=== PATIENT | female | born 1990 | race Caucasian/White ===

== ENCOUNTER 2024-01-01 23:45 | Emergency (ER) | payer OTHER, SELFPAY ==
[2024-01-01 23:52] VITALS: BP 155/89; PULSE 89; RESP 18; TEMP 36.6; O2SAT 99; BMI 50.1
--- NOTE | 2024-01-02 00:07 | ED_ITS ---
HPI - General Adult General Chief complaint: Neck Injury/Pain Stated complaint: Right side upper Neck pain Time Seen by Provider: 01/02/24 00:04 History of Present Illness HPI narrative: CC: Neck Pain pt. was in work related accident about 16 months ago. pain is worse. pt. states herniated discs c4-c7 and bulging disc in c6. denies further injury. 33 year old woman presenting to the emergency depart with concern of worsening neck pain. Has been particularly bad or more inflamed over the last 3 days. May of 2023 sustained an injury at work; she describes an axial load injury to her head by a heavy box. Since then time she has been struggling more with headaches and radiating pain into the left shoulder and shoulder blade and down her right arm. She does get numb fingers as well. Does have copy of June 2023 MRI showing disc impingement in the lower cervical spine. This pain is sharp and shooting in quality. Not specifically with weakness. Has been having trouble sleeping particularly over the last 3 days with escalation of this pain. Has tried warm and cold packs, rubbing on a tennis balls and all of her medications. Has been working with work comp. I did review medications which include naproxen and had been on gabapentin but now taking topiramate due to persistent headaches as well as being initiated on baclofen. She has received steroid injections. She does anticipate an appointment with her primary care provider tomorrow. Related Data Home Medications Medication Instructions Recorded Confirmed semaglutide 0.25 mg or 0.5 mg (2 0.25 mg subcut Q14D 01/01/24 01/01/24 mg/3 mL) subcutaneous pen injector (Ozempic) topiramate 25 mg tablet 50 mg PO BID 01/01/24 01/01/24 Allergies Allergy/AdvReac Type Severity Reaction Status Date / Time hydrocodone Allergy Mild Hives Verified 01/01/24 23:56 Review of Systems Status of ROS: Reports: 6 or more systems reviewed and unremarkable except as noted in History and below [facility] Social History Smoking Status: Never smoker Second hand tobacco smoke exposure: No How often do you have a drink containing alcohol: never How often do you have six or more drinks on one occasion: Never AUDIT-C Alcohol total score: 0 Non-prescribed substance use: marijuana (any form) Exam Narrative: Exam Narrative: She is pleasant. Resting semi recumbent. Calm. Not complaining. Moving very stiffly. Good strength in all extremities apparent. Good rotation of her neck to the left but limited to about 20? to the right with only slight flexion to the right when she reports new pain really escalates. I do not appreciate atrophy in the shoulders. She is not hypesthetic in her responses. Const: Vital Signs, click to edit/add: Vital Signs - 24 hr 01/01/24 23:52 01/02/24 00:44 Temperature 97.8 F 97.8 F Pulse Rate [Right Pulse Oximeter] 89 84 Respiratory Rate 18 18 Blood Pressure [Ri ght Upper Arm] 155/89 H 138/84 Pulse Oximetry 99 99 Oxygen Delivery Me thod Room Air Room Air Documenting provider has reviewed patient's vital signs: yes Course Vital Signs Vital signs: Initial Vital Signs Temperature 97.8 F 01/01/24 23:52 Temperature Source Temporal Artery Scan 01/01/24 23:52 Pulse Rate 89 01/01/24 23:52 Respiratory Rate 18 01/01/24 23:52 Blood Pressure 155/89 H 01/01/24 23:52 Blood Pressure Mean 111 H 01/01/24 23:52 Blood Pressure Position Sitting 01/01/24 23:52 Pulse Oximetry 99 01/01/24 23:52 Oxygen Delivery Method Room Air 01/01/24 23:52 Vital Signs Temperature 97.8 F 01/01/24 23:52 Pulse Rate 89 01/01/24 23:52 Respiratory Rate 18 01/01/24 23:52 Blood Pressure 155/89 H 01/01/24 23:52 Pulse Oximetry 99 01/01/24 23:52 Oxygen Delivery Method Room Air 01/01/24 23:52 Temperature 97.8 F 01/02/24 00:44 Pulse Rate 84 01/02/24 00:44 Respiratory Rate 18 01/02/24 00:44 Blood Pressure 138/84 01/02/24 00:44 Pulse Oximetry 99 01/02/24 00:44 Oxygen Delivery Method Room Air 01/02/24 00:44 Medical Decision Making MDM Narrative Medical decision making narrative: I inquire as to how she thinks we can help. Does not appear to need any new imaging. She would just like some temporary relief from pain. Ms. Minor does mention how there had been some discussion of neck collar of some sort to provide for what sounds like some offloading of this disc. I think we could provide a soft collar. She readily accepts this. We did discuss potential use of prednisone but with a diabetes she does note that her blood sugars tend ago rather high with prednisone. Is already using numerous classes of medications in her pain management. She is looking forward to potential visit with pain clinic although noting that surgery is anticipated once she is approved by insurance. We discussed potential benefit and concerns related to opiates. She is amenable to trying some just temporarily. See patient discharge plan for further discussion Discharge Plan Discharge Clinical Impression: Cervical radiculopathy Patient Disposition: Home, Self-Care Condition: Stable Additional Instructions: Wear the soft collar for comfort over the next week or so. Discuss with care provider otherwise as to how much you should be relying on this. Can take acetaminophen with any of the medications you are prescribed. You can take up to 1000 mg of acetaminophen every 4-6 hours not to exceed 4000 mg in 24 hours. Can take up to 800 mg of ibuprofen per dose but not at the same time of course as naproxen as you noted. Please follow-up with your primary care provider as scheduled tomorrow to discuss further plan for pain management or stop gap measures that can be taken. Best wishes in your anticipated surgery. [place] from [facility]. Keep in mind that each tablet of [place] contains 325mg of acetaminophen. Prescriptions: No Action Ozempic 0.25 mg or 0.5 mg (2 mg/3 mL) pen injector 0.25 mg subcut Q14D topiramate 25 mg tablet 50 mg PO BID Stand Alone Forms: mimoOn Info Instructions
[2024-01-02 00:44] VITALS: BP 138/84; PULSE 84; RESP 18; TEMP 36.6; O2SAT 99
--- OUTSIDE RECORDS SUMMARY | 2024-01-02 00:44 | XMS_ITS | Clinical Summary ---
Demographics Address [address] [facility] [place] [place] [address] Home Phone Phone Mobile Phone Email Address Preferred Language Bangladeshi Marital Status Unknown Uatsdin Affiliation Anglican Race White Ethnic Group Not or Lati no Author Name Unknown Organization [facility] Address [place], [place] [address] Care Team Providers Care Hospice/Home Health Aide Name Role Phone Pepe Caro Primary Care Provider [phone] Allergies Active Allergy Reactions Criticality Noted Date Comments Adhesive Rash 01/20/2010 tapes Adhesive Tape-Silicones Other - Describe In Comment Field 01/28/2011 Hydrocodone-Acetamino phen Itching 12/19/2016 Other reaction(s): itchy Metformin *Unknown - Pt Doesn' t Remember 12/20/2022 Medications Medication Sig Dispensed Refills Start Date End Date Status levothyroxine (SYNTHROID) 100 mcg tablet Take 176 mcg by mouth before breakfast. Active GLUCOSAM/GLUC ESCALANTE/[id number] (GLUCOSAMINE COMPLEX ORAL) Take 1 Tablet by mouth once daily. Active escitalopram oxalate (LEXAPRO) 10 mg tablet Take 10 mg by mouth once daily. Active gemfibrozil (LOPID) 600 mg tablet Take 600 mg by mouth 2 times daily before meals. Active glimepiride (AMARYL) 1 mg tablet Take 1 mg by mouth once daily with a meal. Active albuterol HFA (PRO-AIR; VENTOLIN; PROVENTIL) 90 mcg/actuation inhaler Inhale 2 Puffs by mouth every 4 hours if needed. 09/27/2021 Active buPROPion (WELLBUTRIN XL) 150 mg Extended-Release tablet Take 150 mg by mouth once daily. 09/09/2021 Active cyclobenzaprine (FLEXERIL) 10 mg tablet Take 10 mg by mouth at bedtime if needed. 09/09/2021 Active doxycycline (VIBRAMYCIN) 100 mg capsule Take 100 mg by mouth 2 times daily. 02/04/2022 Active semaglutide (Ozempic) 1 mg/dose (2 mg/1.5 mL) pen Inject 1 mg subcutaneous once weekly. Active oxyCODONE (ROXICODONE) 5 mg immediate release tabletIndications: Hidradenitis Take 1 Tablet (5 mg) by mouth every 4 hours if needed for Pain. 15 Tablet 02/18/2022 Active ibuprofen (ADVIL; MOTRIN) 600 mg tabletIndications: Postoperative pain Take 1 Tablet (600 mg) by mouth every 6 hours if needed for Pain. Maximum of 3200 mg in 24 hours. 30 Tablet 12/22/2022 Active Active Problems Problem Noted Date Diagnosed Date Headache(784.0) 01/10/2008 Polycystic ovaries 11/24/2006 Hirsutism 11/24/2006 Other general counseling and advice for contraceptive management 11/24/2006 Immunizations Name Administration Dates Next Due Hepatitis B (Peds) 07/12/2000 Human Papilloma Virus Vaccine 08/03/2010, 010 Influenza A (H1N1), Inactivated (Age >=3 Years) 10/01/2009 Influenza, IIV3 (Age >=3 years) 10/01/2009 Td (Age >=7 Years) 07/12/2000 Tdap 06/10/2009 Family History Medical History Relation Name Comments Diabetes Maternal Grandfather Heart Disease Maternal Grandfather Heart Disease Mother Hypertension Mother Diabetes Paternal Grandfather Heart Disease Paternal Grandfather Relation Name Status Comments Brother Alive Father Alive Maternal Grandfather Maternal Grandmother Alive Mother Alive Paternal Grandfather Paternal Grandmother Alive Sister 1 Alive Sister 2 Alive Social History Tobacco Use Types Packs/Day Years Used Date Smoking Tobacco: Never Smokeless Tobacco: Never Alcohol Use Standard Drinks/Week Comments No 0 (1 standard drink = 0.6 oz pur e alcohol) Sex and Gender Information Value Date Recorded Sex Assigned at Not on file Gender Identity Not on file Sexual Orientation Not on file Obstetrics History Last Filed Vital Signs Vital Sign Reading Time Taken Comments Blood Pressure 106/51 12/22/2022 10:15 AM CDT Pulse 79 12/22/2022 10:30 AM CDT Temperature 36.2 ??C (97.1 ??F) 12/22/2022 9:00 AM CD T Respiratory Rate 16 12/22/2022 10:3 0 AM CDT Oxygen Saturation 98% 12/22/2022 10: 30 AM CDT Inhaled Oxygen Concentration - - Weight 144.9 kg (319 lb 6.4 oz) 12/22/2022 6:52 AM CDT Height 170.2 cm (5' 7) 12/22/2022 6:52 AM CDT Body Mass Index 50.03 12/22/2022 6:52 AM CDT Plan of Treatment Health Maintenance Due Date Last Done Comments Depression screening for age 12+ 2001 HIV for age 15-65 01/09/2004 Hepatitis C screening for ag e 18-79 2007 Pap test for age 21-65 09/15/2012 9, 09/15/2009, 11/10/2008 BMI (ht and wt on same day) for age 18+ 12/16/2017 12/16/2016 Tetanus booster 06/10/2019 06/10/2009, 07/12/2000 COVID-19 vaccine series ( season) 2023 11/04/2021, 09/09/2021 Influenza for age 9-49 05/19/2024 0, 10/01/2009 Tdap Completed 06/10/2009 Pneumococcal series for age 6-64 Aged Out No longer eligible b ased on patient's age to complete this topic Medical Devices Implanted Type Area Trauma Manager Device Identifier Shelf Expiration Date Model / Serial / Lot Sys Intrauterine Mirena - [id number] Implanted:Qty: 1 on 12/22/2022 by Juan Fragoso MD at [facility] N/A: Uterus [employer] 11/15/2024 [id number] / / [id number] Procedures Procedure Name Priority Date/Time Associated Diagnosis Comments HEALTHCARE LIAISON THIN PREP PAP SCREEN IMAGED Routine 09/15/2009 3:42 PM SYSTEMS INTEGRATOR Abnormal Glandular Papanicolaou Smear of Cervix from Last 3 Months or Most Recently Relevant to Health Maintenance Results * HEALTHCARE LIAISON THIN PREP PAP SCREEN IMAGED (09/15/2009 3:42 PM SYSTEMS INTEGRATOR) CYTOLOGY CYTOPATHOLOGY REPORT [facility] Status: CORRECTED REPORT ?[id number] CLINICAL INFORMATION Last Date of LMP ? :absent Last Pap Date ?:11/10/08 Last Pap Result ?:LSIL ABN [place]/Bx Past 5 YRS :None Hormone Usage ?:None Menstrual Status ? :Irregular Periods [place]/Bx done today ? :No Additional Information :None given HPV Request ?:HPV if ASCUS SPECIMEN SOURCE ?:Cervical/vagina l ThinPrep Vial, screening SPECIMEN ADEQUACY ?:Satisfactory for evaluation Endocervical component ? present. INTERPRETATION/RES ULT Negative for intraepithelial lesion or malignancy (NIL) EDUCATIONAL NOTES AND SUGGESTIONS displays the correct provider order. This corrected report is issued to reflect the clinic incorrectly ordered this ThinPrep Pap as Screening instead of Diagnostic. The diagnosis does not change. Cytology 1st Screener ??:ll Cytology 2nd Screener ??:cmm Signed by ?: AP Technologist This specimen was screened by the FDA approved ThinPrep Imaging System and manually reviewed. NOTE: ??The Pap test is a screening technique, not a diagnostic procedure. ??It is used ??primarily to screen for squamous cancers and precursor lesions. ??Published studies have shown that it is subject to both false negative and false positive results. ??The pap test should not be used as the sole means to diagnose or exclude pre-malignant and malignant lesions. COLLECTED:09/15/09 ? ACCESSIONED: ??09/16/09 ?? 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 Do not delete or resolve the infection flag. 02/10/2022 02/10/2022 Guarantor Name Account Type Relation to Patient Date of Phone Billing Address Michelle Glover Personal/Family Self 1990 [address] [place] [address] Michelle Glover Personal/Family Self 1990 [address] [place] [address] Michelle Glover Workers Comp Self 1990 [id number] [address] [address] [address] Person[employer],[facility] Self [address] [place] [address] Advance Directives * Full Code (Latest Code Status on File) Date Activated Date Inactivated Comments 12/22/2022 6:36 AM 12/22/2022 2:50 PM Question Answer Comments Code Status Discussion: Reviewed Preferences * Full Code Date Activated Date Inactivated Comments 02/18/2022 11:26 AM 02/18/2022 5:46 PM Question Answer Comments Code Status Discussion: Unable to Assess Preferences, Provider to review later * Full Code Date Activated Date Inactivated Comments 12/19/2016 11:03 AM 12/19/2016 5:58 PM Care Teams Hospice/Home Health Aide Relationship Specialty Start Date End Date Pepe Caro PA PCP - General Physician Front Office Secretary 02/09/22
--- OUTSIDE RECORDS SUMMARY | 2024-01-02 00:44 | XMS_ITS | Clinical Summary ---
Demographics Address [address] [place] [address] Mobile Phone Home Phone Preferred Language ENG Marital Status Unknown Worship Affiliation Unknown Race Unknown Ethnic Group Non , /a, or Maori Origin Author Name Unknown Organization [facility] Address [address] [place] [address] Care Team Providers Care Mail Distribution Clerk Name Role Phone Unavailable Primary Care Provider Unavailabl e Source Comments You are receiving this document as you are listed as the primary care provider,follow-up provider, or the patient has been referred to you for consultation.This is in compliance with the Medicare andMedicaid EHR Incentive Program,which states Providers who transition their patient to another setting of careor provider of care or refers their patient to another provider of care shouldprovide summary care record for each transition of care or referral. [facility] Allergies Active Allergy Reactions Criticality Noted Date Comments Morphine And Related Gastrointestinal 2 Also Itching Medications Medication Sig Dispensed Refills Start Date End Date Status drug not in computer A whole list, cant think of them all. Glipizide for sure. Active Active Problems No known active problems Social History Tobacco Use Types Packs/Day Years Used Date Smoking Tobacco: Never Smokeless Tobacco: Never Tobacco Cessation:Counseling Given: Not Answered Sex and Gender Information Value Date Recorded Sex Assigned at Not on file Gender Identity Not on file Sexual Orientation Not on file Last Filed Vital Signs Vital Sign Reading Time Taken Comments Blood Pressure 143/96 04/07/2022 6:34 PM CDT Pulse 92 04/07/2022 6:34 PM CDT Temperature 37 ??C (98.6 ??F) 04/07/2022 6:34 PM CDT Respiratory Rate 20 04/07/2022 6:34 PM CDT Oxygen Saturation 100% 04/07/2022 6:34 PM CDT Inhaled Oxygen Concentration - - Weight - - Height - - Body Mass Index - - Plan of Treatment Health Maintenance Due Date Last Done Comments Cervical Cancer Screening Due 1989 Hep C Screening (Preventive Services) 1989 IPV (Polio) (2 of 3 - 4-dose series) 01/24/1994 12/27/1993 HIV Screening (Preventive Services) 2005 Adult Preventive Visit 2007 HepB (1) 01/09/2008 DTaP/Tdap/Td (3 - Tdap) 06/10/2019 06/10/2009, 12/27 COVID-19 Vaccine (1 - 2022-24 season) 2023 Influenza (#1) 2023 07/09/2015, 06/20, 08/03/2011, Additional history exists Zoster/Shingles (1 of 2) 2039 Pneumococcal Aged Out 07/17/2014 No longer eligi ble based on patient's age to complete this topic HPV Vaccine Completed 07/09/2015, 01/2014, 04/07/2011, Additional history exists HepA Aged Out No longer eligi ble based on patient's age to complete this topic Hib Aged Out No longer eligi ble based on patient's age to complete this topic MCV4 Aged Out No longer eligi ble based on patient's age to complete this topic Guarantor Name Account Type Relation to Patient Date of Phone Billing Address Michelle Minor Personal/Family Self 1990 [address] [place] [address] Michelle Minor Personal/Family Self 1990 [address] [place] [address]
[2024-01-02 00:45] VITALS: BP 138/84; PULSE 84; RESP 18; TEMP 36.6
--- OUTSIDE RECORDS SUMMARY | 2024-01-02 00:45 | XMS_ITS ---
Author Name Unknown Organization [facility] Address [address] [place] [address] Care Team Providers Care Coin Purse Framer Name Role Phone Unavailable Unavailable Unavailable Surgery Details Not on file Complications Check Surgery Details section. Procedure Estimated Blood Loss Check Surgery Details section. Procedure Findings Check Surgery Details section. Procedure Specimens Taken Check Surgery Details section.
--- OUTSIDE RECORDS SUMMARY | 2024-01-02 00:45 | XMS_ITS | Encounter Summary ---
Author Name Unknown Organization [facility] Address [address] [place] [address] Care Team Providers Care Measuring Clerk Name Role Phone Elsewhere, Pcp Primary Care Provider Unavailabl e Encounter Details Date Type Department Care Team (Late st Contact Info) Description 11/30/2023 Orders Only Department of Obstetrics and Gynecology in [address] [address] Inna Arias, SYLWIA, C.N.P. [address] [place] [id number] Diabetes Mellitus Type 2 Hyperglycemia (HCC) (Primary Dx); Hypothyroidism Social History Tobacco Use Types Packs/Day Years Used Date Smoking Tobacco: Never Smokeless Tobacco: Never Alcohol Use Standard Drinks/Week Comments No 0 (1 standard drink = 0.6 oz pur e alcohol) Humiliation, Afraid, Rape, and Kick questionnair e Answer Date Recorded Within the last year, have y ou been afraid of your partner or ex-partner? No 09/09/2021 Within the last year, have y ou been humiliated or emotionally abused in other ways by your partner or ex-partner? No Within the last year, have y ou been kicked, hit, slapped, or otherwise physically hurt by your partner or ex-partner? No 09/09/2021 Within the last year, have y ou been raped or forced to have any kind of sexual activity by your partner or ex-partner? No 09/09/2021 Social Connection and Isolat ion Panel [NHANES] Answer Date Recorded In a typical week, how many times do you talk on the phone with family, friends, or neighbors? More than three times a week 09/09/2021 How often do you get togethe r with friends or relatives? Twice a week 09/09/2021 How often do you attend chur ch or mu-ism services? Never 09/09/2021 Do you belong to any clubs o r organizations such as judaism groups, unions, fraternal or athletic groups, or school groups? No 09/09/2021 How often do you attend meet ings of the clubs or organizations you belong to? Never 09/09/2021 Are you , , di vorced, , never , or living with a partner? 09/09/2021 AUDIT-C Answer Date Recorded Q1: How often do you have a drink containing alc ohol? Never 09/09/2021 Average Number of Drinks Not on file 021 Frequency of Binge Drinking Not on file 08/19 Overall Financial Resource Strain (CARDIA) Answe r Date Recorded How hard is it for you to pa y for the very basics like food, housing, medical care, and heating? Not hard at all 09/09/2021 PHQ-2 Answer Date Recorded PHQ-2 Score 0 11/28/2023 [facility] - Occupational Stress Questionnaire Answer Date Recorded Do you feel stress - tense, restless, nervous, or anxious, or unable to sleep at night because your mind is troubled all the time - these days? Only a little 09/09/2021 Exercise Vital Sign Answer Date Recorde d On average, how many days pe r week do you engage in moderate to strenuous exercise (like a brisk walk)? 5 days 09/09/2021 On average, how many minutes do you engage in exercise at this level? 50 min 09/09/2021 Hunger Vital Sign Answer Date Recorded Within the past 12 months, y ou worried that your food would run out before you got the money to buy more. Never true 09/09/20 21 Within the past 12 months, t he food you bought just didn't last and you didn't have money to get more. Never true 09/09/2021 PRAPARE - Transportation Answer Date Re corded In the past 12 months, has l ack of transportation kept you from medical appointments or from getting medications? No 08/19 In the past 12 months, has l ack of transportation kept you from meetings, work, or from getting things needed for daily living? No 09/09/2021 Housing Stability Vital Sign Answer Brandon e Recorded In the last 12 months, was t here a time when you were not able to pay the mortgage or rent on time? No 09/09/2021 In the last 12 months, how many places have you lived? 1 09/09/2021 In the last 12 months, was t here a time when you did not have a steady place to sleep or slept in a residential (including now)? No 09/09/2021 Depression Answer Date Recor ded PHQ-9 Total Score (max 27) 4 11/27 Nutrition Answer Date Recorded Nutrition: EVOO Fat Source No 09/09 On average, how many serving s of fruits and vegetables do you eat per day (serving size is equal to 1 cup or approximately the size of a tennis ball)? 2-3 09/09/2021 Dental Answer Date Recorded Dental: Regular Dentist Yes 09/09/20 Employment Answer Date Recorded Employment status Employed and actively working without restrictions 09/09/2021 Education Answer Date Recorded What is the highest level of school you have completed or the highest degree you have received? 12th grade 03/22/2020 Sex and Gender Information Value Date Recorded Sex Assigned at Not on file Gender Identity Not on file Sexual Orientation Bisexual 03/22/2020 7: 55 PM CDT documented as of this encounter Plan of Treatment Scheduled Orders Name Type Priority Associated Diagnoses Orde r Schedule Hemoglobin A1c Lab Routine Diabetes Mellitus Type 2 Hyperglycemia (HCC) Expected: 06/01/2024 (Approximate), Expires: 11/29/2024 S-TSH (Thyroid-Stimulating Hormone - Sensitive) Lab Routine Hypothyroidism Expected: 06/01/2024 (Approximate), Expires: 03/01/2025 documented as of this encounter Visit Diagnoses Diagnosis Diabetes Mellitus Type 2 Hyperglycemia (HCC)- Primary Hypothyroidism documented in this encounter Additional Health Concerns Assessment Noted Time PHQ-9 Depression Total Score: 4 11/28/19 24 2:28 PM CDT documented as of this encounter Care Teams Measuring Clerk Relationship Specialty Start Date End Date Elsewhere, Pcp PCP - General Internal Medicine 08/30/22 documented as of this encounter
--- OUTSIDE RECORDS SUMMARY | 2024-01-02 00:45 | XMS_ITS | Referral Summary ---
Author Name Unknown Organization [facility] Address [address] [place] [address] Care Team Providers Care Tangled Yarn Worker Name Role Phone Elsewhere, Pcp Primary Care Provider Unavailabl e Source Comments Patient records contain information from all sites at [facility]. For routine questions regarding patient records, call [phone] during business hours, M-F 8:00 AM - 5:00 PM Central Time. Record requests for emergency care only can be directed to [phone] at any time.[facility] Encounters Date Type Department Care Team Description 11/30/2023 Orders Only Department of Obstetrics and Gynecology in [place], [place] [address] [place] [address] Inna Arias APRN, C.N.P. Diabetes Mellitus Type 2 Hyperglycemia (HCC) (Primary Dx); Hypothyroidism 11/28/2023 3:17 PM CDT - 11/28/2023 11:59 PM CDT Hospital Encounter Department of Laboratory Medicine in [place], [place] [address] [place] [phone] Inna Arias APRN, C.N.P. Preventive Gynecological Exam Discharge Disposition: Home or Self Care 11/28/2023 2:30 PM CDT Office Visit Department of Obstetrics and Gynecology in [place], [place] [address] [place] [phone] Inna Arias APRN, C.N.P. Preventive Gynecological Exam (Primary Dx); Diabetes Mellitus Type 2 Hyperglycemia (HCC); Polycystic Ovary Syndrome; Surveillance Intrauterine Device Discharge Disposition: Home or Self Care from Last 3 Months Allergies Active Allergy Reactions Criticality Noted Date Comments Adhesive Tape-Silicones Other (see comments) 01/28/2011 Hydrocodone-Acetamino phen Itching,Rash 11/26/2015 Metformin GI intolerance Low 11/25/2019 CANNOT tolerate even 500mg ER daily or 250mg twice daily Morphine GI intolerance 04/04/2022 Also Itching Medications Medication Sig Dispensed Refills Start Date End Date Status GLUCOSAMINE SULFATE (GLUCOSAMINE ORAL) Take 1 tablet by mouth daily. 10/07/2015 Active flash glucose sensor (FreeStyle Catherine 14 Day Sensor) kitIndications:Diab etes Mellitus Type 2 Hyperglycemia (HCC) 1 each every 14 (fourteen) days. 6 kit 11 09/09/2021 Active blood sugar diagnostic stripsIndications:D iabetes Mellitus Type 2 Hyperglycemia (HCC) 2 test daily. 60 test 11 09/09/2021 4 Active blood glucose ctl high,nml,low solutionIndications :Diabetes Mellitus Type 2 Hyperglycemia (HCC) Glucose control solution provides an easy way to ensure accurate blood glucose testing. 1 each 09/09/2021 Active pen needle, diabetic (BD Ultra-Fine Short Pen Needle) 31 gauge x 5/16 needleIndications:D iabetes Mellitus Type 2 Hyperglycemia (HCC) 2 Injection daily. 200 each 11 09/09/2021 Active albuterol (ProAir HFA) 90 mcg/actuation inhaler Inhale 2 puffs every 4 (four) hours as needed for wheezing or shortness of breath. 25.5 g 3 09/27/2021 Active pen needle, diabetic (Pen Needle) 31 gauge x 3/16 needle 1 each (1 Injection total) daily. 100 each 11 01/07/2022 Active blood-glucose meter,continuous misc Use to monitor blood glucose (DX: E11.65) 1 each 01/07/2022 Active blood-glucose sensor device Change sensor every 10 days (DX: E11.65) 9 each 3 01/07/2022 Active blood-glucose transmitter device Change transmitter every 3 months. (DX: E11.65) 1 each 4 01/07/2022 Active atorvastatin (LIPITOR) 10 mg tablet Take 1 tablet (10 mg total) by mouth daily. 90 tablet 3 11/11/2022 Active levothyroxine (SYNTHROID, LEVOTHROID) 88 mcg tablet Take 2 tablets (176 mcg total) by mouth daily. 180 tablet 3 11/11/2022 Active glipiZIDE (GLUCOTROL) 5 mg tablet Take 2 tablets (10 mg total) by mouth 2 (two) times a day before breakfast and dinner. 360 tablet 3 11/11/2022 Active buPROPion XL (WELLBUTRIN XL) 150 mg 24 hr tablet Take 1 tablet (150 mg total) by mouth every morning. 90 tablet 3 11/11/2022 Active traMADoL (ULTRAM) 50 mg tabletIndications:C hronic Pain/Nonacute Pain Take 1-2 tablets (50-100 mg total) by mouth every 6 (six) hours as needed for moderate pain or score 4-6 of 10 Indications: Chronic Pain/Nonacute Pain. 30 tablet 11/11/2022 Active cyclobenzaprine (FLEXERIL) 10 mg tablet Active naproxen-capsicum oleoresin 500 mg- 0.025 % kit 1 tablet with food or milk as needed Orally every 8 hrs for 30 days Active baclofen (LIORESAL) 10 mg tablet 1 tablet as needed Orally Three times a day for 30 days Active methocarbamoL (ROBAXIN) 500 mg tablet Take 1 tablet by mouth daily. 10/24/2023 Active predniSONE (DELTASONE) 20 mg tablet Active topiramate (Topamax) 25 mg tablet 2 tablet Orally Twice a day for 30 days Active semaglutide (OZEMPIC) 0.25 mg or 0.5 mg (2 mg/3 mL) injectionIndication s:Diabetes Mellitus Type 2 Hyperglycemia (HCC) Inject 0.25 mg under the skin every 7 (seven) days. For 4 weeks then increase to 0.5mg every 7 days 1.5 mL 11/28/2023 4 Active Problems Problem Noted Date Diagnosed Date Surveillance Intrauterine Device 11/28/2023 Overview: Mirena IUD inserted 12/22/2022. Strings not visible on exam. Ultrasound done to confirm that IUD is present and it is. Strings noted to be about 1 cm within the cervix. Preventive Gynecological Exam 11/25/2022 Overview: Pap smear: 11/28/2023 obtained and pending. No history of abnormal. Gonorrhea/Chlamydia Screen: 11/28/2023 obtained and pending. Mammogram: Start at age 40. Lipid panel: 11/28/2023 obtained and pending. Diabetic screenin11/28/2023 hemoglobin A1c obtained and pending. History of type 2 diabetes. Colon screening: Begin at age 44. DEXA Scan: Begin at age 65. HPV Vaccine: 4vHPV: 04/07/2011, 07/23/2014. 9vHPV: 07/09/2015. Tdap Vaccine: 03/26/2019. Influenza Vaccine: Declined. - Discussed the importance of healthy diet and exercise for overall well-being. - Recommend at least 30 minutes of aerobic exercise most days of the week. - Recommend 1200 mg of calcium daily. Last Assessment & Plan: Discussed exam findings with patient. I will plan to send her a portal message when I receive her results. Recommend she follow up in 1 year for her annual preventative health exam or sooner if she is any concerns or problems. Persistent Depressive Disorder 12/23/2020 Anxiety 05/15/2020 Diabetes Mellitus Type 2 Hyperglycemia 9 Overview: She has the metabolic syndrome. Her diabetes control is improving with Byetta and weight loss. Polycystic Ovary Syndrome 10/03/2017 Overview: Managing effectively with her Mirena IUD. Hypothyroidism 10/07/2015 Hyperlipidemia 07/16/2015 Hidradenitis Suppurativa 01/20/2011 Hirsutism 11/24/2006 Resolved Problems Problem Noted Date Diagnosed Date Resolved Date Amenorrhea 11/25/2022 11/28/2023 Overview: Amenorrhea since 2019 without protection. Has previously tried Depo-Provera, multiple OCPs, metformin and spironolactone without ability to tolerate medications. Surgical consult ordered for consideration of hysteroscopic dilation and curettage and Mirena IUD insertion for endometrial protection. Elevated Blood Pressure 03/27/2020 12/2 11/2020 Overview: Blood pressure is normal today and she has not been diagnosed with hypertension, but she has had elevated blood pressures on several occasions in the past. Therefore, combination oral contraceptive pills were not initiated today. We will assess her blood pressure at the time of the next visit and if it is persistently in the normal range, I would plan to transition her to a combination oral contraceptive pill, as that will likely be better tolerated. Depression Major Recurrent Moderate 01/09/2019 11/04/2019 Morbid Obesity Body Mass Ind ex 50.0-59.9 Adult 11/22/2017 11/11/2022 Gastroesophageal Reflux Dise ase Without Esophagitis 10/03/2017 09/09/2021 Impaired Fasting Glucose 10/03/2017 Apnea Sleep Obstructive 09/30/201308/19 Secondary Amenorrhea 11/24/2006 019 Immunizations Name Administration Dates Next Due 4vHPV (discontinued) 07/09/2015,07/23/20 14,04/07/2011,2009,05/31/2010 9vHPV 07/09/2015 DTP 12/27/1993 DTaP (Infanrix, Tripedia) 06/10/2009 H1N1 All Forms 10/01/2009 HepB Pediatric/Adolescent 07/12/2000 HepB, Unspecified 03/20/2001,10/20/2000,06/02/20 00 IPV 12/27/1993 Influenza (IM) Preservative Free 10/01/2009 Influenza, Injectable, Quadrivalent 07/09/2015 Influenza, Unspecified 07/09/2015,2013,08/03/2011,2009 MMR 07/18/2001 PPSV23(Discontinued) 07/17/2014 SARS-COV-2 (COVID-19) - MODERNA(Discontinued) 11/04/2021,09/09/2021 Td, (Adult) Unspecified 07/12/2000 Tdap 03/26/2019,06/10/2009 Social History Tobacco Use Types Packs/Day Years Used Date Smoking Tobacco: Never Smokeless Tobacco: Never Tobacco Cessation:Counseling Given: Not Answered Alcohol Use Standard Drinks/Week Comments No 0 [...] often do you attend chur ch or yazidism services? Never 09/09/2021 Do you belong to any clubs o r organizations such as latter-day groups, unions, fraternal or athletic groups, or [...] Answer Date Recorded PHQ-2 Score 0 11/28/2023 [facility] Health - Occupational Stress Questionnaire Answer Date [...] place to sleep or slept in a long term (including now)? No 09/09/2021 Depression Answer Date [...] Orientation Bisexual 03/22/2020 7: 55 PM CDT Last Filed Vital Signs Vital Sign Reading Time Taken Comments Blood Pressure 130/76 11/28/2023 2:25 PM CDT Pulse 81 11/28/2023 2:25 PM CDT Temperature 35.8 ??C (96.4 ??F) 01/06/2023 4:13 PM CD T Respiratory Rate 18 12/06/2022 3:08 PM CDT Oxygen Saturation 98% 09/27/2021 4:12 PM WRAPPER STEMMER OPERATOR Inhaled Oxygen Concentration - - Weight 151 kg (331 lb 12.7 oz) 11/28/2023 2:25 P M CDT Height 172.3 cm (5' 7.84) 11/28/2023 2:25 PM CD T Body Mass Index 50.69 11/28/2023 2:25 PM CDT Plan of Treatment Not on file Procedures Procedure Name Priority Date/Time Associated Diagnosis Comments THYROID-STIMULATING HORMONE-SENSITIVE (S-TSH) Routine 11/28/2023 3:32 PM CDT Preventive Gynecological Exam LIPID PANEL, S Routine 11/28/2023 3:32 PM CDT Preventive Gynecological Exam HEMOGLOBIN A1C, B Routine 11/28/2023 3:3 2 PM CDT Preventive Gynecological Exam CBC WITH DIFFERENTIAL, B Routine 11/28/2023 3:32 PM CDT Preventive Gynecological Exam COMPREHENSIVE METABOLIC PANEL, S/P Routine 11/28/2023 3:32 PM CDT Preventive Gynecological Exam HCV AB SCRN W/REFLEX TO HCV PCR, S Routine 11/28/2023 3:32 PM CDT Preventive Gynecological Exam HIV-1/-2 AG AND AB SCREEN, PLASMA Routine 11/28/2023 3:32 PM CDT Preventive Gynecological Exam THINPREP W/HPV CO-TEST SCREEN Routine 11/28/2023 2:59 PM CDT Preventive Gynecological Exam HPV WITH GENOTYPING, PCR, THINPREP Routine 11/28/2023 2:59 PM CDT CHLAMYDIA/GONORRHOEAE AMPLIFIED RNA Routine 11/28/2023 2:59 PM CDT Preventive Gynecological Exam ALBUMIN, RANDOM, U Routine 11/11/2022 3: 25 PM WRAPPER STEMMER OPERATOR Diabetes Mellitus Type 2 Hyperglycemia (HCC) Hyperlipidemia Hypothyroidism from Last 3 Months or Most Recently Relevant to Health Maintenance Results * HIV-1/-2 Ag and Ab Screen, Plasma (11/28/2023 3:32 PM CDT) HIV Ag/Ab Screen, P Negative Negative 11/29/2023 1:35 PM CDT [facility] Comment: Negative result does not rule out HIV infection. If exposure to HIV infection occurred <14 days ago, contact the laboratory to request addition of HIV-1/HIV-2 RNA detection, Plasma (HIP12). HIV-1 p24 Ag Screen, P Negative Negative 11/29/2023 1:35 PM CDT [facility] Comment: Negative result does not rule out HIV infection. If exposure to HIV infection occurred <14 days ago, contact the laboratory to request addition of HIV-1/HIV-2 RNA detection, Plasma (HIP12). HIV-1 Ab Screen, P Negative Negative 11/29/2023 1:35 PM CDT [facility] Comment: Negative result does not rule out HIV infection. If exposure to HIV infection occurred <14 days ago, contact the laboratory to request addition of HIV-1/HIV-2 RNA detection, Plasma (HIP12). HIV-2 Ab Screen, P Negative Negative 11/29/2023 1:35 PM CDT [facility] Comment: Negative result does not rule out HIV infection. If exposure to HIV infection occurred <14 days ago, contact the laboratory to request addition of HIV-1/HIV-2 RNA detection, Plasma (HIP12). Blood (Blood, Venous) 11/28/2023 3:32 PM CDT 11/29/2023 12:07 PM CDT Inna Arias APRN, C.N.P. LAB MICRO BIOLOGY - BLOOD ORDERABLES [facility] [address] [place] [address], [facility] [address] [address] * (ABNORMAL) Lipid Panel (11/28/2023 3:32 PM CDT) Triglycerides 376(H) mg/dL 11/28/2023 6:03 PM CDT [facility] Comment: ----REFERENCE VALUE---- Normal: <150 mg/dL Borderline High: 150-199 mg/dL High: 200-499 mg/dL Very High: > or =500 mg/dL Cholesterol, Total 228(H) mg/dL 2023 6:03 PM CDT [facility] Comment: ----REFERENCE VALUE---- Desirable: < 200 mg/dL Borderline High: 200 - 239 mg/dL High: > or = 240 mg/dL Cholesterol, LDL, Calculated 121 mg/dL 11/28/2023 6:03 PM CDT [facility] Comment: ----REFERENCE VALUE---- Desirable: <100 mg/dL Above Desirable: 100-129 mg/dL Borderline High: 130-159 mg/dL High: 160-189 mg/dL Very High: >=190 mg/dL ----ADDITIONAL INFORMATION---- LDL cholesterol calculated using the Lazar/NIH equation. Cholesterol, HDL 41(L) >=50 mg/dL 11/28/19 6:03 PM CDT [facility] Cholesterol, Non-HDL, Calculated 187(H) mg/dL 11/28/2023 6:03 PM CDT [facility] Comment: ----REFERENCE VALUE---- Desirable: <130 mg/dL Above Desirable: 130-159 mg/dL Borderline High: 160-189 mg/dL High: 190-219 mg/dL Very High: > or =220 mg/dL Fasting (8 HR or more) No 11/28/2023 5:38 PM CDT [facility] Blood (Blood, Venous) 11/28/2023 3:32 PM CDT 11/28/2023 5:38 PM CDT Inna Arias APRN, C.N.P. LAB BLOOD ADD-ON [facility] [address] [place], [place] [address] [place] [address] [place] [address] * HCV Ab Scrn w/Reflex to HCV PCR, Serum (11/28/2023 3:32 PM CDT) HCV Ab Screen, S Negative Negative 11/28/19 7:37 PM CDT [facility] Comment: Biotin has been identified by the touring production manager as a potential interfering substance. Higher concentrations of biotin may be found in multivitamins, hair/nail supplements, and workout supplements. If the result does not match clinical observations, repeat testing after patient refrains from the use of supplements for at least 12 hours. Blood (Blood, Venous) 11/28/2023 3:32 PM CDT 11/28/2023 6:58 PM CDT [facility] - 11/28/2023 7:37 PM CDT Specimen Information: Specimen ID: [id number] Specimen Type: Blood Specimen Collection Start Date: 11/28/2023 ??3:32 PM Specimen Received Date: 11/28/2023 ??6:58 PM Specimen ID: [id number] Specimen Type: Blood Specimen Collection Start Date: 11/28/2023 ??3:32 PM Specimen Received Date: 11/28/2023 ??7:03 PM Inna Arias APRN, C.N.P. LAB MICRO BIOLOGY - BLOOD ORDERABLES [facility] [address] [place] [address], [facility] [place] [address] [place] [address] * CBC with Differential, Blood (11/28/2023 3:32 PM CDT) Pathologist [facility] Hemoglobin 13.7 11.6 - 15.0 g/dL 11/28/2023 3:43 PM CDT [facility] Hematocrit 40.8 35.5 - 44.9 % 11/28/2023 3:43 PM CDT [facility] Erythrocytes 4.73 3.92 - 5.13 x10(12)/L 11/28/2023 3:43 PM CDT [facility] MCV 86.3 78.2 - 97.9 fL 11/28/2023 3:43 PM CDT [facility] RBC Distrib Width 13.9 12.2 - 16.1 % 11/28/2023 3:43 PM CDT [facility] Platelet Count 268 157 - 371 x10(9)/L 11/28/2023 3:43 PM CDT [facility] Leukocytes 9.4 3.4 - 9.6 x10(9)/L 11/28/2023 3:43 PM CDT [facility] Neutrophils 5.79 1.56 - 6.45 x10(9)/L 11/28/2023 3:43 PM CDT FB60 Lymphocytes 2.84 0.95 - 3.07 x10(9)/L 11/28/2023 3:43 PM CDT FB[facility] Monocytes 0.51 0.26 - 0.81 x10(9)/L 11/28/2023 3:43 PM CDT FB[facility] Eosinophils 0.17 0.03 - 0.48 x10(9)/L 11/28/2023 3:43 PM CDT FB60 Basophils 0.04 0.01 - 0.08 x10(9)/L 11/28/2023 3:43 PM CDT [facility]60 Blood (Blood, Venous) 11/28/2023 3:32 PM CDT 11/28/2023 3:32 PM CDT Inna Arias APRN, C.N.P. LAB BLOOD ADD-ON [facility] [address] [place] [address], [facility] FB60 [facility] [place] [address] [place] [address] * (ABNORMAL) S-TSH (Thyroid-Stimulating Hormone - Sensitive) (11/28/2023 3:32 PM CDT) TSH, Sensitive 4.5(H) 0.3 - 4.2 mIU/L 11/28/2023 6:15 PM CDT [facility] Blood (Blood, Venous) 11/28/2023 3:32 PM CDT 11/28/2023 5:38 PM CDT Inna Arias APRN, Yemi.N.P. LAB BLOOD ADD-ON [facility] [address] [place] [address], [place] [address] [facility] [place] [address] [place] [address] * (ABNORMAL) Hemoglobin A1c (11/28/2023 3:32 PM CDT) Hemoglobin A1c, B 10.3(H) 4.2 - 5.6 % 11/28/2023 5:59 PM CDT [facility] Comment: Hemoglobin A1c values greater than or equal to 6.5 percent are diagnostic for diabetes mellitus. ??Diagnosis should be confirmed by repeat testing. ??In diabetic patients, HbA1c goals should be discussed with healthcare provider. Blood (Blood, Venous) 11/28/2023 3:32 PM CDT 11/28/2023 5:39 PM CDT Inna Arias APRN, Yemi.N.P. LAB BLOOD ADD-ON [facility] [address] [place] [address], [place] [address] [facility] [place] [address] [address] * (ABNORMAL) Comprehensive Metabolic Panel (11/28/2023 3:32 PM CDT) Potassium, P 4.5 3.6 - 5.2 mmol/L 11/28/2023 6:03 PM CDT [facility] Sodium, P 136 135 - 145 mmol/L 11/28/2023 6:03 PM CDT [facility] Chloride, P 99 98 - 107 mmol/L 11/28/2023 6:03 PM CDT [facility] Bicarbonate, P 24 22 - 29 mmol/L 11/28/2023 6:03 PM CDT [facility] Anion Gap, P 13 7 - 15 11/28/2023 6:03 PM CDT [facility] BUN (Blood Urea Nitrogen), P 16 6 - 21 mg/dL 11/28/2023 6:03 PM CDT [facility] Creatinine 0.64 0.59 - 1.04 mg/dL 11/28/2023 6:03 PM CDT [facility] Estimated GFR (eGFR) >90 >=60 mL/min/BS A 11/28/2023 6:03 PM CDT [facility] Comment: Estimated GFR calculated using the 2020 CKD_EPI creatinine equation. Calcium, Total, P 9.9 8.6 - 10.0 mg/dL 11/28/2023 6:03 PM CDT [facility] Glucose, P 298(H) 70 - 140 mg/dL 11/28/2023 6:03 PM CDT [facility] Protein, Total, P 7.9 6.3 - 7.9 g/dL 11/28/2023 6:03 PM CDT [facility] Albumin, P 4.2 3.5 - 5.0 g/dL 11/28/2023 6:03 PM CDT [facility] Aspartate Aminotransferase (AST), P 43 8 - 43 U/L 11/28/2023 6:03 PM CDT [facility] Alkaline Phosphatase, P 85 35 - 104 U/L 11/28/2023 6:03 PM CDT [facility] Alanine Aminotransferase (ALT), P 41 7 - 45 U/L 11/28/2023 6:03 PM CDT [facility] Bilirubin, Total, P 0.3 0.0 - 1.2 mg/dL 11/28/2023 6:03 PM CDT [facility] Blood (Blood, Venous) 11/28/2023 3:32 PM CDT 11/28/2023 5:38 PM CDT Inna Arias APRN, C.N.P. LAB BLOOD ADD-ON [facility] [address] [place] [address], [facility] [address] [facility] [place] [address] [place] [address] * ThinPrep w/HPV Co-Test Screen (11/28/2023 2:59 PM CDT) 12/04/2023 2:32 PM CDT [facility] Report electronically signed by ZAMZAM Arshad. Ch.B. I verify that I have examined all relevant slides/materials for the specimen(s) and rendered or confirmed the diagnosis. 12/04/2023 2:32 PM CDT [facility] Gross Description Received specimen in a ThinPrep vial. 12/04/2023 2:32 PM CDT [facility] Pap Test Source Cervical/Endocervi kd 12/04/2023 2:32 PM CDT [facility] Clinical History WWE 12/04/19 2:32 PM CDT [facility] Menstrual Status(LMP, PM, ) Unknown 12/04/2023 2:32 PM CDT [facility] Hormone Therapy/Contracep tives Unknown 12/04/2023 2:32 PM CDT [facility] Interpretation Cervical/Endocervi kd ??(ThinPrep): Satisfactory for Evaluation Partially obscuring bacteria Negative for Intraepithelial Lesion or Malignancy Reactive cellular changes associated with: ? Reparative or inflammatory changes High Risk HPV: ??Negative Negative for High Risk HPV by nucleic acid amplification. The following High Risk HPV types were not detected: 16, 18, 31, 33, 35, 39, 45, 51, 52, 56, 58, 59, 66, and 68. 12/04/2023 2:32 PM CDT [facility] Thin Prep Vial (Cervix/Endocerv ix) 11/28/2023 2:59 PM CDT 11/29/2023 6:40 AM CDT Inna Arias APRN, C.N.P. LAB PAP P ATHDX ORDERABLES [facility] [address] [place] [address], [facility] [address] [address] * HPV with Genotyping, PCR, ThinPrep (11/28/2023 2:59 PM CDT) HPV with Genotyping, ThinPrep, PCR Negative Negative 11/29/2023 7:11 PM CDT [facility] Comment: Negative for high risk HPV by nucleic acid amplification. ??The following high risk HPV types were not detected: 16, 18, 31, 33, 35, 39, 45, 51, 52, 56, 58, 59, 66, and 68 This result does not rule out HPV in the patient, as the sensitivity of the test depends on the timing of the specimen collection and the quality of the specimen. Result should be correlated with patient's history, clinical presentation, and SOLE ASSESSOR cytology report. 11/28/2023 2:59 PM CDT 11/29/2023 6:40 AM CDT Inna Airas APRN, C.N.P. LAB MICRO BIOLOGY - GENERAL ORDERABLES Performing Organization Address City/[facility] Co de Phone Number [facility] [address] [place] [address], [facility] [address] [place] [address] * Chlamydia / Gonorrhoeae Amplified RNA (11/28/2023 2:59 PM CDT) Source Swab, Vagina 11/29/2023 7:12 PM CDT [facility] Chlamydia trachomatis amplified RNA Negative Negative 11/29/2023 7:12 PM CDT [facility] Source Swab, Vagina 11/29/2023 7:12 PM CDT [facility] Neisseria gonorrhoeae amplified RNA Negative Negative 11/29/2023 7:12 PM CDT [facility] Swab (Vagina) 11/28/2023 2:5 9 PM CDT 11/29/2023 10:11 AM CDT Inna Arias APRN, C.N.P. LAB MICRO BIOLOGY - GENERAL ORDERABLES Performing Organization Address City/[facility] Co de Phone Number [facility] [address] [place] [address], [place] [address] * Albumin, Random, Urine (11/11/2022 3:25 PM WRAPPER STEMMER OPERATOR) Microalbumin <12.0 mg/L 11/12/2022 10:12 AM WRAPPER STEMMER OPERATOR [facility] Comment:If clinically indica dora, contact the lab for additional testing. Creatinine 137 mg/dL 11/12/2022 10:12 AM WRAPPER STEMMER OPERATOR [facility] Albumin/Creatinine Ratio <9 <25 mg/g 11/12/2022 10:12 AM WRAPPER STEMMER OPERATOR [facility] Comment: This ratio may not correspond with the reference range because one or both of the values used to calculate the ratio was above or below the quantification limits. Urine (Urine, Voided) 11/11/2022 3:25 PM WRAPPER STEMMER OPERATOR 11/12/2022 9:34 AM WRAPPER STEMMER OPERATOR Pepe Caro P.A.-C., P.A. LAB URIN E ORDERABLES [facility] [address] [place] [address], [facility] [place] [address] [place] [address] from Last 3 Months or Most Recently Relevant to Health Maintenance Care Teams Tangled Yarn Worker Relationship Specialty Start Date End Date Elsewhere, Pcp PCP - General Internal Medicine 08/30/22
--- OUTSIDE RECORDS SUMMARY | 2024-01-02 00:45 | XMS_ITS | Encounter Summary ---
Author Name Unknown Organization [facility] Address [address] [place] [address] Care Team Providers Care C Iron Worker Name Role Phone Elsewhere, Pcp Primary Care Provider Unavailabl e Encounter Details Date Type Department Care Team (Latest Contact Info) Description 11/28/2023 3:17 PM CDT - 11/28/2023 11:59 PM CDT Hospital Encounter Department of Laboratory Medicine in [place], [place] [address] [place] [address] Inna Arias, UNDERWATER HUNTER, C.N.P. [address] [place] [address] Preventive Gynecological Exam Discharge Disposition: Home or Self Care Social History Tobacco Use Types Packs/Day Years [...] often do you attend chur ch or roman catholic services? Never 09/09/2021 Do you belong to any clubs o r organizations such as taoism groups, unions, fraternal or athletic groups, or [...] Answer Date Recorded PHQ-2 Score 0 11/28/2023 [facility] - Occupational Stress Questionnaire Answer Date [...] place to sleep or slept in a penitentiary (including now)? No 09/09/2021 Depression Answer Date [...] Date Recorded Dental: Regular Dentist Yes 09/09/20 21 Employment Answer Date Recorded Employment status Employed [...] PM CDT documented as of this encounter Medications at Time of Discharge Medication Sig Dispensed Refills Start Date End Date albuterol (ProAir HFA) 90 mcg/actuation inhaler Inhale 2 puffs every 4 (four) hours as needed for wheezing or shortness of breath. 25.5 g 3 09/27/2021 baclofen (LIORESAL) 10 mg tablet 1 tablet as needed Orally Three times a day for 30 days blood glucose ctl high,nml,low solutionIndications:Laura betes Mellitus Type 2 Hyperglycemia (HCC) Glucose control solution provides an easy way to ensure accurate blood glucose testing. 1 each 09/09/2021 blood sugar diagnostic stripsIndications:Diabe yohan Mellitus Type 2 Hyperglycemia (HCC) 2 test daily. 60 test 11 09/09/2021 01/07/2024 blood-glucose meter,continuous [facility] Use to monitor blood glucose (DX: E11.65) 1 each 01/07/2022 blood-glucose sensor device Change sensor every 10 days (DX: E11.65) 9 each 3 01/07/2022 blood-glucose transmitter device Change transmitter every 3 months. (DX: E11.65) 1 each 4 01/07/2022 cyclobenzaprine (FLEXERIL) 10 mg tablet flash glucose sensor (FreeStyle Catherine 14 Day Sensor) kitIndications:Diabetes Mellitus Type 2 Hyperglycemia (HCC) 1 each every 14 (fourteen) days. 6 kit 11 09/09/2021 GLUCOSAMINE SULFATE (GLUCOSAMINE ORAL) Take 1 tablet by mouth daily. 10/07/2015 methocarbamoL (ROBAXIN) 500 mg tablet Take 1 tablet by mouth daily. 10/24/2023 naproxen-capsicum oleoresin 500 mg- 0.025 % kit 1 tablet with food or milk as needed Orally every 8 hrs for 30 days pen needle, diabetic (BD Ultra-Fine Short Pen Needle) 31 gauge x 5/16 needleIndications:Diabe yohan Mellitus Type 2 Hyperglycemia (HCC) 2 Injection daily. 200 each 11 09/09/2021 pen needle, diabetic (Pen Needle) 31 gauge x 3/16 needle 1 each (1 Injection total) daily. 100 each 11 01/07/2022 predniSONE (DELTASONE) 20 mg tablet topiramate (Topamax) 25 mg tablet 2 tablet Orally Twice a day for 30 days traMADoL (ULTRAM) 50 mg tabletIndications:Chron ic Pain/Nonacute Pain Take 1-2 tablets (50-100 mg total) by mouth every 6 (six) hours as needed for moderate pain or score 4-6 of 10 Indications: Chronic Pain/Nonacute Pain. 30 tablet 11/11/2022 semaglutide (OZEMPIC) 0.25 mg or 0.5 mg (2 mg/3 mL) injectionIndications:Di abetes Mellitus Type 2 Hyperglycemia (HCC) Inject 0.25 mg under the skin every 7 (seven) days. For 4 weeks then increase to 0.5mg every 7 days 1.5 mL 11/28/2023 12/28/2023 documented as of this encounter Plan of Treatment Not on file documented as of this encounter Procedures Procedure Name Priority Date/Time Associated Diagnosis Comments HIV-1/-2 AG AND AB SCREEN, PLASMA Routine 11/28/2023 3:32 PM CDT Preventive Gynecological Exam LIPID PANEL, S Routine 11/28/2023 3:32 PM CDT Preventive Gynecological Exam HCV AB SCRN W/REFLEX TO HCV PCR, S Routine 11/28/2023 3:32 PM CDT Preventive Gynecological Exam CBC WITH DIFFERENTIAL, B Routine 11/28/2023 3:32 PM CDT Preventive Gynecological Exam THYROID-STIMULATING HORMONE-SENSITIVE (S-TSH) Routine 11/28/2023 3:32 PM CDT Preventive Gynecological Exam HEMOGLOBIN A1C, B Routine 11/28/2023 3:3 2 PM CDT Preventive Gynecological Exam COMPREHENSIVE METABOLIC PANEL, S/P Routine 11/28/2023 3:32 PM CDT Preventive Gynecological Exam documented in this encounter Results * HCV Ab Scrn w/Reflex to HCV PCR, Serum (11/28/2023 3:32 PM CDT) HCV Ab Screen, S Negative Negative 11/28/19 24 7:37 PM CDT [facility] Comment: Biotin has been identified by the superintendent transmission as a potential interfering substance. Higher concentrations of biotin may be found in multivitamins, hair/nail supplements, and workout supplements. If the result does not match clinical observations, repeat testing after patient refrains from the use of supplements for at least 12 hours. Blood (Blood, Venous) 11/28/2023 3:32 PM CDT 11/28/2023 6:58 PM CDT Narrative [facility] - 11/28/2023 7:37 PM CDT Specimen Information: Specimen ID: [id number] Specimen Type: Blood Specimen Collection Start Date: 11/28/2023 ??3:32 PM Specimen Received Date: 11/28/2023 ??6:58 PM Specimen ID: [id number] Specimen Type: Blood Specimen Collection Start Date: 11/28/2023 ??3:32 PM Specimen Received Date: 11/28/2023 ??7:03 PM Jeffrey Coyne APRNNHilaria LAB MICRO BIOLOGY - BLOOD ORDERABLES [facility] [address] [place] [address], [facility] [place] [address] [place] [address] * HIV-1/-2 Ag and Ab Screen, Plasma [...] 3:32 PM CDT 11/29/2023 12:07 PM CDT Jeffrey Coyne APRNN.P. LAB MICRO BIOLOGY - BLOOD ORDERABLES Performing Organization Address [facility]/ZIP Co de Phone Number [facility] [address] [place] [address], [place] [facility] in [place] [address] [place] [address] * (ABNORMAL) S-TSH (Thyroid-Stimulating Hormone - Sensitive) (11/28/2023 3:32 PM CDT) TSH, Sensitive 4.5(H) 0.3 - 4.2 mIU/L 11/28/2023 6:15 PM CDT [facility] Blood (Blood, Venous) 11/28/2023 3:32 PM CDT 11/28/2023 5:38 PM CDT Inna Arias APRN, JeffreyN.P. LAB BLOOD ADD-ON Performing Organization Address [facility]/ZIP Co de Phone Number [facility] [address] [place] [address], [place] [facility] in [place] [address] [place] [address] * (ABNORMAL) Lipid Panel (11/28/2023 3:32 PM [...] Inna Arias APRN, C.N.P. LAB BLOOD ADD-ON [facility] [address] [place] [address], [facility] OWAT [facility] [place] [address] [place] [address] * (ABNORMAL) Hemoglobin A1c (11/28/2023 3:32 PM [...] CDT 11/28/2023 5:39 PM CDT Inna Arias APRN CSylviaNSylviaPSylvia LAB BLOOD ADD-ON [facility] [address] [place] [address], [facility] OWAT [facility] [place] [address] [place] [address] * CBC with Differential, Blood (11/28/2023 3:32 PM CDT) Hemoglobin 13.7 11.6 - 15.0 g/dL 11/28/2023 [...] Inna Arias APRN, C.N.P. LAB BLOOD ADD-ON [facility] [address] [place] [address], [facility] [address] [facility] in [place] [address] [place] [address] * (ABNORMAL) Comprehensive Metabolic Panel (11/28/2023 3:32 [...] Inna Arias APRN, C.N.P. LAB BLOOD ADD-ON [facility] [address], [place] [address], [facility] OWAT [facility] [place] [address] [place] [address] documented in this encounter Visit Diagnoses Diagnosis Preventive Gynecological Exam documented in this encounter Additional Health Concerns Assessment Noted Time PHQ-9 Depression Total Score: 4 11/28/19 24 2:28 PM CDT documented as of this encounter Care Teams C Iron Worker Relationship Specialty Start Date End Date Elsewhere, Pcp PCP - General Internal Medicine 08/30/22 documented as of this encounter
--- OUTSIDE RECORDS SUMMARY | 2024-01-02 00:45 | XMS_ITS | Encounter Summary ---
Author Name Unknown Organization [facility] Address [address] [place] [address] Care Team Providers Care Svp Group Director Name Role Phone Elsewhere, Pcp Primary Care Provider Unavailabl e Reason for Referral * Outpatient (Routine) - Authorized Specialty Diagnoses / Procedures Referred By Contac t Referred To Contact Obstetrics and Gynecology Diagnoses Preventive Gynecological Exam Inna Arias APRN, C.N.P. [address] [address] [facility] Region Referral ID Status Reason Start Date Expiration Date V isits Requested Visits Authorized [id number] Authorized 11/28/2023 05/29/2025 1 1 Scheduling Instructions 30 min. Annual Exam * Medication Prior Authorization - Authorized Specialty Diagnoses / Procedures Referred By Contac t Referred To Contact Diagnoses Diabetes Mellitus Type 2 Hyperglycemia (HCC) Inna Arias APRN, C.N.P. [address] [address] Referral ID Status Reason Start Date Expiration Date V isits Requested Visits Authorized [id number] Authorized 10/29/2023 11/27/2024 1 1 Reason for Visit * Reason Comments Well Woman Exam WWEBdustin jenkins since IUD placement * Outpatient (Routine) - Closed Specialty Diagnoses / Procedures Referred By Ja paulino Referred To Contact Obstetrics and Gynecology Diagnoses Preventive Gynecological Exam Inna Arias APRN, C.N.P. [address] [address] [facility] Region Referral ID Status Reason Start Date Expiration Date Visits Re quested Visits Authorized [id number] Closed 11/25/2022 11/24/2025 1 1 Encounter Details Date Type Department Care Team (Latest Contact Info) Description 11/28/2023 2:30 PM CDT Office Visit Department of Obstetrics and Gynecology in [place] [address] [place] [phone] Inna Arias APRN, C.N.P. [address] [phone] Preventive Gynecological Exam (Primary Dx); Diabetes Mellitus Type 2 Hyperglycemia (HCC); Polycystic Ovary Syndrome; Surveillance Intrauterine Device Discharge Disposition: Home or Self Care Social [...] often do you attend chur ch or methodist services? Never 09/09/2021 Do you belong to [...] Average Number of Drinks Not on file Frequency of Binge Drinking Not on file 08/19 Overall Financial Resource Strain (CARDIA) Answe r Date Recorded How hard is it for you to pa y for the very basics like food, housing, medical care, and heating? Not hard at all 09/09/2021 PHQ-2 Answer Date Recorded PHQ-2 Score 0 11/28/2023 [facility] - Occupational Stress [...] place to sleep or slept in a retirement (including now)? No 09/09/2021 Depression Answer Date [...] PM CDT documented as of this encounter Last Filed Vital Signs Vital Sign Reading Time Taken Comments Blood Pressure 130/76 11/28/2023 2:25 PM CDT Pulse 81 11/28/2023 2:25 PM CDT Temperature - - Respiratory Rate - - Oxygen Saturation - - Inhaled Oxygen Concentration - - Weight 151 kg (331 lb 12.7 oz) 11/28/2023 2:25 P M CDT Height 172.3 cm (5' 7.84) 11/28/2023 2:25 PM CD T Body Mass Index 50.69 11/28/2023 2:25 PM CDT documented in this encounter H&P Notes * Inna Arias, SYLWIA, C.N.P. - 11/28/2023 2:30 PM CDT SUBJECTIVE Chief Complaint Patient presents with Well Woman Exam WWE Breakthrough bleeding since IUD placement HISTORY OF PRESENT ILLNESS Michelle is a 33 y.o. female who presents for her Well Woman Exam (WWE/Breakthrough bleedingsince IUD placement). No LMP recorded (lmp unknown). (Menstrual status: Having periods with Intrauterine Device/Implant). Overall, she has been very pleased with her Mirena IUD and although she does experience occasional breakthrough bleeding she really has no concerns in this regard. Notes that she feels reassured by occasional breakthrough bleeding because she feels as if it is doing its job then. She is due for Pap smear today. She has no history of any abnormal Pap smears. She has no concerns surrounding her mood today. She is requesting refill of her semaglutide. She notes that she lost 70-80 lb when she was taking it previously, but her prescription ran out. She would like to restart. She did experience nausea initially, and therefore would like to start at the lowest titration and gradually titrate her way up to the full dosage. OB History 0 Para 0 Term 0 0 AB 0 Living 0 SAB 0 IAB 0 Ectopic 0 Molar 0 Multiple 0 Live Births 0 REVIEW OF SYSTEMS The following systems were negative: Constitutional, Skin, Eyes, ENT, Respiratory, Cardiovascular, Gastrointestinal, Genitourinary, Hematologic, Musculoskeletal, Neurological, Psychiatric The patient's allergies, current medications, problem list, family and social history were reviewedand updated as appropriate. [facility] Last Pap Result Date: 11/28/2023 obtained and pending. No history of abnormal. Depression: 11/28/2023 2:28 PM PHQ9 Score PHQ-9 Total Score (max 27) 4 Immunization History Administered Date(s) Administered 4vHPV (discontinued) 05/31/2010, 08/03/2010, 04/07/2011, 07/23/2014, 07/09/2015 9vHPV 07/09/2015 DTP 12/27/1993 DTaP (Infanrix, Tripedia) 06/10/2009 H1N1 All Forms 10/01/2009 HepB Pediatric/Adolescent 07/12/2000 HepB, Unspecified 06/02/2000, 10/20/2000, 03/20/2001 IPV 12/27/1993 Influenza (IM) Preservative Free 10/01/2009 Influenza, Injectable, Quadrivalent 07/09/2015 Influenza, Unspecified 10/01/2009, 08/03/2011, 07/17/2014, 07/09/2015 MMR 07/18/2001 PPSV23(Discontinued) 07/17/2014 SARS-COV-2 (COVID-19) - MODERNA(Discontinued) 09/09/2021, 11/04/2021 Td, (Adult) Unspecified 07/12/2000 Tdap 06/10/2009, 03/26/2019 OBJECTIVE BP 130/76 (BP Location: Left arm, Patient Position: Sitting, Cuff Size: Large) Pulse 81 Ht 172.3 cm Wt (!) 151 kg LMP (LMP Unknown) Comment: having breakthrough bleeding since IUD81 BMI 50.69 kg/m?? PHYSICAL EXAM General: She is a well-appearing female, in no acute distress. SKIN: Warm, dry and pink. No rashes, lesions or bruising. HEENT: Vision and hearing grossly intact. Lymph Nodes: No cervical, axillary, or inguinal lymphadenopathy. No masses or tenderness. Thyroid: No thyromegaly. No tenderness to palpation. Breasts: Symmetrical. No lesions or dimpling of the skin noted. No dominant masses palpable. Nipples without inversion or drainage. Heart: Regular rate and rhythm. No murmurs, rubs, or gallops. Lungs: Breathing nonlabored. Lungs clear to auscultation bilaterally. No wheezes or rales. Abdomen: Soft, nontender, nondistended. No masses palpable. Pelvis: External genitalia appears healthy and normal. BUS is negative. Upon speculum exam vaginal mucosa appears pink and intact. Cervix is visualized, appears pink and intact. IUD string are not present protruding from the cervical os. Pap smear and GC chlamydia obtained. Upon bimanual exam thereis no cervical motion tenderness, uterus is small mobile and nontender. Adnexa without masses or tenderness. Extremities: Lower extremities are nontender. No edema. Gait normal. Mental: Alert and oriented x3. Affect pleasant. Mood happy. Egyptologist: Tierra Pereira In formal transvaginal ultrasound obtained in order to confirm that IUD is present. Ultrasound confirms that IUD is present and within the proper location within the uterine cavity. IUD strings are noted to be present approximately 1 cm within the cervix. ASSESSMENT / PLAN #1 Preventive Gynecological Exam Overview: Pap smear: 11/28/2023 obtained and pending. [...] - Recommend 1200 mg of calcium daily. Assessment & Plan: Discussed exam findings with patient. I will plan to send her a portal message when I receive her results. Recommend she follow up in 1 year for her annual preventative health exam or sooner if she is any concerns or problems. Orders: - Obstetrics and Gynecology office visit (clinic) - ThinPrep w/HPV Co-Test Screen - Obstetrics and Gynecology office visit (clinic); Future; Expected date: 11/27/2024 - Chlamydia / Gonorrhoeae Amplified RNA - Comprehensive Metabolic Panel; Future; Expected date: 11/28/2023 - CBC with Differential, Blood; Future; Expected date: 11/28/2023 - Hemoglobin A1c; Future; Expected date: 11/28/2023 - Lipid Panel; Future; Expected date: 11/28/2023 - S-TSH (Thyroid-Stimulating Hormone - Sensitive); Future; Expected date: 11/28/2023 - HIV-1/-2 Ag and Ab Screen, Plasma; Future; Expected date: 11/28/2023 - HCV Ab Scrn w/Reflex to HCV PCR, Serum; Future; Expected date: 11/28/2023 #2 Diabetes Mellitus Type 2 Hyperglycemia (HCC) Overview: She has the metabolic syndrome. Her diabetes control is improving with [place] and weight loss. Orders: - semaglutide (OZEMPIC) 0.25 mg or 0.5 mg (2 mg/3 mL) injection; Inject 0.25 mg under the skin every 7 (seven) days. For 4 weeks then increase to 0.5mg every 7 days, Starting 11/28/2023, Until Thu12/28/2023, Normal - Albumin, Random, Urine; Future; Expected date: 11/28/2023 #3 Polycystic Ovary Syndrome Overview: Managing effectively with her Mirena IUD. #4 Surveillance Intrauterine Device Overview: Mirena IUD inserted 12/22/2022. Strings not visible on exam. Ultrasound done to confirm that IUD ispresent and it is. Strings noted to be about 1 cm within the cervix. All questions have been answered and those present are in agreement with this plan. Inna Arias APRN, C.N.P. Patient Education Ready to learn, no apparent learning barriers were identified; learning preferences include listening. Explained diagnosis and treatment plan; patient expressed understanding of the content. documented in this encounter Miscellaneous Notes * Assessment & Plan Note - Inna Arias APRN, C.N.P. - 11/28/2023 2:44 PM CDTAssociated Problem(s): Preventive Gynecological Exam Discussed exam findings with patient. I will plan to send her a portal message when I receive her results. Recommend she follow up in 1 year for her annual preventative health exam or sooner if she is any concerns or problems. documented in this encounter Plan of Treatment Scheduled Orders Name Type Priority Associated Diagnoses Orde r Schedule Albumin, Random, Urine Lab Routine Diabetes Mellitus Type 2 Hyperglycemia (HCC) Expected: 11/28/2023 (Approximate), Expires: 02/27/2025 Scheduled Referrals Name Type Priority Associated Diagnoses Orde r Schedule Obstetrics and Gynecology office visit (clinic) Outpatient Referral Routine Preventive Gynecological Exam Expected: 11/27/2024 (Approximate), Expires: 02/27/2025 documented as of this encounter Procedures Procedure Name Priority Date/Time Associated Diagnosis Comments THINPREP W/HPV CO-TEST SCREEN Routine 11/28/2023 2:59 PM CDT Preventive Gynecological Exam HPV WITH GENOTYPING, PCR, THINPREP Routine 11/28/2023 2:59 PM CDT CHLAMYDIA/GONORRHO EAE AMPLIFIED RNA Routine 11/28/2023 2:59 PM CDT Preventive Gynecological Exam documented in this encounter Results * HCV Ab Scrn w/Reflex to HCV PCR, Serum (11/28/2023 3:32 PM CDT) HCV Ab Screen, S Negative Negative 11/28/19 7:37 PM CDT [facility] Comment: Biotin has been identified by the granite chip terrazzo finisher as a potential interfering substance. Higher concentrations of biotin may be found in multivitamins, hair/nail supplements, and workout supplements. If the result does not match clinical observations, repeat testing after patient refrains from the use of supplements for at least 12 hours. Blood (Blood, Venous) 11/28/2023 3:32 PM CDT 11/28/2023 6:58 PM CDT Narrative [facility] - 11/28/2023 7:37 PM CDT Specimen Information: Specimen ID: [id number] Specimen Type: Blood Specimen Collection Start Date: 11/28/2023 ??3:32 PM Specimen Received Date: 11/28/2023 ??6:58 PM Specimen ID: [id number] Specimen Type: Blood Specimen Collection Start Date: 11/28/2023 ??3:32 PM Specimen Received Date: 11/28/2023 ??7:03 PM Inna Arias APRN, C.N.P. LAB MICRO BIOLOGY - BLOOD ORDERABLES [facility] [address] [place] [address], [facility] in [place] [address] [place] [address] * HIV-1/-2 Ag and Ab Screen, Plasma (11/28/2023 3:32 PM CDT) Pathologist [facility] HIV Ag/Ab Screen, P Negative Negative 11/29/2023 [...] C.N.P. LAB MICRO BIOLOGY - BLOOD ORDERABLES [facility] [address] [place] [address], [facility] in [address] [address] * (ABNORMAL) S-TSH (Thyroid-Stimulating Hormone - Sensitive) (11/28/2023 3:32 PM CDT) Pathologist [facility] TSH, Sensitive 4.5(H) 0.3 - 4.2 mIU/L 11/28/2023 6:15 PM CDT [facility] Blood (Blood, Venous) 11/28/2023 3:32 PM CDT 11/28/2023 5:38 PM CDT Inna Arias APRN C.N.PSylvia LAB BLOOD ADD-ON [facility] [address] [place] [address], [facility] OWAT [facility] [place] [address] [place] [address] * (ABNORMAL) Lipid Panel (11/28/2023 3:32 PM [...] Inna Arias APRN, C.N.P. LAB BLOOD ADD-ON Performing Organization Address [facility]/ZIP Co de Phone Number [facility] [address] [place] [address], [place] [facility] [place] [address] [place] [address] * (ABNORMAL) Hemoglobin A1c (11/28/2023 3:32 PM [...] 11/28/2023 5:39 PM CDT Inna Arias APRN, C.N.P. LAB BLOOD ADD-ON Performing Organization Address [facility] Co de Phone Number [facility] [address] [place] [address], [place] OW[facility] [place] [address] [place] [address] * CBC with Differential, Blood (11/28/2023 3:32 [...] Inna Arias APRN, C.N.P. LAB BLOOD ADD-ON [facility] [place] [facility] [address] [place] [address], [facility] [address] [facility] [place] [address] [place] [address] * (ABNORMAL) Comprehensive Metabolic Panel (11/28/2023 3:32 [...] Inna Arias APRN, C.N.P. LAB BLOOD ADD-ON [facility] [address] [place] [address], [place] OW[facility] [place] [address] [place] [address] * HPV with Genotyping, PCR, ThinPrep (11/28/2023 [...] correlated with patient's history, clinical presentation, and RISK CONTROL PRODUCT LIABILITY DIRECTOR cytology report. 11/28/2023 2:59 PM CDT 11/29/2023 6:40 AM CDT Inna Arias APRN, C.N.P. LAB MICRO BIOLOGY - GENERAL ORDERABLES [facility] [address] [place] [address], [facility] [address] [place] [address] * Chlamydia / Gonorrhoeae Amplified RNA (11/28/2023 [...] C.N.P. LAB MICRO BIOLOGY - GENERAL ORDERABLES [facility] [address] [place] [address], [facility] [address] [facility] [address] [place] [address] * ThinPrep w/HPV Co-Test Screen (11/28/2023 2:59 [...] APRN, C.N.P. LAB PAP P ATHDX ORDERABLES [facility] [address] [place] [address], [place] [facility] [address] [address] documented in this encounter Visit Diagnoses Diagnosis Preventive Gynecological Exam- Primary Diabetes Mellitus Type 2 Hyperglycemia (HCC) Polycystic Ovary Syndrome Surveillance Intrauterine Device Preventive Gynecological Exam documented in this encounter Additional Health Concerns Assessment Noted Time PHQ-9 Depression Total Score: 4 11/28/19 24 2:28 PM CDT documented as of this encounter Care Teams Svp Group Director Relationship Specialty Start Date End Date Elsewhere, Pcp PCP - General Internal Medicine 08/30/22 documented as of this encounter
--- OUTSIDE RECORDS SUMMARY | 2024-01-02 00:45 | XMS_ITS | Clinical Summary ---
Author Name Unknown Organization [facility] Address [address] [place] [address] Care Team Providers Care Cigarette Book Maker Name Role Phone Elsewhere, Pcp Primary Care Provider Unavailabl e Source Comments Patient records contain information from all sites at [facility]. For routine questions regarding patient records, call [phone] during business hours, M-F 8:00 AM - 5:00 PM Central Time. Record requests for emergency care only can be directed to [phone] at any time.[facility] Allergies Active Allergy Reactions Criticality Noted Date [...] each (1 Injection total) daily. 100 each 01/07/2022 Active blood-glucose meter,continuous misc Use to monitor blood glucose (DX: E11.65) 1 each 01/07/2022 Active blood-glucose sensor device Change sensor every 10 days (DX: E11.65) 9 each 01/07/2022 Active blood-glucose transmitter device Change transmitter [...] day before breakfast and dinner. 360 tablet 11/11/2022 Active buPROPion XL (WELLBUTRIN XL) 150 [...] insertion for endometrial protection. Elevated Blood Pressure 03/27/202008/19 Overview: Blood pressure is normal today and [...] Sleep Obstructive 09/30/201308/19 Secondary Amenorrhea 11/24/2006 019 Encounters Date Type Department Care Team Description 11/30/2023 Orders Only Department of Obstetrics and Gynecology in [address] [id number] Inna Arias, PACKING AND STAMPING MACHINE OPERATOR, C.N.P. Diabetes Mellitus Type 2 Hyperglycemia (HCC) (Primary Dx); Hypothyroidism 11/28/2023 3:17 PM CDT - 11/28/2023 11:59 PM CDT Hospital Encounter Department of Laboratory Medicine in [place], [place] [address] [place] [address] Inna Arias APRN, C.N.P. Preventive Gynecological Exam Discharge Disposition: Home or Self Care 11/28/2023 2:30 PM CDT Office Visit Department of Obstetrics and Gynecology in [place], [place] [address] [place] [address] Inna Arias APRN, C.N.P. Preventive Gynecological Exam (Primary Dx); Diabetes Mellitus Type 2 Hyperglycemia (HCC); Polycystic Ovary Syndrome; Surveillance Intrauterine Device Discharge Disposition: Home or Self Care from Last 3 Months Immunizations Name Administration Dates Next Due 4vHPV (discontinued) 07/09/2015,07/23/20 14,04/07/2011,2009,05/31/2010 9vHPV 07/09/2015 DTP 12/27/1993 DTaP (Infanrix, [employer]edia) 06/10/2009 H1N1 All Forms 10/01/2009 HepB Pediatric/Adolescent 07/12/2000 HepB, Unspecified 03/20/2001,10/20/2000,06/02/20 00 IPV 12/27/1993 Influenza (IM) Preservative Free 10/01/2009 Influenza, Injectable, Quadrivalent 07/09/2015 Influenza, Unspecified 07/09/2015,2013,08/03/2011,2009 MMR 07/18/2001 PPSV23(Discontinued) 07/17/2014 SARS-COV-2 (COVID-19) - MODERNA(Discontinued) 11/04/2021,09/09/2021 Td, (Adult) Unspecified 07/12/2000 Tdap 03/26/2019,06/10/2009 Family History Medical History Relation Name Comments Diabetes Father Heart disease Father Hypertension Father DM - Diabetes mellitus Maternal Grandfather Heart disease Maternal Grandfather Hypertension Maternal Grandmother Hyperlipidemia Mother Hypertension Mother Cancer Paternal Grandmother Relation Name Status Comments Father Maternal Grandfather Maternal Grandmother Alive Mother Alive Paternal Grandmother Social History Tobacco Use Types Packs/Day Years [...] often do you attend chur ch or spiritism services? Never 09/09/2021 Do you belong to [...] Answer Date Recorded PHQ-2 Score 0 11/28/2023 [facility] [place] [facility] Occupat ional Health - Occupational Stress [...] money to buy more. Never true 09/09/20 Within the past 12 months, t he [...] CDT Oxygen Saturation 98% 09/27/2021 4:12 PM WORKPLACE TRAINER AND ASSESSOR Inhaled Oxygen Concentration - - Weight 151 kg (331 lb 12.7 oz) 11/28/2023 2:25 P M CDT Height 172.3 cm (5' 7.84) 11/28/2023 2:25 PM CD T Body Mass Index 50.69 11/28/2023 2:25 PM CDT Plan of Treatment Health Maintenance Due Date Last Done Comments Zoster Vaccines (1 of 2) 01/09/2008 Pneumococcal vaccine (0-64 y ears) (2 of 2 - PCV) 07/17/2015 07/17/2014 Diabetes Education 02/04/2023 02/04/2022, 0 01/01/2021, 11/13/2019, Additional history exists Diabetic Office Visit with F oot Exam 02/04/2023 02/04/2022, 01/01/2021, 11/13/2019, Additional history exists COVID-19 Vaccine (3 - 2022-2 4 season) 2023 11/04/2021, 09/09/2021 Influenza Vaccine (#1) 2023 5, 07/09/2015, 07/17/2014, Additional history exists Urine Albumin 11/11/2023 11/11/2022, 08/18, 11/11/2019, Additional history exists Dilated Eye Exam 12/07/2023 12/06/2022 (Per formed elsewhere), 07/17/2014 Hemoglobin A1C 02/28/2024 11/28/2023, 10/20, 02/04/2022, Additional history exists Depression Monitoring (PHQ-9) 03/29/2024 11/28/2023 Creatinine Level (Kidney Fun ction Test) 11/27/2024 11/28/2023, 11/11/2022, 08/31/2021, Additional history exists Lipid (Cholesterol) Screening 11/27/2024, 11/11/2022, 09/09/2021, Additional history exists Office Visit for Blood Press ure Check / Re-check 11/27/2024 11/28/2023 Cervical Cancer Screening 11/27/20282023, 11/28/2023, 03/26/2019, Additional history exists DTaP,Tdap,and Td Vaccines (6 - Td or Tdap) 03/26/2029 03/26/2019, 06/10/2009, 06/10/2009, Additional history exists Hepatitis B Vaccines Completed 03/20/2001, 10/20/2000, 07/12/2000, Additional history exists HPV Vaccines Completed 07/09/2015, 06/19, 07/23/2014, Additional history exists HIV Screening Completed 11/28/2023 Hepatitis C Screening Completed 11/28/2023 Procedures Procedure Name Priority Date/Time Associated Diagnosis [...] RANDOM, U Routine 11/11/2022 3: 25 PM WORKPLACE TRAINER AND ASSESSOR Diabetes Mellitus Type 2 Hyperglycemia (HCC) Hyperlipidemia Hypothyroidism from Last 3 Months or Most Recently Relevant to Health Maintenance Results * HIV-1/-2 Ag and Ab Screen, Plasma (11/28/2023 3:32 PM CDT) Pathologist [facility] HIV Ag/Ab Screen, P Negative Negative 11/29/2023 [...] CDT 11/29/2023 12:07 PM CDT Jeffrey Coyne APRNNSylviaPSylvia LAB MICRO BIOLOGY - BLOOD ORDERABLES [facility] [address] [place] [address], [facility] in [address] [address] * (ABNORMAL) Lipid Panel (11/28/2023 3:32 PM [...] 3:32 PM CDT 11/28/2023 5:38 PM CDT Jeffrey Coyne APRNN.P. LAB BLOOD ADD-ON Performing Organization Address City/[facility]/ZIP Co de Phone Number [facility] [address] [place] [address], [facility] OWAT [facility] [place] [address] [place] [address] * HCV Ab Scrn w/Reflex to HCV PCR, Serum (11/28/2023 3:32 PM CDT) HCV Ab Screen, S Negative Negative 11/28/19 7:37 PM CDT MKTO Comment: Biotin has been identified by the supervisor instrument mechanics as a potential interfering substance. Higher concentrations of biotin may be found in multivitamins, hair/nail supplements, and workout supplements. If the result does not match clinical observations, repeat testing after patient refrains from the use of supplements for at least 12 hours. Blood (Blood, Venous) 11/28/2023 3:32 PM CDT 11/28/2023 6:58 PM CDT Narrative [facility] - 11/28/2023 7:37 PM CDT Specimen Information: Specimen ID: [id number] Specimen Type: Blood Specimen Collection Start Date: 11/28/2023 ??3:32 PM Specimen Received Date: 11/28/2023 ??6:58 PM Specimen ID: [id number] Specimen Type: Blood Specimen Collection Start Date: 11/28/2023 ??3:32 PM Specimen Received Date: 11/28/2023 ??7:03 PM Jeffrey Coyne APRNN.P. LAB MICRO BIOLOGY - BLOOD ORDERABLES Performing Organization Address City/[facility]/ZIP Co de Phone Number [facility] [address] [place] [address], [facility] MKTO [facility] [place] [address] [place] [address] * CBC with Differential, Blood (11/28/2023 3:32 [...] Inna Arias APRN, C.N.P. LAB BLOOD ADD-ON [facility] [address] [place] [address], [facility] FB60 [facility] [place] [address] [place] [address] * (ABNORMAL) S-TSH (Thyroid-Stimulating Hormone - Sensitive) (11/28/2023 3:32 PM CDT) Pathologist [facility] TSH, Sensitive 4.5(H) 0.3 - 4.2 mIU/L 11/28/2023 6:15 PM CDT OW Blood (Blood, Venous) 11/28/2023 3:32 PM CDT 11/28/2023 5:38 PM CDT Inna Arias APRN, C.N.P. LAB BLOOD ADD-ON Performing Organization Address [facility]/ZIP Co de Phone Number [facility] [address] [place] [address], [facility] [place] [address] [place] [address] * (ABNORMAL) Hemoglobin A1c (11/28/2023 3:32 PM CDT) [facility] Hemoglobin A1c, B 10.3(H) 4.2 - 5.6 % 11/28/2023 5:59 PM CDT OW Comment: Hemoglobin A1c values greater than or equal to 6.5 percent are diagnostic for diabetes mellitus. ??Diagnosis should be confirmed by repeat testing. ??In diabetic patients, HbA1c goals should be discussed with healthcare provider. Blood (Blood, Venous) 11/28/2023 3:32 PM CDT 11/28/2023 5:39 PM CDT Inna Arias APRN, C.N.P. LAB BLOOD ADD-ON Performing Organization Address City/[facility]/ZIP Co de Phone Number [facility] [address] [place] [address], [place] [facility] [place] [address] [place] [address] * (ABNORMAL) Comprehensive Metabolic Panel (11/28/2023 3:32 [...] 11/28/2023 5:38 PM CDT Inna Arias APRN C.N.P. LAB BLOOD ADD-ON [facility] [address] [place] [address], [place] [employer] [facility] [place] [address] [place] [address] * ThinPrep w/HPV Co-Test Screen (11/28/2023 2:59 PM CDT) 12/04/2023 2:32 PM CDT [facility] Report electronically signed by MB. Pavithra Ch.B. I verify that I have examined [...] APRN, C.N.P. LAB PAP P ATHDX ORDERABLES [facility] [address] [place] [address], [facility] [address] [address] * HPV with Genotyping, PCR, ThinPrep (11/28/2023 [...] correlated with patient's history, clinical presentation, and FASHION STYLIST cytology report. 11/28/2023 2:59 PM CDT 11/29/2023 6:40 AM CDT Inna Arias APRN, C.N.P. LAB MICRO BIOLOGY - GENERAL ORDERABLES Performing Organization Address City/[facility]/ZIP Co de Phone Number [facility] [address] [place] [address], [facility] MKTO [address] [place] [address] * Chlamydia / Gonorrhoeae Amplified RNA (11/28/2023 2:59 PM CDT) Source Swab, Vagina 11/29/2023 7:12 PM CDT MKTO Chlamydia trachomatis amplified RNA Negative Negative 11/29/2023 7:12 PM CDT MKTO Source Swab, Vagina 11/29/2023 7:12 PM CDT MKTO Neisseria gonorrhoeae amplified RNA Negative Negative 11/29/2023 7:12 PM CDT MKTO Swab (Vagina) 11/28/2023 2:5 9 PM CDT 11/29/2023 10:11 AM CDT Jeffrey Coyne APRNNHilaria LAB MICRO BIOLOGY - GENERAL ORDERABLES [facility] [address] [place] [address], [place] [facility] [address] [facility] [address] [place] [address] * Albumin, Random, Urine (11/11/2022 3:25 PM WORKPLACE TRAINER AND ASSESSOR) Microalbumin <12.0 mg/L 11/12/2022 10:12 AM WORKPLACE TRAINER AND ASSESSOR OWAT Comment:If clinically indica dora, contact the lab for additional testing. Creatinine 137 mg/dL 11/12/2022 10:12 AM WORKPLACE TRAINER AND ASSESSOR OWAT Albumin/Creatinine Ratio <9 <25 mg/g 11/12/2022 10:12 AM WORKPLACE TRAINER AND ASSESSOR OWAT Comment: This ratio may not correspond with the reference range because one or both of the values used to calculate the ratio was above or below the quantification limits. Urine (Urine, Voided) 11/11/2022 3:25 PM WORKPLACE TRAINER AND ASSESSOR 11/12/2022 9:34 AM WORKPLACE TRAINER AND ASSESSOR Pepe Caro P.A.-C., P.A. LAB URIN E ORDERABLES Performing Organization Address City/[facility] Co de Phone Number [facility] [address] [place] [address], [place] [employer] [facility] [place] [address] [place] [address] from Last 3 Months or Most Recently Relevant to Health Maintenance Care Teams Cigarette Book Maker Relationship Specialty Start Date End Date Elsewhere, Pcp PCP - General Internal Medicine 08/30/22
== END 2024-01-02 00:45 | disposition home or self-care (01) ==
LOC: ED 01-02 00:41
PROVIDERS: Emergency Provider Family Medicine
DX: M54.16 Radiculopathy, lumbar region (principal)
CPT/HCPCS: 99283; 99284

== ENCOUNTER 2025-04-23 14:06 | Emergency (ER) | payer OTHER, SELFPAY ==
--- OUTSIDE RECORDS SUMMARY | 2025-03-11 08:30 | XMS_ITS ---
Demographics Address [address] [place] [address] [birth year] [place] [address] Mobile Email Address Preferred Language en Marital Status Unknown Gnosticist Affiliation Unknown Race White Ethnic Group Not or Lati no Author Organization [facility] Address [address] [place] [address] [address] [place] [address] Care Team Providers Care Conduit Helper Name Role Phone Pepe Caro Primary Care Provider Unavailab Tk Chavez Unavailable [phone] Ximena Deshpande Unavailable Unavailable Sadia Sanford Unavailable [phone] REASON FOR VISIT WC Right Neck DOI 09/24/2022 Encounters Encounter Location Date Provider Diagnosis [facility] [address] [place] [address] 03/11/2025 Sadia Sanford Cervicalgia M54.2 ; Segmental and somatic dysfunction of cervical region M99.01 ; Dorsalgia, unspecified M54.9 and Fusion of spine, cervical region M43.22 Assessments Encounter Date Diagnosis (ICD Code) Assessment Notes Treatment Notes Treatment Clinical Notes Section Notes 03/11/2025 Cervicalgia (ICD-10 - M54.2) 03/11/2025 Segmental and somatic dysfunction of cervical region (ICD-10 - M99.01) 03/11/2025 Dorsalgia, unspecified (ICD-10 - M54.9) 03/11/2025 Fusion of spine, cervical region (ICD-10 - M43.22) Plan Of Treatment Next Appt Details Provider Name:Patel Arias , 05/15/2025 03:15:00 PM, [address], [place], [address], Progress Notes * Michelle MINOR LDOB: [birth year] (35 yo F)Acc No.[id number]:03/11/2025 Patient: Michelle CONTEH Provider: Juany Sanford DPT :1990 A ge:35 Y S ex:Female Date:03/11/2025 Phone: Address:[address], [address] [birth year][address], [place], [place]-[address] Pcp:Pepe Caro Subjective: * Chief Complaints: * W C Right Neck DOI 09/24/2022 * HPI: * Therapy Visit Status: Session Data T jake's Session Date 0 03/11/2025 completed 27 visits, ending in December 2023 T herapy Episode Status D ischarged or Discharge Plan < 2 visits T herapy Sessions Completed (#) 3 8 *has 10 more visits approved starting 01/08 A uthorized PT/OT Visits 3 8 Expiration Date: 07/10/25 P T Goal Review Date 0 03/11/2025 O T Goal Review Date 0 01/10/2025 T herapy Visit Subjective: Doing okay since last session. [facility] team [facility] is not happy with her injection results, they are considering TPR injections. She also going to be doing a trial for SCS at end of March, 04/17. If nothing else works, she may be looking at another surgery to fix the chronic T7 disc herniation. D/C today from this POC. Objective: * Vitals: * Physical Examination: C ervical Extension Positioning & Goals: Positioning S eat Height 3 31 T DC 6 0 C B 1 .6 O ther F ootstool P rotocol F usion PH 3: (6mo) 0-108, Max 192 (F), 240 (M) N otes D oes not like to use shoulder straps Goals L ow Goal Female (Max 192) 1 92 H igh Goal Female (Max 222) 1 92 C ervical Extension Exercise Performance: Exercise T orque (in-lbs) 1 92 Max PH 3 weight = 192 E xtension ROM (0) 0 Fusion PH 3: (6mo) 0-108 F lexion ROM (126) 1 08 R epetitions 5 0 *allowed for higher reps d/t low fatigue R PE (0-10) 5 L ast Rep Status M et Repetition Goal E xercise Plan 2 x week C ervical Rotation Positioning & Goals: Positioning S eat Height 2 36 B ack Pad N o back pad O ther F oot Stool P rotocol F usion PH 3: (6mo) Start 24-24 to Max 54-54, Max 60 (F), Max 90 (M) Goals L ow Goal Female (Max 60) 6 0 H igh Goal Female (Max 80) 6 0 C ervical Rotation Exercise Performance: Exercise T orque (in-lbs) 6 0 Max PH 3 load = 60 in lbs R otation Left (60-72) 5 4 Fusion PH 3: (6mo) Start 24-24 to Max 54-54, Max 60 (F), Max 90 (M) R otation Right (60-72) 5 4 had 66-66 AROM and set to 54-54 with load L eft Repetitions 3 0 R ight Repetitions 3 0 R PE (0-10) 5 L ast Rep Status M et Repetition Goal E xercise Plan 2 x week C ORE Neck Sidebend: Positioning S eat Position 4 T runk Support 1 H ead Pad 4 O ther F ootstools Goals L ow Goal Female (Max 30) 3 0 H igh Goal Female (Max 50) 5 0 Exercise Performance W eight: 0.8(CEXT / 3.5-5.0) 5 0 L eft Repetitions 2 0 R ight Repetitions 2 0 R PE (0-10) 7 L ast Rep Status M et Exertion Goal, Met Repetition Goal E xercise Plan S upervised 2 x wk I sotonic Exercise Machine Summary: Exercise Summary M aintained same loads for CE & CR, she is at top weights. Increased load for CSB, now at top weight for this.. Billing [id number] (Therapeutic Exercise) Direct 1:1 Time= 25 mins. Therapeutic Interventions: * Therapeutic Interventions: 1 . * Home Exercise List: Stretches & Release Neck Stretching HEP : Cervical Flexion, Cervical Extension, Cervical Sidebend, Cervical Rotation, Upper Trapezius, Levator Scapulae Gmdfs-Tevv-Lbrusaoz Stretching HEP : Pectorals- Supine, Trunk Rotation - Supine, Pectorals- Doorway, thoracic ex over towel or foam roller, segmental bridge with exhale on lowering 2 . * Home Exercise List: Strength & Function Mid-Back Strength HEP : Posture A, Band Row, Band Pull Back, Pallof Press, Wall Pushups with straight arm push up, Reverse Wall Push-Up Low Back & Core Strength HEP : Lower Abdominal L1, Alt Arm & Leg Lift 4-point Functional Strength HEP : Biceps curl with overhead press 8#,Functional squat 10# ,Supported Row 8# ,2 position arm lift 3# ,Bench press 8# ,Deadlift 8#,Triceps extension 4# 3 . M anual and Neuromotor Therapy Treatment Details : Contraindications screened and patient counseled on expected outcomes of treatment. The following skilled techniques were performed: pt in seated, used GT-3 and GT-4 to bilateral cerv exts, cerv paraspinals, SOs UT and LS. Also used orange massage tool for TPR, able to find various trigger points along L-sided UT and LS. Noted relief afterwards. All manual therapy used to assist with facilitating normal movement pattern, decreasing nervous system sensitivity and assisting with pain reduction, as well as decreased mm tension and increased AROM Billing : [id number] (Manual Therapy) Direct 1:1 Time= 30 mins Assessment: * Therapy Assessment and Plan: 1. T herapy Session Assessment Summary : See D/C summary 2. * Therapy Session Plan Plan Details : D/C to HEP * Assessment: 1. C ervicalgia - M54.2 (Primary) 2 . S egmental and somatic dysfunction of cervical region - M99.01 3 . D orsalgia, unspecified - M54.9 4 . F usion of spine, cervical region - M43.22 Plan: * Procedure Codes: 9 7110 Therapeutic Exercise PT, Units: 2.00 , Modifiers: GP , Time (Mins): 2612246 Neuromuscular Reeducation PT, Units: 2.00 , Modifiers: GP , Time (Mins): 054327 * Preventive Medicine: Therapy Progress Review: P rogress Status Progress Status Update Date 0 03/11/2025 Therapy Progress Status G ood Total Perceived Recovery (0-10): 0= no improvement, 10= total and complete recovery Patient Reports = 7 Cervical Range of Motion W FL: Within Functional Limits For PH3 post surgical Cervical Strength W ithin Goal Range Functional Capacity Tests (PT) F unctional Test Goals Met PT Outcomes Met R ECOVERY: > 7/10 perceived recovery score reported, MUSCULAR FUNCTION: WFL, PAIN KNOWLEDGE: competency in pain management behaviors, LIFESTYLE HABITS: activity, nutrition, sleep practices addressed Therapy Frequency Recommendation D ischarge Anticipated Discharge at (#) Session?30+ Sessions Care Coordination Needs N o Concerns P T Discharge Summary C vannessa has been seen for 38 therapy visits to address her chronic neck pain after her involvement in a work-place injury. She has been seen post cervical surgery, C5- 7 ACDF (DOS:04/24/24) performed by performed by Dr. Acosta of [facility] on 04/24/2024. Throughout her recovery, she has demonstrated improvements in cervical mobility, strength and endurance. She was hitting strides in her recovery but as of late, her thoracic region which is related to her original work injury has been increasing her pain. Her HAs and thoracic pain have worsened over the past few weeks, she has also been endorsing radicular pain along the T7 dermatome. She is working with her other care team to figure out the next steps including TPR injections a possible SCS trial. She rates her overall recovery 7/10 on TPR and she reached top loads for CE & CR MedX. She met 3 out of 3 initial goals set at PT eval. Her recovery has been steady and at this time it is appropriate to D/C from therapy to continue to focus on recovery independently.. Physical Therapy Goals: P T Goal 1 L brayden Term Goal (8-12 weeks): Pt will reduce frequency and intensity of headaches by improving DNF strength and endurance. Initial test was 9 sec, 1st follow up was 17 sec.CURRENT: 16 sec, pt has been more sore leading up to second follow up testing(Goal Review 11/28): Pt performed DNF test at 21 secs today, had improved motor control/coordination. Her HAs have also improved, maybe gets 2-3/wk which is an improvement. CONTINUE GOAL.01/10/25: headaches have improved over the past couple weeks, was getting daily now 1 every other day.(D/C GOAL 03/11): Pt reports that her HAs have been slowly returning a few times a week. Not as consistent but notices them when she overdoes it. Performs DNF test at 30 secs. GOAL MET.. P T Goal 2 L brayden Term Goal (8-12 weeks): Pt will restore cervical strength to within the goal range measured in the Physical Capacity section of documentation so patient may have supporting spinal strength and endurance in order to engage in physical activity with strong support and to be able to return to work at full capacity.CURRENT: Has not returned to work as her restriction are too high per her work, she has reached goal weight and ROM in phase 2 but will be able to progress to phase 3 in 2 weeks Continuing Goal,(Goal Review 11/28): She is not returned to work due to her restrictions are too much and she is not back yet. She is now within PH 3 and reaching towards her goals for MedX. CONTINUE GOAL.01/10/25: continues to gain neck strength through her therapy program, nearing goals in MedX, continue goal.(D/C GOAL 03/11): She is at her top goals for both CE & CR MedX for within her PH3 protocol. Her top weights for CR are 60 in lbs and for CE 192 in lbs. GOAL MET.. P T Goal 3 L brayden Term Goal (8-12 weeks): Pt will demonstrate functional ROM improvements in both cervical and thoracic regions to be able to perform daily tasks, safely drive her car to be able to check blind spots and have fewer restrictions for her daily life and to be able to return to work.CURRENT: hasn't returned to work get due to restrictions, pt reports feeling about 40% of her normal/baseline capacity(Goal Review 11/28): Has not returned to work yet. Her ROM is WFL for PH 3. CONTINUE GOAL.01/10/25: still difficult to turn to check blind spot but has returned to work recently, continue goal.(D/C GOAL 03/11): Within ROM limits for PH 3 protocol, she has not fully returned to work. For CR she is at 54-54 degrees and CE is 0-108 degrees. GOAL MET.. * Billing Information: * Visit Code: * Procedure Codes: 70757 Therapeutic Exercise PT. Units: 2.00. Time (Mins):25Modifiers: GP 27953 Neuromuscular Reeducation PT. Units: 2.00. Time (Mins):30Modifiers: GP * Sign off status: Completed true * Provider: Juany Sanford DPT Date: 03/11/2025 Generated for Oscar henriquez/Kel/Edinsonitting on: 04/23/2025 02:12 PM CDT History and Physical Notes * HPI (History of Present Illness) Category Sub-Category Detail Notes Category Not es Therapy Visit Subjective Doing okay since last session. Her team at [facility] is not happy with her injection results, they are considering TPR injections. She also going to be doing a trial for SCS at end of 04/17. If nothing else works, she may be looking at another surgery to fix the chronic T7 disc herniation. D/C today from this POC. *Therapy Visit Status Session Data Today's Session Date: 03/11/2025 completed 27 visits, ending in December 2023 Therapy Episode Status: Disc harged or Discharge Plan < 2 visits Therapy Sessions Completed (#): 38 *has 10 more visits approved starting 01/08 Authorized PT/OT Visits: 38 Expiration D ate: 07/10/25 PT Goal Review Date: 03/11/2025 OT Goal Review Date: 01/10/2025 Physical Examination Category Sub-Category Detail Notes Section Note s Isotonic Exercise Machine Summary Billing [id number] (Therapeutic Exercise) Direct 1:1 Time= 25 mins Exercise Summary Maintained same load s for CE & CR, she is at top weights. Increased load for CSB, now at top weight for this. Cervical Extension Positioning & Goals Positioning Seat He ight: 331 TDC: 60 CB: 1.6 Other: Footstool Protocol: Fusion PH 3: (6mo) 0 -108, Max 192 (F), 240 (M) Notes: Does not like to use shoulder straps Goals Low Goal Female (Max 192): 192 High Goal Female (Max 222): 192 Cervical Extension Exercise Performance Exercise Torque (in-lbs): 192 Max PH 3 weight = 192 Extension ROM (0): 0 Fusion PH 3: (6mo) 0-108 Flexion ROM (126): 108 Repetitions: 50 *allowed for higher reps d/t low fatigue RPE (0-10): 5 Last Rep Status: Met Repetition Goal Exercise Plan: 2 x week Cervical Rotation Positioning & Goals Positioning Seat Hei ght: 236 Back Pad: No back pad Other: Foot Stool Protocol: Fusion PH 3: (6mo) S tart 24-24 to Max 54-54, Max 60 (F), Max 90 (M) Goals Low Goal Female (Max 60): 60 High Goal Female (Max 80): 60 Cervical Rotation Exercise Performance Exercise Torque (in-lbs): 60 Max PH 3 load = 60 i n lbs Rotation Left (60-72): 54 Fusion PH 3: ( 6mo) Start 24-24 to Max 54-54, Max 60 (F), Max 90 (M) Rotation Right (60-72): 54 had 66-66 KALIE M and set to 54-54 with load Left Repetitions: 30 Right Repetitions: 30 RPE (0-10): 5 Last Rep Status: Met Repetition Goal Exercise Plan: 2 x week CORE Neck Sidebend Positioning Seat Position: 4 Trunk Support: 1 Head Pad: 4 Other: Footstools Goals Low Goal Female (Max 30): 30 High Goal Female (Max 50): 50 Exercise Performance Weight: 0.8(CEXT / 3.5-5.0) : 50 Left Repetitions: 20 Right Repetitions: 20 RPE (0-10): 7 Last Rep Status: Met Exertion Goal, Met Repetition Goal Exercise Plan: Supervised 2 x wk
--- OUTSIDE RECORDS SUMMARY | 2025-04-03 10:15 | XMS_ITS ---
Demographics Address [address] [facility] [address] [place] [address] Mobile Email Address Preferred Language en Marital Status Unknown Zoroastrianism Affiliation Unknown Race White Ethnic Group Not or Lati no Author Organization [facility] Address [address] [place] [address] [address] [place] [address] Care Team Providers Care Upsetter Helper Name Role Phone Pepe Caro Primary Care Provider Unavailab Tk Chavez Unavailable [phone] Ximena Deshpande Unavailable Unavailable Patel Arias Unavailable [phone] Allergies Allergen (clinical drug ingredient) Drug/Non Drug Allergy documented on EMR Reaction Allergy Type Onset Date Status Adhesive rash, itching Allergy Active hydrocodone Hydrocodone rash, itching Drug Allergy Active Tape rash, itching Allergy Active Reason For Referral Reason I am recommending wo rker's compensation insurance to help support the patient with a six month gym membership. I recommend a gym with a pool facility as the patient is using swimming as a form of exercise as I highly endorse. Diagnosis 1 Other chronic pain ( G89.29) Referral Organization [facility] Referring Provider First Name Patel Referring Provider Last Name Hugo Referring Provider Speciality Occupation al Medicine Referred Provider Specialty Miscellaneou s General Notes Ester Bender 2024 04:04:11 PM >Order printed for patient and QRC. Referral Priority Routine REASON FOR VISIT WC Right Neck DOI 09/24/2022 Medications Medication SIG (Take, Route, Frequency, Duration) Notes Start Date End Date Status glipiZIDE 5 MG Oral; Duration: 90 Days Active TENS/NMES Unit Use as directed; Duration: 1 days Contact patient at [phone] 09/12/2024 Active Naproxen 500 MG 1 tablet with food o r milk as needed Orally every 8 hrs; Duration: 30 days Active Ozempic (0.25 or 0.5 MG/DOSE) 2 MG/3ML 0.5mg Subcutaneous once a week Active Levothyroxine Sodium 88 MCG Oral; Duration: 90 Days Active Topamax 25 MG 2 tablet Orally Twic e a day; Duration: 30 days Active Baclofen 10 MG 1 tablet as needed Orally Three times a day; Duration: 30 days Active Methocarbamol 500 MG 1 tablet Orally onc e a day; Duration: 30 days 10/24/2023 Active Social History Tobacco Use: Social History Observation Description Date Details (start date - stop date) Never Smoker NA - NA Tobacco Use/Smoking: Question Answer Notes Are you a nonsmoker AUDIT-C (Standard) Question Answer Notes Did you have a drink containing alcohol in the p ast year? No Points 0 Interpretation Negative Problems Problem Type SNOMED Code ICD Code Onset Dates Problem Status W/U Status Risk Notes Problem Pain in thoracic spine (729385157) Pain in thoracic spine (M54.6) Active confirmed Vital Signs Height 67 in 04/03/2025 Blood pressure systolic 134 mm Hg 04/03/20 25 Blood pressure diastolic 82 mm Hg 025 Encounters Encounter Location Date Provider Diagnosis [facility] [address] [place] [address] 04/03/2025 Patel Arias Fusion of spine, cervical region M43.22 ; Pain in thoracic spine M54.6 ; Cervicalgia M54.2 ; Headache, unspecified R51.9 ; Dorsalgia, unspecified M54.9 and Other cervical disc degeneration, unspecified cervical region M50.30 Assessments Encounter Date Diagnosis (ICD Code) Assessment Notes Treatment Notes Treatment Clinical Notes Section Notes 04/03/2025 Fusion of spine, cervical region (ICD-10 - M43.22) See the HPI for Dr. Tejeda's recommended plans going forward including CT of the cervical spine on 04/07/2025, and OV with Dr. Tejeda on 04/17/2025. TPI's and SCS trial have been discussed. I have been managing workability. Her most recent note from 02/27/2025 includes: A. Four hour workday. B. Working up to four days per week. C. 15 lbs lifting restriction. D. No overhead work. E. Avoid frequent forward bending at the waist or prolonged stooping forward at the waist. Today's evaluation occupied a full 30 minutes altogether including time spent preparing to see the patient and providing this documentation. Prior to seeing the patient I did review outside medical records including imaging, office visit notes, exercise data, therapy notes, and consultation notes. In addition, we accommodated a worker/QRC/phys ician meeting. We also provided the worker and their employer with a detailed work ability letter. 04/03/2025 Pain in thoracic spine (ICD-10 - M54.6) See the HPI for Dr. Tejeda's recommended plans going forward including CT of the cervical spine on 04/07/2025, and OV with Dr. Tejeda on 04/17/2025. TPI's and SCS trial have been discussed. I have been managing workability. Her most recent note from 02/27/2025 includes: A. Four hour workday. B. Working up to four days per week. C. 15 lbs lifting restriction. D. No overhead work. E. Avoid frequent forward bending at the waist or prolonged stooping forward at the waist. Today's evaluation occupied a full 30 minutes altogether including time spent preparing to see the patient and providing this documentation. Prior to seeing the patient I did review outside medical records including imaging, office visit notes, exercise data, therapy notes, and consultation notes. In addition, we accommodated a worker/QRC/phys ician meeting. We also provided the worker and their employer with a detailed work ability letter. 04/03/2025 Cervicalgia (ICD-10 - M54.2) See the HPI for Dr. Tejeda's recommended plans going forward including CT of the cervical spine on 04/07/2025, and OV with Dr. Tejeda on 04/17/2025. TPI's and SCS trial have been discussed. I have been managing workability. Her most recent note from 02/27/2025 includes: A. Four hour workday. B. Working up to four days per week. C. 15 lbs lifting restriction. D. No overhead work. E. Avoid frequent forward bending at the waist or prolonged stooping forward at the waist. Today's evaluation occupied a full 30 minutes altogether including time spent preparing to see the patient and providing this documentation. Prior to seeing the patient I did review outside medical records including imaging, office visit notes, exercise data, therapy notes, and consultation notes. In addition, we accommodated a worker/QRC/phys ician meeting. We also provided the worker and their employer with a detailed work ability letter. 04/03/2025 Headache, unspecified (ICD-10 - R51.9) See the HPI for Dr. Tejeda's recommended plans going forward including CT of the cervical spine on 04/07/2025, and OV with Dr. Tejeda on 04/17/2025. TPI's and SCS trial have been discussed. I have been managing workability. Her most recent note from 02/27/2025 includes: A. Four hour workday. B. Working up to four days per week. C. 15 lbs lifting restriction. D. No overhead work. E. Avoid frequent forward bending at the waist or prolonged stooping forward at the waist. Today's evaluation occupied a full 30 minutes altogether including time spent preparing to see the patient and providing this documentation. Prior to seeing the patient I did review outside medical records including imaging, office visit notes, exercise data, therapy notes, and consultation notes. In addition, we accommodated a worker/QRC/phys ician meeting. We also provided the worker and their employer with a detailed work ability letter. 04/03/2025 Dorsalgia, unspecified (ICD-10 - M54.9) See the HPI for Dr. Tejeda's recommended plans going forward including CT of the cervical spine on 04/07/2025, and OV with Dr. Tejeda on 04/17/2025. TPI's and SCS trial have been discussed. I have been managing workability. Her most recent note from 02/27/2025 includes: A. Four hour workday. B. Working up to four days per week. C. 15 lbs lifting restriction. D. No overhead work. E. Avoid frequent forward bending at the waist or prolonged stooping forward at the waist. Today's evaluation occupied a full 30 minutes altogether including time spent preparing to see the patient and providing this documentation. Prior to seeing the patient I did review outside medical records including imaging, office visit notes, exercise data, therapy notes, and consultation notes. In addition, we accommodated a worker/QRC/phys ician meeting. We also provided the worker and their employer with a detailed work ability letter. 04/03/2025 Other cervical disc degeneration, unspecified cervical region (ICD-10 - M50.30) See the HPI for Dr. Tejeda's recommended plans going forward including CT of the cervical spine on 04/07/2025, and OV with Dr. Tejeda on 04/17/2025. TPI's and SCS trial have been discussed. I have been managing workability. Her most recent note from 02/27/2025 includes: A. Four hour workday. B. Working up to four days per week. C. 15 lbs lifting restriction. D. No overhead work. E. Avoid frequent forward bending at the waist or prolonged stooping forward at the waist. Today's evaluation occupied a full 30 minutes altogether including time spent preparing to see the patient and providing this documentation. Prior to seeing the patient I did review outside medical records including imaging, office visit notes, exercise data, therapy notes, and consultation notes. In addition, we accommodated a worker/QRC/phys ician meeting. We also provided the worker and their employer with a detailed work ability letter. 04/03/2025 Other I, Ester Bender , am serving as a scribe to document services personally performed by Patel Arias MD, based upon my observations and the provider's statements to me. All documentation has been reviewed by the aforementioned doctor prior to being entered into the official medical record. I, Patel Arias MD attest that the above named individual is acting in scribe capacity, has observed my performance of the services and has documented them in accordance with my direction. The documentation recorded by the scribe accurately reflects the service I personally performed and the decisions made by me. See the HPI for Dr. Tejeda's recommended plans going forward including CT of the cervical spine on 04/07/2025, and OV with Dr. Tejeda on 04/17/2025. TPI's and SCS trial have been discussed. I have been managing workability. Her most recent note from 02/27/2025 includes: A. Four hour workday. B. Working up to four days per week. C. 15 lbs lifting restriction. D. No overhead work. E. Avoid frequent forward bending at the waist or prolonged stooping forward at the waist. Today's evaluation occupied a full 30 minutes altogether including time spent preparing to see the patient and providing this documentation. Prior to seeing the patient I did review outside medical records including imaging, office visit notes, exercise data, therapy notes, and consultation notes. In addition, we accommodated a worker/QRC/phys ician meeting. We also provided the worker and their employer with a detailed work ability letter. Plan Of Treatment Treatment Notes Assessment Notes Other I, Ester Bender, am serving as a scribe to document services personally performed by Patel Arias MD, based upon my observations and the provider's statements to me. All documentation has been reviewed by the aforementioned doctor prior to being entered into the official medical record. I, Patel Arias MD attest that the above named individual is acting in scribe capacity, has observed my performance of the services and has documented them in accordance with my direction. The documentation recorded by the scribe accurately reflects the service I personally performed and the decisions made by me. Referrals Referral Date Details 04/03/2025 04/03/2025, I am rec ommending worker's compensation insurance to help support the patient with a six month gym membership. I recommend a gym with a pool facility as the patient is using swimming as a form of exercise as I highly endorse. Next Appt Details Follow Up: 6 Weeks, Reason: Provider Name:Patel Arias , 05/15/2025 03:15:00 PM, [address] [place], [address], Progress Notes * Michelle MINOR LDOB: [birth year] (35 yo F)Acc No.[id number]:04/03/2025 Follow Up Patient: Michelle CONTEH Provider: Navneet Arias MD :1990 A ge:35 Y S ex:Female Date:04/03/2025 Phone: Address:[id number] [facility] [address], [place], [place]-[phone] Pcp:Pepe Caro Subjective: * Chief Complaints: * W C Right Neck DOI 09/24/2022 * HPI: C linic visit: Michelle is a pleasant 35-year-old female who returns to clinic today for follow-up evaluation regarding headaches, neck, right shoulder, and low back pain secondary to work injury dated 09/24/2022. She underwent a C5-C7 ACDF in 04/[address] Tejeda of [facility]. She is scheduled for a cervical CT scan on 04/07/2025, and she is scheduled to follow up with Dr. Tejeda to discuss a spinal cord stimulator on 04/17/2025. The patient has completed 38 visits of therapy here at [facility]. Functional improvements include overall strength. In terms of total recovery score, the patient feels she is at an 7 on a 10-point scale.She is making objectively measured strength gains in the equipment. - She most recently generated 192 in-lbs of resistance in the cervical extension piece of [employer] equipment. She began therapy generating 60 in-lbs of resistance. Her resistance goal range as calculated by the therapists is 192 in-lbs. - She most recently generated 60 in-lbs of resistance in the cervical rotation piece of [employer] equipment. She began therapy generating 20 in-lbs of resistance. Her resistance goal range as calculated by the therapists is 60 in-lbs. She completed an injection that was recommended by Dr. Tejeda at the T7-T8 level at [facility] on 02/17/2025. She reports that she has not had any relief from this so far. Regarding medications, she is currently taking methocarbamol 500mg QD a nd notes moderate pain relief without adverse side effects. Regarding occupation, she was injured while working for [employer] where she is no longer an employee. 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 The patient does have a qualified coordinator of rehabilitation services ([facility]), Beau Pittman, who is in attendance today. I have been managing workability. Her most recent note from 02/27/2025 includes: A. Four hour workday. B. Working up to four days per week. C. 15 lbs lifting restriction. D. No overhead work. E. Avoid frequent forward bending at the waist or prolonged stooping forward at the waist. P QRS MEASURE: 154,155 Fall Risk H ave you had two or more falls in the past year? N o, H ave you had any falls with injury in the past year? N o, P shelly of Care: D ocumented. D epression Screening: PHQ-9 L ittle interest or pleasure in doing things S everal days, F eeling down, depressed, or hopeless S everal days, T rouble falling or staying asleep, or sleeping too much S everal days, F eeling tired or having little energy S everal days, P oor appetite or overeating N ot at all, F eeling bad about yourself or that you are a failure, or have let yourself or your family down N ot at all, T rouble concentrating on things, such as reading the newspaper or watching television N ot at all, M oving or speaking so slowly that other people could have noticed; or the opposite, being so fidgety or restless that you have been moving around a lot more than usual N ot at all, T houghts that you would be better off or of hurting yourself in some way N ot at all, T otal Score 4 , I nterpretation M inimal Depression. I ntervention D epression Screening Findings N egative, N andree of the standardized tool used for adult depression screening: P atient Health Questionnaire (PHQ-9). * ROS: G eneral/Constitutional: Fatigue Y es. E ndocrine: Weakness Y es. N eurologic: Headache Y es. P sychiatric: Anxiety Y es. P atient did not fill out the rest. * Medical History: * Surgical History: R ight Ankle Bilateral Carpal Tunnel Tonsillectomy C5-7 ACDF 04/24/2024 * Hospitalization/Major Diagno stic Procedure: N o Hospitalization History. * Family History: F ather: , diagnosed with Unspecified heart disease. M other: alive, Family hx of cancer, diagnosed with Unspecified essential hypertension. * Social History: T obacco Use: T obacco Use/Smoking A re you a n onsmoker. W ork Status: P hussain of Employment: [employer]. M iscellaneous: M arital status: . D rug/Alcohol: A EUGENIO-C (Standard) D id you have a drink containing alcohol in the past year? N o,?Points 0 , I nterpretation N egative. * Medications: T akingTopamax 25 MG Tablet 2 tablet Orally Twice a day Baclofen 10 MG Tablet 1 tablet as needed Orally Three times a day Methocarbamol 500 MG Tablet 1 tablet Orally once a day Ozempic (0.25 or 0.5 MG/DOSE) 2 MG/3ML Solution Pen-injector 0.5mg Subcutaneous once a week Levothyroxine Sodium 88 MCG Tablet Oral glipiZIDE 5 MG Tablet Oral TENS/NMES Unit Device Use as directed , Notes to Pharmacist: Contact patient at [phone] 500 MG Tablet 1 tablet with food or milk as needed Orally every 8 hrs Medication List reviewed and reconciled with the patientTaking Topamax 25 MG Tablet 2 tablet Orally Twice a day Taking Baclofen 10 MG Tablet 1 tablet as needed Orally Three times a day Taking Methocarbamol 500 MG Tablet 1 tablet Orally once a day Taking Ozempic (0.25 or 0.5 MG/DOSE) 2 MG/3ML Solution Pen-injector 0.5mg Subcutaneous once a week Taking Levothyroxine Sodium 88 MCG Tablet Oral Taking glipiZIDE 5 MG Tablet Oral Taking TENS/NMES Unit Device Use as directed , Notes to Pharmacist: Contact patient at [phone] Naproxen 500 MG Tablet 1 tablet with food or milk as needed Orally every 8 hrs Medication List reviewed and reconciled with the patient * Allergies: H ydrocodone: rash, itchingTape: rash, itchingAdhesive: rash, itchingno[Allergies Verified] Objective: * Vitals: H t: 67 in, Wt: Not Taken - No Medical Need, BMI: Not Taken - No Medical Need, BP:134/82mm Hg, VAS-Today:61-10, VAS-Av.51-10, VAS-High:101-10. * Examination: C ervical Exam: General T he patient continues to have occipital headaches. Neck pain is moderate at worst. It is right-sided and extends somewhat into the right suprascapular region, and modestly into the right interscapular region. Cervical range of motion is mildly reduced, but overall, range of motion is excellent. L umbar Exam: General T he patient continues to have high levels of pain and burning sensation in the lower thoracic region spanning from the left flank, across the midline, and to the right. This is the most difficult problem at present. C QM Exceptions: BMI not documented R uziel: M edical ReasonType of Medical Reason: M edical contraindication. Assessment: * Assessment: 1. F usion of spine, cervical region - M43.22 (Primary) 2 . P ain in thoracic spine - M54.6 3 . C ervicalgia - M54.2 4 . H eadache, unspecified - R51.9 5 . D orsalgia, unspecified - M54.9 6 . O ther cervical disc degeneration, unspecified cervical region - M50.30 See the HPI for Dr. Tejeda's recommended plans going forward including CT of the cervical spine on 04/07/2025, and OV with Dr. Tejeda on 04/17/2025. TPI's and SCS trial have been discussed. I have been managing workability. Her most recent note from 02/27/2025 includes: A. Four hour workday. B. Working up to four days per week. C. 15 lbs lifting restriction. D. No overhead work. E. Avoid frequent forward bending at the waist or prolonged stooping forward at the waist. Today's evaluation occupied a full 30 minutes altogether including time spent preparing to see the patient and providing this documentation. Prior to seeing the patient I did review outside medical records including imaging, office visit notes, exercise data, therapy notes, and consultation notes. In addition, we accommodated a worker/QRC/physician meeting. We also provided the worker and their employer with a detailed work ability letter. Plan: * Treatment: * Procedure Codes: * Preventive Medicine: iSpine Inventory Forms: N nadia Oswestry N DI Score (0-100) 7 4, N DI Interpretation 6 0-79 (Crippled). * Follow Up: 6 Weeks * Billing Information: * Visit Code: [id number] Established Patient level 4. * Procedure Codes: * Sign off status: Completed true * Provider: Navneet Arias MD Date: 0 04/03/2025 Generated for Oscar henriquez/Kel/Edinsonitting on: 0 04/23/2025 02:12 PM CDT History and Physical Notes * HPI (History of Present Illness) Category Sub-Category Detail Notes Category Not es Depression Screening PHQ-9 Little inte rest or pleasure in doing things: Several days Feeling down, depressed, or hopeless: Se veral days Trouble falling or staying asleep, or sl eeping too much: Several days Feeling tired or having little energy: S everal days Poor appetite or overeating: Not at all Feeling bad about yourself o r that you are a failure, or have let yourself or your family down: Not at all Trouble concentrating on thi ngs, such as reading the newspaper or watching television: Not at all Moving or speaking so slowly that other people could have noticed; or the opposite, being so fidgety or restless that you have been moving around a lot more than usual: Not at all Thoughts that you would be b nikky off or of hurting yourself in some way: Not at all Total Score: 4 Interpretation: Minimal Depression Intervention Depression Screening Findings: N egative Name of the standardized too l used for adult depression screening:: Patient Health Questionnaire (PHQ-9) Clinic visit Michelle is a pleasant 35-year-old female who returns to clinic today for follow-up evaluation regarding headaches, neck, right shoulder, and low back pain secondary to work injury dated 09/24/2022. She underwent a C5-C7 ACDF in 04/[address] Tejeda of [facility]. She is scheduled for a cervical CT scan on 04/07/2025, and she is scheduled to follow up with Dr. Tejead to discuss a spinal cord stimulator on 04/17/2025. The patient has completed 38 visits of therapy here at [facility]. Functional improvements include overall strength. In terms of total recovery score, the patient feels she is at an 7 on a 10-point scale. She is making objectively measured strength gains in the equipment. - She most recently generated 192 in-lbs of resistance in the cervical extension piece of Med[employer] equipment. She began therapy generating 60 in-lbs of resistance. Her resistance goal range as calculated by the therapists is 192 in-lbs. - She most recently generated 60 in-lbs of resistance in the cervical rotation piece of MedX equipment. She began therapy generating 20 in-lbs of resistance. Her resistance goal range as calculated by the therapists is 60 in-lbs. She completed an injection that was recommended by Dr. Tejeda at the T7-T8 level at [facility] on 02/17/2025. She reports that she has not had any relief from this so far. Regarding medications, she is currently taking methocarbamol 500mg QD and notes moderate pain relief without adverse side effects. Regarding occupation, she was injured while working for [employer] where she is no longer an employee. 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 The patient does have a qualified coordinator of rehabilitation services (QRC), Beau Pittman, who is in attendance today. I have been managing workability. Her most recent note from 02/27/2025 includes: A. Four hour workday. B. Working up to four days per week. C. 15 lbs lifting restriction. D. No overhead work. E. Avoid frequent forward bending at the waist or prolonged stooping forward at the waist. PQRS MEASURE 154,155 Fall Risk Have you had t wo or more falls in the past year?: No Have you had any falls with injury in th e past year?: No Plan of Care:: Documented Examination Category Sub-Category Detail Notes Category Not es Lumbar Exam General The patient cont inues to have high levels of pain and burning sensation in the lower thoracic region spanning from the left flank, across the midline, and to the right. This is the most difficult problem at present Cervical Exam General The patient cont inues to have occipital headaches. Neck pain is moderate at worst. It is right-sided and extends somewhat into the right suprascapular region, and modestly into the right interscapular region. Cervical range of motion is mildly reduced, but overall, range of motion is excellent CQM Exceptions BMI not documented Reason:: Medical Reason Type of Medical Reason:: Medical contraindication Consultation Request Notes Referral Date Referring Provider Referred Provider Not es 04/03/2025 Patel Arias , I am recommend ing worker's compensation insurance to help support the patient with a six month gym membership. I recommend a gym with a pool facility as the patient is using swimming as a form of exercise as I highly endorse.
[2025-04-23 14:12] VITALS: BP 139/91; PULSE 102; RESP 16; TEMP 35.7; O2SAT 98; BMI 51.4
--- OUTSIDE RECORDS SUMMARY | 2025-04-23 14:12 | XMS_ITS | Clinical Summary ---
Demographics Address [address] [place] [id number] Home Phone Phone Mobile Phone Email Address Preferred Language Haitian Marital Status Unknown Baptist Affiliation Judaism Race White Ethnic Group Not or Lati no Author Organization [facility] Address [address] [place] [id number] Care Team Providers Care Manager Universal Name Role Phone Pepe Caro Primary Care Provider [phone] Allergies Active Allergy Reactions Criticality Noted Date Comments Adhesive Rash 01/20/2010 tapes Adhesive Tape-Silicones Other - Describe In Comment Field 01/28/2011 Hydrocodone-Acetamino phen Itching 12/19/2016 Other reaction(s): itchy Metformin *Unknown - Pt Doesn' t Remember 12/20/2022 Medications levothyroxine (SYNTHROID) 100 mcg tablet Take 176 mcg by mouth before breakfast. Active GLUCOSAM/GLUC ESCALANTE/EF-EZM-X-GLU C (GLUCOSAMINE COMPLEX ORAL) Take 1 Tablet by [...] by mouth every 4 hours if needed. 2 Active buPROPion (WELLBUTRIN XL) 150 mg Extended-Releas e tablet Take 150 mg by mouth once daily. 1 Active cyclobenzaprine (FLEXERIL) 10 mg tablet Take 10 mg by mouth at bedtime if needed. 1 Active doxycycline (VIBRAMYCIN) 100 mg capsule Take 100 mg by mouth 2 times daily. 2 Active semaglutide (Ozempic) 1 mg/dose (2 mg/1.5 mL) pen Inject 1 mg subcutaneous once weekly. Active oxyCODONE (ROXICODONE) 5 mg immediate release tabletIndicatio ns:Hidradenitis Take 1 Tablet (5 mg) by mouth every 4 hours if needed for Pain. 15 Tablet 2 Active ibuprofen (ADVIL; MOTRIN) 600 mg tabletIndicatio ns:Postoperativ e pain Take 1 Tablet (600 mg) by mouth every 6 hours if needed for Pain. Maximum of 3200 mg in 24 hours. 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 Gender Identity Not on file Sexual Orientation Not on file Occupation Industry Job Start Date Job End Date Not on file Not on file Not on file Not on file Obstetrics History Last Filed Vital Signs Vital Sign Reading Time Taken Comments Blood Pressure 106/51 12/22/2022 10:15 AM CDT Pulse 79 12/22/2022 10:30 AM CDT Temperature 36.2 C (97.1 F) 12/22/2022 9:00 AM CDT Respiratory Rate 16 12/22/2022 10:3 0 AM CDT Oxygen Saturation 98% 12/22/2022 10: 30 AM CDT Inhaled Oxygen Concentration - - Weight 144.9 kg (319 lb 6.4 oz) 12/22/2022 6:52 AM CDT Height 170.2 cm (5' 7) 12/22/2022 6:52 AM CDT Body Mass Index 50.03 12/22/2022 6:52 AM CDT Plan of Treatment Health Maintenance Due Date Last Done Comments Hepatitis B series for 19+ ( 2 of 3 - 3-dose series) 08/09/2000 07/12/2000 Depression screening for age 12+ 2001 HIV for age 15-65 01/09/2004 Hepatitis C screening for ag e 18-79 2007 Pap test for age 21-65 09/15/2012 9, 09/15/2009, 11/10/2008 BMI (ht and wt on same day) for age 18+ 12/16/2017 12/16/2016 Tetanus booster 06/10/2019 06/10/2009, 07/12/2000 COVID-19 vaccine series ( season) 2024 11/04/2021, 09/09/2021 Influenza Vaccine (#1) 2025 10/01/2009 Pneumococcal series for age 6-49 Aged Out No longer eligible b ased on patient's age to complete this topic Medical Devices Implanted Type Area Chemical Processing Equipment Repairer Device Identifier Shelf Expiration Date Model / Serial / Lot Sys Intrauterine Mirena - [id number] Implanted:Qty: 1 on 12/22/2022 by Juan Fragoso MD at [facility] N/A: Uterus [employer] 11/15/2024 [id number] / / [id number] Procedures Procedure Name Priority Date/Time Associated Diagnosis Comments HERBARIUM WORKER THIN PREP PAP SCREEN IMAGED Routine 09/15/2009 3:42 PM CREDENTIALING COORDINATOR Abnormal Glandular Papanicolaou Smear of Cervix from Last 3 Months or Most Recently Relevant to Health Maintenance Results * HERBARIUM WORKER THIN PREP PAP SCREEN IMAGED (09/15/2009 3:42 PM CREDENTIALING COORDINATOR) CYTOLOGY CYTOPATHOLOGY REPORT [facility] Status: CORRECTED REPORT [id number] CLINICAL INFORMATION Last Date of LMP :absent Last Pap Date :11/10/08 Last Pap Result :LSIL ABN Cement/Bx Past 5 YRS :None Hormone Usage :None Menstrual Status :Irregular Periods Cement/Bx done today :No Additional Information :None given HPV Request :HPV if ASCUS SPECIMEN SOURCE :Cervical/vaginal ThinPrep Vial, screening SPECIMEN ADEQUACY :Satisfactory for evaluation Endocervical component present. INTERPRETATION/RES ULT Negative for intraepithelial lesion or malignancy (NIL) EDUCATIONAL NOTES AND SUGGESTIONS displays the correct provider order. This corrected report is issued to reflect the clinic incorrectly ordered this ThinPrep Pap as Screening instead of Diagnostic. The diagnosis does not change. Cytology 1st Screener :ll Cytology 2nd Screener :cmm Signed by : AP Technologist This specimen was screened by the FDA approved ThinPrep Imaging System and manually reviewed. NOTE: The Pap test is a screening technique, not a diagnostic procedure. It is used primarily to screen for squamous cancers and precursor lesions. Published studies have shown that it is subject to both false negative and false positive results. The pap test should not be used as the sole means to diagnose or exclude pre-malignant and malignant lesions. 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 Do not delete or resolve the infection flag. 02/10/2022 02/10/2022 Insurance * Guarantor: Michelle Glover Account Type Relation to Patient Date of Phone Billing Address Personal/Family Self 1990 [address] [place] [id number] [place] * Guarantor: Michelle Glover Account Type Relation to Patient Date of Phone Billing Address Personal/Family Self 1990 [address] [place] [id number] [employer] * Guarantor: Michelle Glover Account Type Relation to Patient Date of Phone Billing Address Workers Comp Self 1990 [address] [place] [address] [employer] [place] [employer] [place] [id number] Advance Directives * Full Code (Latest Code [...] 11:03 AM 12/19/2016 5:58 PM Care Teams Manager Universal Relationship Specialty Start Date End Date Pepe Caro PA PCP - General Physician Machine Brush Maker 02/09/22
--- OUTSIDE RECORDS SUMMARY | 2025-04-23 14:12 | XMS_ITS | Clinical Summary ---
Demographics Address [address] [place] [address] Mobile Phone Home Phone Preferred Language ENG Marital Status Unknown Voodoo Affiliation Unknown Race Unknown Ethnic Group Non , /a, or Hungarian Origin Author Organization [facility] Address [address] [place] [address] Care Team Providers Care Lapping Machine Set Up Operator Name Role Phone Unavailable Primary Care Provider [...] for each transition of care or referral. [facility] Allergies Active Allergy Reactions Criticality Noted Date Comments Morphine And Codeine Gastrointestinal Also Itching Medications drug not in computer A whole list, cant think of them all. Glipizide for sure. Active Active Problems No known active problems Social History Tobacco Use Types Packs/Day Years Used Date Smoking Tobacco: Never Smokeless Tobacco: Never Tobacco Cessation:Counseling Given: Not Answered Comments No Sex and Gender Information Value Date Recorded Sex Assigned at Not on file Legal Sex Female 6:22 PM CDT Gender Identity Not on file Sexual Orientation Not on file Last Filed Vital Signs Vital Sign Reading Time Taken Comments Blood Pressure 143/96 04/07/2022 6:34 PM CDT Pulse 92 04/07/2022 6:34 PM CDT Temperature 37 C (98.6 F) 04/07/2022 6:34 PM CDT Respiratory Rate 20 04/07/2022 6:34 PM CDT Oxygen Saturation 100% 04/07/2022 6:34 PM CDT Inhaled Oxygen Concentration - - Weight - - Height - - Body Mass Index - - Plan of Treatment Health Maintenance Due Date Last Done Comments Cervical Cancer Screening Due 1990 Hep C Screening (Preventive Services) 1990 IPV (Polio) Vaccine (2 of 3 - 4-dose series) 01/24/1994 12/27/1993 HIV Screening (Preventive Services) 2005 Adult Preventive Visit 2007 HepB Vaccine (1) 01/09/2008 DTaP/Tdap/Td Vaccine (3 - Tdap) 06/10/2019 06/10/2009, 12/27/1993 COVID-19 Vaccine (1 - 2023- season) 2024 Influenza Vaccine (#1) 2025 , 07/17/2014, 08/03/2011, Additional history exists Zoster/Shingles Vaccine (1 of 2) 2039 Pneumococcal Vaccine Aged Out 07/17/2014 No long er eligible based on patient's age to complete this topic HPV Vaccine Completed 07/09/2015, 01/2014, 04/07/2011, Additional history exists HepA Vaccine Aged Out No longer eligi ble based on patient's age to complete this topic Hib Vaccine Aged Out No longer eligi ble based on patient's age to complete this topic MCV4 Vaccine Aged Out No longer eligi ble based on patient's age to complete this topic Meningococcal B Vaccine Aged Out No l onger eligible based on patient's age to complete this topic Insurance * Guarantor: Michelle Minor Account Type Relation to Patient Date of Phone Billing Address Personal/Family Self 1990 [address] [address] BCBS OUT OF STATE * Guarantor: Michelle Minor Account Type Relation to Patient Date of Phone Billing Address Personal/Family Self 1990 [address] [address]
--- NOTE | 2025-04-23 15:19 | ED.GENADULT ---
HPI - General Adult General Chief complaint: Laceration/Wound Stated complaint: Ingrown hair L leg infected Time Seen by Provider: 04/23/25 14:48 Source: patient Mode of arrival: ambulatory Limitations: no limitations History of Present Illness HPI narrative: 35-year-old female presenting today with concerns about infection in the back of the left leg. She states that a few days ago she had an ingrown hair that her mom does go out and since then the area has become more painful and red. She denies systemic symptoms. Related Data Home Medications ?Medication ?Instructions ?Recorded ?Confirmed topiramate 25 mg tablet 50 mg PO BID 01/01/24 01/01/24 levothyroxine 100 mcg tablet 100 mcg PO DAILY 04/23/25 04/23/25 (Euthyrox) naproxen 250 mg tablet 250 mg PO DAILY 04/23/25 04/23/25 Previous Rx's ?Medication ?Instructions ?Recorded cefadroxil 500 mg capsule 500 mg PO BID 7 days #14 caps 04/23/25 Allergies Allergy/AdvReac Type Severity Reaction Status Date / Time hydrocodone Allergy Mild Hives Verified 04/23/25 14:10 adhesive tape AdvReac Intermediate Rash Verified 04/23/25 14:10 Review of Systems Status of ROS: Reports: 6 or more systems reviewed and unremarkable except as noted in History and below PFSH PFS Social History Smoking Status: Never smoker Second hand tobacco smoke exposure: No How often do you have a drink containing alcohol: never How often do you have six or more drinks on one occasion: Never AUDIT-C Alcohol total score: 0 Non-prescribed substance use: marijuana (any form) Exam Narrative: Exam Narrative: Morbidly obese, well-developed patient in no acute distress. Alert and oriented. Answers questions appropriately. Mood and affect are appropriate. Thoughts are goal oriented and rational. No tangential or magical thinking noted. Patient speaks in full sentences without needing to catch her breath. Extremities: On the back of the left leg just distal to the flexor surface of the knee patient has a large indurated area approximately 2-2.5 inches across, erythematous warm to touch. In the center of it there is a small ulcer. The skin is moist and macerated in the center of it as well. Const: Vital Signs, click to edit/add: Vital Signs - 24 hr 04/23/25 14:12 Temperature 96.3 F L Pulse Rate [Pulse Oximeter] 102 H Respiratory Rate 16 Blood Pressure [Ri ght Upper Arm] 139/91 H Pulse Oximetry 98 Oxygen Delivery Me thod Room Air Course Course ED Course: Area was cleaned and dried. Area of erythema was outlined. Patient received 1 dose of IM Rocephin in the today. Vital Signs Vital signs: Initial Vital Signs Temperature 96.3 F L 04/23/25 14:12 Temperature Source Temporal Artery Scan 04/23/25 14:12 Pulse Rate 102 H 04/23/25 14:12 Respiratory Rate 16 04/23/25 14:12 Blood Pressure 139/91 H 04/23/25 14:12 Blood Pressure Mean 107 H 04/23/25 14:12 Blood Pressure Position Sitting 04/23/25 14:12 Pulse Oximetry 98 04/23/25 14:12 Oxygen Delivery Method Room Air 04/23/25 14:12 Vital Signs Temperature 96.3 F L 04/23/25 14:12 Pulse Rate 102 H 04/23/25 14:12 Respiratory Rate 16 04/23/25 14:12 Blood Pressure 139/91 H 04/23/25 14:12 Pulse Oximetry 98 04/23/25 14:12 Oxygen Delivery Method Room Air 04/23/25 14:12 Temperature 96.3 F L 04/23/25 14:12 Pulse Rate 102 H 04/23/25 14:12 Respiratory Rate 16 04/23/25 14:12 Blood Pressure 139/91 H 04/23/25 14:12 Pulse Oximetry 98 04/23/25 14:12 Oxygen Delivery Method Room Air 04/23/25 14:12 Medical Decision Making MDM Narrative Medical decision making narrative: 35-year-old female with cellulitis. We will put the patient on cefadroxil b.i.d. for the next week. She will follow up with her primary care provider in 48 hours. Discharge Plan Discharge Clinical Impression: Cellulitis Patient Disposition: Home, Self-Care Condition: Stable Additional Instructions: Keep area clean and dry. Follow-up with your primary care provider in 48 hours. Return to the ER if in the next 24 hours the area of redness spreads up or down your leg, or you develop a fever. Prescriptions: New cefadroxil 500 mg capsule 500 mg PO BID 7 Days Qty: 14 0RF No Action naproxen 250 mg tablet 250 mg PO DAILY levothyroxine [Euthyrox] 100 mcg tablet 100 mcg PO DAILY topiramate 25 mg tablet 50 mg PO BID Follow Up/Referrals: Provider,Not a Local [Primary Care Provider, Family Practice] Stand Alone Forms: [employer] Info Instructions
[2025-04-23] MEDS: cefTRIAXone 1 GM VIAL IM (15:30)
[2025-04-23] MEDS: LIDOCAINE 1% 5 ml (pf) 5 ML VIAL 2.1 ML IM (15:31)
--- OUTSIDE RECORDS SUMMARY | 2025-04-23 15:41 | XMS_ITS | Patient Health Record ---
Demographics Address [address] [facility] [address] [place] [address] Mobile Email Address Preferred Language en Marital Status Unknown Buddhist Affiliation Unknown Race White Ethnic Group Not or Lati no Author Organization [facility] Address [address] [place] [address] [address] [place] [address] Care Team Providers Care Enamel Finisher Name Role Phone Pepe Caro Primary Care Provider Unavailab Tk Chavez Unavailable [phone] Ximena eDshpande Unavailable Unavailable Emmie Figueroa Unavailable [phone] Ryder Boucher Unavailable [phone] Patel Arias Unavailable [phone] Lily Mendoza Unavailable [phone] Leesa Schuster Unavailable [phone] Sadia Sanford Unavailable [phone] Elba Willson Unavailable Unavailable Allergies Allergen (clinical drug ingredient) Drug/Non Drug Allergy documented on EMR Reaction Allergy Type Onset Date Status Adhesive rash, itching Allergy Active hydrocodone Hydrocodone rash, itching Drug Allergy Active Tape rash, itching Allergy Active Reason For Referral Reason 07/05 Faxed to RE HAB PT and OT: [facility] C[facility] Note the timeline post-fusion. Diagnosis 1 Cervicalgia (M54.2) Diagnosis 2 Dorsalgia, unspecifi ed (M54.9) Diagnosis 3 Segmental and somati c dysfunction of cervical region (M99.01) Diagnosis 4 Fusion of spine, cer vical region (M43.22) Referral Organization [facility] Referring Provider First Name Patel Referring Provider Last Name Hugo Referring Provider Speciality Occupation al Medicine Referred Organization [facility] Referred Provider Norris Perry Referred [facility] [address] [facility] [facility] [facility] [place], [place],[address], Referred Provider Specialty Rehabilitati on General Notes Christine Rodríguez 07/05/20 24 10:49:16 AM >Faxed to WCMarcos Ann 07/10/2024 02:29:03 PM > approval rcvd. Ok to rashiJosef Katie 07/10/2024 02:31:55 PM >Therapy is scheduled. Referral Priority Routine Reason - Rehab PT/OT visi ts Diagnosis 1 Other chronic pain ( G89.29) Referral Organization [facility] Referring Provider First Name Surendra Referring Provider Last Name Allison Referring Provider Speciality Physical M edicine and Rehabilitation Referred Organization [facility] Referred Provider Surendra Cooper Referred Address [address] [facility] [address],[place], [place],[address],[place] Referred Provider Specialty Physical Med icine and Rehabilitation Referral Priority Routine Reason - Rehab F/U visits Diagnosis 1 Other chronic pain ( G89.29) Referral Organization [facility] Referring Provider First Name Surendra Referring Provider Last Name Allison Referring Provider Speciality Physical M edicine and Rehabilitation Referred Organization [facility] Referred Provider Surendra Cooper Referred Address [address],[place], [place],[address],[place] Referred Provider Specialty Physical Med icine and Rehabilitation Referral Priority Routine Reason REHAB PT and OT: [facility] I recommend adding 10 additional visits of therapy to the 5 that remain. Please see my medical note for justification. Diagnosis 1 Fusion of spine, cer vical region (M43.22) Diagnosis 2 Cervicalgia (M54.2) Diagnosis 3 Dorsalgia, unspecifi ed (M54.9) Diagnosis 4 Segmental and somati c dysfunction of cervical region (M99.01) Diagnosis 5 Headache, unspecifie d (R51.9) Referral Organization [facility] Referring Provider First Name Patel Referring Provider Last Name Hugo Referring Provider Speciality Occupation al Medicine Referred Organization [facility] Referred Provider Norris Perry Referred Address [address], [place],[address],[place] Referred Provider Specialty Rehabilitati on General Notes Jessica Caldera 025 11:57:51 AM >faxed to Werner Angela 11/25/2024 06:33:13 AM >WC approval rcvd for 10 visits Referral Priority Routine Reason WC PT OT Visits Diagnosis 1 Other chronic pain ( G89.29) Referral Organization [facility] Referring Provider First Name Surendra Referring Provider Last Name Alilson Referring Provider Speciality Physical M edicine and Rehabilitation Referred Organization [facility] Referred Provider Surendra Cooper Referred Address [address] [facility] [address] [address],[place],[address],[place] Referred Provider Specialty Physical Med icine and Rehabilitation Referral Priority Routine Reason 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 REHAB PT and OT: [facility] LUMBAR Add lumbar/torso [facility] to current POC . Consider GT. Diagnosis 1 Fusion of spine, cer vical region (M43.22) Diagnosis 2 Cervicalgia (M54.2) Diagnosis 3 Dorsalgia, unspecifi ed (M54.9) Referral Organization [facility] Referring Provider First Name Patel Referring Provider Last Name Hugo Referring Provider Speciality Occupation al Medicine Referred Organization [facility] Referred Provider Norris Perry Referred Address [address] [facility] [address], [place],[address],[place] Referred Provider Specialty Rehabilitati on General Notes Jessica Caldera 025 11:05:37 AM >faxed to Werner Angela 02/21/2025 07:17:29 AM >faxed to x2 and lvm for Werner schaefer Angela 02/26/2025 09:34:34 AM >lvm for Werner schaefer Angela 03/13/2025 07:51:52 AM >lvm for adj x[facility] 03/26/2025 03:19:11 PM >lvm and emailed Werner schaefer Angela 04/04/2025 11:25:55 AM >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 Referral Priority Routine Reason WC Rehab Follow Up Diagnosis 1 Other chronic pain ( G89.29) Referral Organization [facility] Referring Provider First Name Patel Referring Provider Last Name Hugo Referring Provider Speciality Occupation al Medicine Referred Organization [facility] Referred Provider Patel Arias Referred Address [address],[place],[address],[place] Referred Provider Specialty Occupational Medicine Referral Priority Routine Reason I am recommending wo rker's compensation [...] Speciality Occupation al Medicine Referred Provider Specialty Cherylcellaneou s General Notes Ester Bender 2024 04:04:11 PM >Order printed for patient and [facility]. Referral Priority Routine Medications Medication SIG (Take, Route, Frequency, Duration) Notes Start Date End Date Status glipiZIDE 5 MG Oral; Duration: 90 Days Active TENS/NMES Unit Use as directed; Duration: 1 days Contact patient at [phone] 09/12/2024 Active Naproxen 500 MG 1 tablet with food o r milk as needed Orally every 8 hrs; Duration: 30 days Active Topamax 25 MG 2 tablet Orally Twic e a day; Duration: 30 days Active Baclofen 10 MG 1 tablet as needed Orally Three times a day; Duration: 30 days Active Methocarbamol 500 MG 1 tablet Orally onc e a day; Duration: 30 days 10/24/2023 Active Ozempic (0.25 or 0.5 MG/DOSE) 2 MG/3ML 0.5mg Subcutaneous once a week Active Levothyroxine Sodium 88 MCG Oral; Duration: 90 Days Active Social History Tobacco Use: Social History Observation Description Date Details (start date - stop date) Never Smoker NA - NA Tobacco Use/Smoking: Question Answer Notes Are you a nonsmoker Alcohol Screen Question Answer Notes Did you have a drink containing alcohol in the p ast year? No Points 0 Interpretation Negative AUDIT-C (Standard) Question Answer Notes Did you have a drink containing alcohol in the p ast year? No Points 0 Interpretation Negative Problems Problem Type SNOMED Code ICD Code Onset Dates Problem Status W/U Status Risk Notes Problem Chronic pain (92979452) Other chronic pain (G89.29) Active confirmed Problem Shoulder joint pain (698932953) Pain in right shoulder (M25.511) Active confirmed Problem Primary fusion of cervical spine (853765304) Fusion of spine, cervical region (M43.22) Active confirmed Problem Cervical spondylosis without myelopathy (159116056) Spondylosis without myelopathy or radiculopathy, cervical region (M47.812) Active confirmed Problem Degeneration of cervical intervertebral disc (17212950) Other cervical disc degeneration, unspecified cervical region (M50.30) Active confirmed Problem Pain in thoracic spine (324210381) Pain in thoracic spine (M54.6) Active confirmed Problem Backache (697303353) Dorsalgia, unspecified (M54.9) Active confirmed Problem Segmental and somatic dysfunction (078121240) Segmental and somatic dysfunction of cervical region (M99.01) Active confirmed Problem Headache (58435261) Headache, unspecified (R51.9) Active confirmed Problem Cervicalgia (82933957) Cervicalgia (M54.2) Active confirmed Problem Spinal stenosis in cervical region (80230983) Spinal stenosis of cervical region (M48.02) Active confirmed Problem Cervical radiculopathy (66565323) Radiculopathy of cervical spine (M54.12) Active confirmed Vital Signs Blood pressure diastolic 82 mm Hg 04/03/2025 Height 67 in 04/03/2025 Blood pressure systolic 134 mm Hg 04/03/2025 Weight 309 lbs 02/27/2025 BMI 48.39 kg/m2 02/27/2025 Encounters Encounter Location Date Provider Diagnosis [facility] [address] [place] [address] 06/27/2024 Patel Arias Cervicalgia M54.2 ; Segmental and somatic dysfunction of cervical region M99.01 ; Dorsalgia, unspecified M54.9 and Fusion of spine, cervical region M43.22 [facility] [address] [place] [address] 07/11/2024 Sadia Sanford Segmental and somatic dysfunction of cervical region M99.01 ; Cervicalgia M54.2 ; Dorsalgia, unspecified M54.9 and Fusion of spine, cervical region M43.22 [facility] [address] [place] [address] 07/17/2024 Ryder Boucher Segmental and somatic dysfunction of cervical region M99.01 ; Cervicalgia M54.2 ; Dorsalgia, unspecified M54.9 and Fusion of spine, cervical region M43.22 [facility] [address] [place] [address] 07/24/2024 Lily Kelly Cervicalgia M54.2 ; Segmental and somatic dysfunction of cervical region M99.01 ; Dorsalgia, unspecified M54.9 and Fusion of spine, cervical region M43.22 [facility] [address] [place] [address] 07/26/2024 Leesa Schuster Cervicalgia M54.2 ; Segmental and somatic dysfunction of cervical region M99.01 ; Dorsalgia, unspecified M54.9 and Fusion of spine, cervical region M43.22 [facility] [address] [place] [address] 07/29/2024 Ryder Hernandezveskaila Cervicalgia M54.2 ; Segmental and somatic dysfunction of cervical region M99.01 ; Dorsalgia, unspecified M54.9 and Fusion of spine, cervical region M43.22 [facility] [address] [place] [address] 08/06/2024 Sadia Sanford Cervicalgia M54.2 ; Segmental and somatic dysfunction of cervical region M99.01 ; Dorsalgia, unspecified M54.9 and Fusion of spine, cervical region M43.22 [facility] [address] [place] [address] 08/08/2024 Patel Hugo Cervicalgia M54.2 ; Dorsalgia, unspecified M54.9 ; Headache, unspecified R51.9 ; Other cervical disc degeneration, unspecified cervical region M50.30 and Fusion of spine, cervical region M43.22 [facility] [address] [place] [address] 08/08/2024 Lily Kelly Cervicalgia M54.2 ; Segmental and somatic dysfunction of cervical region M99.01 ; Dorsalgia, unspecified M54.9 and Fusion of spine, cervical region M43.22 [facility] [address] [place] [address] 08/12/2024 Ryder Dobbson Cervicalgia M54.2 ; Segmental and somatic dysfunction of cervical region M99.01 ; Dorsalgia, unspecified M54.9 and Fusion of spine, cervical region M43.22 [facility] [address] [place] [address] 08/20/2024 Lily Mendoza Cervicalgia M54.2 ; Segmental and somatic dysfunction of cervical region M99.01 ; Dorsalgia, unspecified M54.9 and Fusion of spine, cervical region M43.22 [facility] [address] [place] [address] 08/29/2024 Ryder Boucher Cervicalgia M54.2 ; Segmental and somatic dysfunction of cervical region M99.01 ; Dorsalgia, unspecified M54.9 and Fusion of spine, cervical region M43.22 [facility] [address] [place] [address] 09/12/2024 Patel Arias Cervicalgia M54.2 ; Dorsalgia, unspecified M54.9 ; Headache, unspecified R51.9 ; Other cervical disc degeneration, unspecified cervical region M50.30 and Fusion of spine, cervical region M43.22 [facility] [address] [place] [address] 09/13/2024 Sadia Sanford Cervicalgia M54.2 ; Segmental and somatic dysfunction of cervical region M99.01 ; Dorsalgia, unspecified M54.9 and Fusion of spine, cervical region M43.22 [facility] [address] [place] [address] 09/25/2024 Sadia Williamsport Cervicalgia M54.2 ; Segmental and somatic dysfunction of cervical region M99.01 ; Dorsalgia, unspecified M54.9 and Fusion of spine, cervical region M43.22 [facility] [address] [place] [address] 09/30/2024 Sadia [place] Cervicalgia M54.2 ; Segmental and somatic dysfunction of cervical region M99.01 ; Dorsalgia, unspecified M54.9 and Fusion of spine, cervical region M43.22 [facility] [address] [place] [address] 10/11/2024 Leesa Schuster Cervicalgia M54.2 ; Segmental and somatic dysfunction of cervical region M99.01 ; Dorsalgia, unspecified M54.9 and Fusion of spine, cervical region M43.22 [facility] [address] [place] [address] 10/17/2024 Patel Arias Dorsalgia, unspecified M54.9 ; Cervicalgia M54.2 ; Headache, unspecified R51.9 ; Other cervical disc degeneration, unspecified cervical region M50.30 and Fusion of spine, cervical region M43.22 [facility] [address] [place] [address] 10/17/2024 Sadia Sanford Cervicalgia M54.2 ; Segmental and somatic dysfunction of cervical region M99.01 ; Dorsalgia, unspecified M54.9 and Fusion of spine, cervical region M43.22 [facility] [address] [place] [address] 10/22/2024 Emmie Applebee Cervicalgia M54.2 ; Segmental and somatic dysfunction of cervical region M99.01 ; Dorsalgia, unspecified M54.9 and Fusion of spine, cervical region M43.22 [facility] [address] [place] [address] 10/29/2024 Lily Kelly Cervicalgia M54.2 ; Segmental and somatic dysfunction of cervical region M99.01 ; Dorsalgia, unspecified M54.9 and Fusion of spine, cervical region M43.22 [facility] [address] [place] [address] 10/31/2024 Lily Kelly Cervicalgia M54.2 ; Segmental and somatic dysfunction of cervical region M99.01 ; Dorsalgia, unspecified M54.9 and Fusion of spine, cervical region M43.22 [facility] [address] [place] [address] 11/05/2024 Emmie Applebee Cervicalgia M54.2 ; Segmental and somatic dysfunction of cervical region M99.01 ; Dorsalgia, unspecified M54.9 and Fusion of spine, cervical region M43.22 [facility] [address] [place] [address] 11/12/2024 Emmie Applebee Cervicalgia M54.2 ; Segmental and somatic dysfunction of cervical region M99.01 ; Dorsalgia, unspecified M54.9 and Fusion of spine, cervical region M43.22 [facility] [address] [place] [address] 11/14/2024 Patel Arias Fusion of spine, cervical region M43.22 ; Cervicalgia M54.2 ; Dorsalgia, unspecified M54.9 and Headache, unspecified R51.9 [facility] [address] [place] [address] 11/14/2024 Sadia [place] Cervicalgia M54.2 ; Segmental and somatic dysfunction of cervical region M99.01 ; Dorsalgia, unspecified M54.9 and Fusion of spine, cervical region M43.22 [facility] [address] [place] [address] 11/19/2024 Emmie Bethbee Cervicalgia M54.2 ; Segmental and somatic dysfunction of cervical region M99.01 ; Dorsalgia, unspecified M54.9 and Fusion of spine, cervical region M43.22 [facility] [address] [place] [address] 11/26/2024 Ryder Narveson Cervicalgia M54.2 ; Segmental and somatic dysfunction of cervical region M99.01 ; Dorsalgia, unspecified M54.9 and Fusion of spine, cervical region M43.22 [facility] [address] [place] [address] 11/28/2024 Sadia Juvenal Cervicalgia M54.2 ; Segmental and somatic dysfunction of cervical region M99.01 ; Dorsalgia, unspecified M54.9 and Fusion of spine, cervical region M43.22 [facility] [address] [place] [address] 12/03/2024 Ryder Narveson Cervicalgia M54.2 ; Segmental and somatic dysfunction of cervical region M99.01 ; Dorsalgia, unspecified M54.9 and Fusion of spine, cervical region M43.22 [facility] [address] [place] [address] 12/10/2024 Elba Willson Cervicalgia M54.2 ; Segmental and somatic dysfunction of cervical region M99.01 ; Dorsalgia, unspecified M54.9 and Fusion of spine, cervical region M43.22 [facility] [address] [place] [address] 12/17/2024 Sadia Sanford Cervicalgia M54.2 ; Segmental and somatic dysfunction of cervical region M99.01 ; Dorsalgia, unspecified M54.9 and Fusion of spine, cervical region M43.22 [facility] [address] [place] [address] 12/23/2024 Patel Arias Fusion of spine, cervical region M43.22 ; Cervicalgia M54.2 ; Dorsalgia, unspecified M54.9 and Headache, unspecified R51.9 [facility] [address] [place] [address] 12/24/2024 Ryder Davidveson Cervicalgia M54.2 ; Segmental and somatic dysfunction of cervical region M99.01 ; Dorsalgia, unspecified M54.9 and Fusion of spine, cervical region M43.22 [facility] [address] [place] [address] 01/10/2025 Ryder Davidveson Cervicalgia M54.2 ; Segmental and somatic dysfunction of cervical region M99.01 ; Dorsalgia, unspecified M54.9 and Fusion of spine, cervical region M43.22 [facility] [address] [place] [address] 01/14/2025 Emmie Figueroa Cervicalgia M54.2 ; Segmental and somatic dysfunction of cervical region M99.01 ; Dorsalgia, unspecified M54.9 and Fusion of spine, cervical region M43.22 [facility] [address] [place] [address] 01/20/2025 Patel Arias Fusion of spine, cervical region M43.22 ; Cervicalgia M54.2 ; Dorsalgia, unspecified M54.9 and Headache, unspecified R51.9 [facility] [address] [place] [address] 01/21/2025 Sadia Juvenal Cervicalgia M54.2 ; Segmental and somatic dysfunction of cervical region M99.01 ; Dorsalgia, unspecified M54.9 and Fusion of spine, cervical region M43.22 [facility] [address] [place] [address] 01/28/2025 Sadia Sanford Cervicalgia M54.2 ; Segmental and somatic dysfunction of cervical region M99.01 ; Dorsalgia, unspecified M54.9 and Fusion of spine, cervical region M43.22 [facility] [address] [place] [address] 02/03/2025 Patel Arias Fusion of spine, cervical region M43.22 ; Cervicalgia M54.2 ; Other cervical disc degeneration, unspecified cervical region M50.30 and Dorsalgia, unspecified M54.9 [facility] [address] [place] [address] 02/04/2025 Elba Willson Cervicalgia M54.2 ; Segmental and somatic dysfunction of cervical region M99.01 ; Dorsalgia, unspecified M54.9 and Fusion of spine, cervical region M43.22 [facility] [address] [place] [address] 02/11/2025 Sadia Sanford Cervicalgia M54.2 ; Segmental and somatic dysfunction of cervical region M99.01 ; Dorsalgia, unspecified M54.9 and Fusion of spine, cervical region M43.22 [facility] [address] [place] [address] 02/13/2025 Patel Arias Other cervical disc degeneration, unspecified cervical region M50.30 ; Cervicalgia M54.2 ; Fusion of spine, cervical region M43.22 ; Dorsalgia, unspecified M54.9 and Headache, unspecified R51.9 [facility] [address] [place] [address] 02/14/2025 Leesa Bland Cervicalgia M54.2 ; Segmental and somatic dysfunction of cervical region M99.01 ; Dorsalgia, unspecified M54.9 and Fusion of spine, cervical region M43.22 [facility] [address] [place] [address] 02/18/2025 Emmie Figueroa Cervicalgia M54.2 ; Segmental and somatic dysfunction of cervical region M99.01 ; Dorsalgia, unspecified M54.9 and Fusion of spine, cervical region M43.22 [facility] [address] [place] [address] 02/25/2025 Sadia Sanford Cervicalgia M54.2 ; Segmental and somatic dysfunction of cervical region M99.01 ; Dorsalgia, unspecified M54.9 and Fusion of spine, cervical region M43.22 [facility] [address] [place] [address] 02/27/2025 Patel Arias Dorsalgia, unspecified M54.9 ; Cervicalgia M54.2 ; Other cervical disc degeneration, unspecified cervical region M50.30 ; Headache, unspecified R51.9 and Fusion of spine, cervical region M43.22 [facility] [address] [facility] [place] [address] 03/11/2025 Sadia Sanford Cervicalgia M54.2 ; Segmental and somatic dysfunction of cervical region M99.01 ; Dorsalgia, unspecified M54.9 and Fusion of spine, cervical region M43.22 [facility] [address] [place] [address] 04/03/2025 Patel Arias Fusion of spine, cervical region M43.22 ; Pain in thoracic spine M54.6 ; Cervicalgia M54.2 ; Headache, unspecified R51.9 ; Dorsalgia, unspecified M54.9 and Other cervical disc degeneration, unspecified cervical region M50.30 [facility] [address] [place] [address] 03/27/2025 Tk Etienne [facility] [address] [place] [address] [address] [place] [address] 06/03/2024 Tk Etienne [facility] [address] [facility] [place] [address] 08/20/2024 Patel Arias [facility] [address] [facility] [address] [place] [address] 09/09/2024 Tk Etienne [facility] [address] [place] [address] 09/12/2024 Tk Etienne Other chronic pain G89.29 [facility] [address] [place] [address] 10/22/2024 Tk Etienne [facility] [address] [place] [address] 11/14/2024 Tk Etienne [facility] [address] [place] [address] 11/29/2024 Tk Etienne [facility] [address] [place] [address] 12/19/2024 Tk Etienne [facility] [address] [place] [address] 01/17/2025 Tk Etienne Assessments Encounter Date Diagnosis (ICD Code) Assessment Notes Treatment Notes Treatment Clinical Notes Section Notes 06/27/2024 Segmental and somatic dysfunction of cervical region (ICD-10 - M99.01) 1. Please see the highly detailed HPI section of this report for a review of previous treatment. 2. Michelle did undergo a C5-C7 ACDF procedure with Dr. Tejeda of [facility] on April 24, 2024. This puts Michelle at 9 weeks postoperative at this time. She is here for postoperative therapy. Right now she would be an our phase 1 protocol, though at 11 weeks, if there are no complications, we can advance to phase II. We can then add cervical extension MedX work. We do not typically use the cervical rotation piece of MedX equipment until 6 months, or more. 3. Michelle is enjoying a very good outcome so far from her surgery. Symptoms which were severe such as neck pain, cervicogenic headache, right-sided arm cervical radiculopathy, and scapulothoracic pain are all improving. 4. Michelle remains an employee of [employer]. Currently Dr. Tejeda has Michelle off work at least until July 25 when they meet again. 5. I believe Michelle is an excellent candidate for the type of treatment available here at [facility]. I believe she will benefit from core and deep core muscle strength building to support the spine. We will utilize our MedX equipment to isolate on critical muscle groups to achieve, first, muscle re-education, recruitment and activation, and then strength. Range of motion and strength will be measured objectively, and the patient will work towards resistance goals calculated for them by the therapists. As noted above, we have 3 different protocols depending upon the timeline following fusion surgery. 6. Both physical therapists and occupational therapists will have input into developing the patient's plan of care. This will be an active biopsychosocial care approach. In some cases, we will utilize a cognitive-behavio ral coaching emphasis. 7. In addition to strength building during appointment times, the patient will be provided a home exercise progression tailored to their needs. The goal will be to further improve functional mobility, strength, endurance and in some cases balance. The need for an aftercare exercise program will be addressed to help the patient maintain benefits gained during their course of treatment. 8. Today's evaluation occupied a full 40 minutes altogether including time spent preparing to see the patient and then providing this documentation. Prior to seeing the patient I did review previous office visit notes, therapy notes, exercise data, and imaging. We did accommodate a worker/QRC/physic tavo meeting. Other program topics and elements may include: 1. Instruction in body mechanics, ergonomics, and functional training. 2. Pain neuroscience. 3. Sleep and diet. 4. Non-pharmacologic pain management. 5. Manual therapy techniques including self-care. 6. Meditation techniques such as conscious napping. 06/27/2024 Cervicalgia (ICD-10 - M54.2) 1. Please see the highly detailed HPI section of this report for a review of previous treatment. 2. Michelle did undergo a C5-C7 ACDF procedure with Dr. Tejeda of [facility] on April 24, 2024. This puts Michelle at 9 weeks postoperative at this time. She is here for postoperative therapy. Right now she would be an our phase 1 protocol, though at 11 weeks, if there are no complications, we can advance to phase II. We can then add cervical extension MedX work. We do not typically use the cervical rotation piece of MedX equipment until 6 months, or more. 3. Michelle is enjoying a very good outcome so far from her surgery. Symptoms which were severe such as neck pain, cervicogenic headache, right-sided arm cervical radiculopathy, and scapulothoracic pain are all improving. 4. Michelle remains an employee of [employer]. Currently Dr. Tejeda has Michelle off work at least until July 25 when they meet again. 5. I believe Michelle is an excellent candidate for the type of treatment available here at [facility]. I believe she will benefit from core and deep core muscle strength building to support the spine. We will utilize our MedX equipment to isolate on critical muscle groups to achieve, first, muscle re-education, recruitment and activation, and then strength. Range of motion and strength will be measured objectively, and the patient will work towards resistance goals calculated for them by the therapists. As noted above, we have 3 different protocols depending upon the timeline following fusion surgery. 6. Both physical therapists and occupational therapists will have input into developing the patient's plan of care. This will be an active biopsychosocial care approach. In some cases, we will utilize a cognitive-behavio ral coaching emphasis. 7. In addition to strength building during appointment times, the patient will be provided a home exercise progression tailored to their needs. The goal will be to further improve functional mobility, strength, endurance and in some cases balance. The need for an aftercare exercise program will be addressed to help the patient maintain benefits gained during their course of treatment. 8. Today's evaluation occupied a full 40 minutes altogether including time spent preparing to see the patient and then providing this documentation. Prior to seeing the patient I did review previous office visit notes, therapy notes, exercise data, and imaging. We did accommodate a worker/QRC/physic tavo meeting. Other program topics and elements may include: 1. Instruction in body mechanics, ergonomics, and functional training. 2. Pain neuroscience. 3. Sleep and diet. 4. Non-pharmacologic pain management. 5. Manual therapy techniques including self-care. 6. Meditation techniques such as conscious napping. 07/11/2024 Segmental and somatic dysfunction of cervical region (ICD-10 - M99.01) 07/11/2024 Cervicalgia (ICD-10 - M54.2) 07/17/2024 Cervicalgia (ICD-10 - M54.2) 07/17/2024 Segmental and somatic dysfunction of cervical region (ICD-10 - M99.01) 07/24/2024 Cervicalgia (ICD-10 - M54.2) 07/26/2024 Cervicalgia (ICD-10 - M54.2) 07/29/2024 Cervicalgia (ICD-10 - M54.2) 08/06/2024 Cervicalgia (ICD-10 - M54.2) 08/08/2024 Cervicalgia (ICD-10 - M54.2) 08/08/2024 Cervicalgia (ICD-10 - M54.2) 1. I have the following workability recommendations: A. 10-pounds lifting maximum. B. May work up to 2 hours per shift. C. Please allow to sit or stand as needed. D. Avoid reaching and lifting above shoulder height. 2. We will reevaluate this recommendation in about 4 weeks. 3. The patient is making tremendous progress after her 2-level surgical fusion surgery on April 24, 2024. Symptoms have declined following the surgery. We are in a strength building rehabilitation process. I'm expecting a good result, ultimately. Bone is still growing at this stage. Full rehabilitation is still going to require months. The patient is currently at 15 weeks postoperative (nearly 4 months). Beginning at 6 months postoperative we can consider adding cervical rotation MedX work. We will likely be able to do so. I recommend we see the patient on a once per week basis up until the 6 month ryder at which point we would resume therapy at twice per week. 4. The patient did see her surgeon, Dr. Tejeda, on July 25, 2024. CT scanning of the cervical spine was obtained. There is already vigorous bone growth occurring at the fusion surgery site. The patient is using a bone growth stimulator about 4 hours per day. She meets with Dr. Tejeda again on October 25, 2024. He advised the patient that we can begin providing workability recommendations. She has been off work up to this point. The patient is still an employee of [employer]. 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 5. The patient is being seen at [facility] in [place], [place]. 6. Today's evaluation occupied a full 40 minutes altogether including time spent preparing to see the patient and then providing this documentation. Prior to seeing the patient I did review office visit notes, therapy notes, exercise data, and previous imaging. We did accommodate a worker/QRC/physic tavo meeting. I did provide the worker and her employer with a detailed work ability letter 08/12/2024 Cervicalgia (ICD-10 - M54.2) 08/20/2024 Cervicalgia (ICD-10 - M54.2) 08/29/2024 Cervicalgia (ICD-10 - M54.2) 09/12/2024 Cervicalgia (ICD-10 - M54.2) 1. Today I had the opportunity to evaluate this patient once. I have the following work ability recommendations: A. 15-pounds lifting maximum. This represents a relaxation of the previous restriction. B. 2-hours of work per shift. C. Avoid reaching over shoulder height. D. Please allow to sit or stand as needed. 2. The patient continues to make progress following her 2-level cervical spine fusion surgery performed on April 24, 2024. We are engaged in therapy 1 time per week. She is in our phase II post cervical spine fusion protocol. This allows for use of the cervical extension piece of MedX equipment, but not rotation. Beginning October 10, 2024, she can transition to our phase 3 protocol, adding rotation. 3. I recommend continuing visits at 1 time per week until October 10, 2024, then continuing therapy 2 times per week. 4. I am expecting an excellent outcome, it will just take time. Michelle has tremendous upside rehabilitation potential in terms of the strength gains available to her. We do have to go slowly given the underlying condition and surgery. 5. I recommend Michelle return in approximately 4 weeks for reevaluation. 6. Today I did renew the patient's Naprosyn prescription. I also prescribed in electric stimulation unit. Those treatments have been helpful in therapy to control symptoms. I think the patient will definitely benefit from having a unit she could continue to use more frequently. 7. Today's evaluation occupied a full 40 minutes altogether including time spent preparing to see the patient and then providing this documentation. Prior to seeing the patient I did review previous office visit notes, therapy notes, exercise data, and imaging. We did accommodate a worker/QRC/physic tavo meeting. I did provide the worker and her employer with a work ability letter. 09/12/2024 Other chronic pain (ICD-10 - G89.29) 09/13/2024 Cervicalgia (ICD-10 - M54.2) 09/25/2024 Cervicalgia (ICD-10 - M54.2) 09/30/2024 Cervicalgia (ICD-10 - M54.2) 10/11/2024 Cervicalgia (ICD-10 - M54.2) 10/17/2024 Cervicalgia (ICD-10 - M54.2) 1. The patient has completed 14 visits of therapy since her surgical date on April 24, 2024. Currently she is our phase II protocol after fusion surgery. I recommend we can advance to phase III immediately. This allows us to elevate resistance goals for cervical extension, and add cervical rotation. 2. We have been recommending that Michelle can work light duty. Currently her employer is not providing her with hours. It remains our ultimate goal to see Michelle return to work full duty at [employer]. 3. Things are going well overall. Michelle's symptom levels are markedly reduced from her presurgical status. She is engaged in therapy and making progress. I anticipate we will be able to relax restrictions somewhat in the near future. 4. I have the following work ability recommendations: A. 20-pounds lifting maximum. This represents another relaxation of previous restrictions. B. 2-hours of work per shift. We would like to see the worker well-established at 2 hours per day before increasing hours. Our goal is still to see the worker released to full duty in the future. C. Please allow to sit or stand as needed. 5. Return to clinic in approximately 4 weeks. 6. Today's evaluation occupied a full 40 minutes altogether including time spent preparing to see the patient and then providing this documentation. Prior to seeing the patient I did review previous office visit notes, therapy notes, exercise data, and imaging. We did accommodate a worker/QRC/physic tavo meeting. I did provide the worker and her employer with a detailed work ability letter. 10/17/2024 Dorsalgia, unspecified (ICD-10 - M54.9) 1. The patient has completed 14 visits of therapy since her surgical date on April 24, 2024. Currently she is our phase II protocol after fusion surgery. I recommend we can advance to phase III immediately. This allows us to elevate resistance goals for cervical extension, and add cervical rotation. 2. We have been recommending that Michelle can work light duty. Currently her employer is not providing her with hours. It remains our ultimate goal to see Michelle return to work full duty at [employer]. 3. Things are going well overall. Michelle's symptom levels are markedly reduced from her presurgical status. She is engaged in therapy and making progress. I anticipate we will be able to relax restrictions somewhat in the near future. 4. I have the following work ability recommendations: A. 20-pounds lifting maximum. This represents another relaxation of previous restrictions. B. 2-hours of work per shift. We would like to see the worker well-established at 2 hours per day before increasing hours. Our goal is still to see the worker released to full duty in the future. C. Please allow to sit or stand as needed. 5. Return to clinic in approximately 4 weeks. 6. Today's evaluation occupied a full 40 minutes altogether including time spent preparing to see the patient and then providing this documentation. Prior to seeing the patient I did review previous office visit notes, therapy notes, exercise data, and imaging. We did accommodate a worker/QRC/physic tavo meeting. I did provide the worker and her employer with a detailed work ability letter. 10/17/2024 Cervicalgia (ICD-10 - M54.2) 10/22/2024 Cervicalgia (ICD-10 - M54.2) 10/29/2024 Cervicalgia (ICD-10 - M54.2) 10/31/2024 Cervicalgia (ICD-10 - M54.2) 11/05/2024 Cervicalgia (ICD-10 - M54.2) 11/12/2024 Cervicalgia (ICD-10 - M54.2) 11/14/2024 Fusion of spine, cervical region (ICD-10 - M43.22) 1. The patient is experiencing what appears to be a very good result from her C5-[address] Tejeda dating to April 24, 2024. Given her progress, I am optimistic that she is going to eventually enjoy an excellent result, returning to full employment. 2. The employer has been unresponsive to contacts regarding what Michelle's work restrictions would need to be in order for them to offer her light duty. Today we are relaxing her restrictions once more reflecting her improvement. 3. I have the following work ability recommendations: A. May work up to 4 hours per day. B. 20- pound lifting maximum C. No overhead work. 4. I recommend the patient return to see me in about 6 weeks. 5. The patient has been making very good progress, objectively measured. There remains a good deal of additional upside strength building potential. 6. We have 5 additional visits of strength building therapy approved. For the patient to achieve her strength goals I recommend the approval of up to 10 additional visits. I don't anticipate needing more visits beyond that. Our goal remains a return to full duty. I believe these visits will be necessary to achieve that goal. Given the underlying diagnosis of cervical fusion, we were only recently able to add use of our cervical rotation piece of MedX equipment. 7. Today's evaluation occupied a full 40 minutes altogether including time spent preparing to see the patient and then providing this documentation. Prior to seeing the patient I did review previous office visit notes, therapy notes, exercise data, and imaging. We accommodated a worker/QRC/physic tavo meeting. We discussed work ability, and I did provide the worker and her employer with a detailed work ability letter. 11/14/2024 Cervicalgia (ICD-10 - M54.2) 1. The patient is experiencing what appears to be a very good result from her C5-[address] Tejeda dating to April 24, 2024. Given her progress, I am optimistic that she is going to eventually enjoy an excellent result, returning to full employment. 2. The employer has been unresponsive to contacts regarding what Michelle's work restrictions would need to be in order for them to offer her light duty. Today we are relaxing her restrictions once more reflecting her improvement. 3. I have the following work ability recommendations: A. May work up to 4 hours per day. B. 20- pound lifting maximum C. No overhead work. 4. I recommend the patient return to see me in about 6 weeks. 5. The patient has been making very good progress, objectively measured. There remains a good deal of additional upside strength building potential. 6. We have 5 additional visits of strength building therapy approved. For the patient to achieve her strength goals I recommend the approval of up to 10 additional visits. I don't anticipate needing more visits beyond that. Our goal remains a return to full duty. I believe these visits will be necessary to achieve that goal. Given the underlying diagnosis of cervical fusion, we were only recently able to add use of our cervical rotation piece of MedX equipment. 7. Today's evaluation occupied a full 40 minutes altogether including time spent preparing to see the patient and then providing this documentation. Prior to seeing the patient I did review previous office visit notes, therapy notes, exercise data, and imaging. We accommodated a worker/QRC/physic tavo meeting. We discussed work ability, and I did provide the worker and her employer with a detailed work ability letter. 11/14/2024 Cervicalgia (ICD-10 - M54.2) 11/19/2024 Cervicalgia (ICD-10 - M54.2) 11/26/2024 Cervicalgia (ICD-10 - M54.2) 11/28/2024 Cervicalgia (ICD-10 - M54.2) 12/03/2024 Cervicalgia (ICD-10 - M54.2) 12/10/2024 Cervicalgia (ICD-10 - M54.2) 12/17/2024 Cervicalgia (ICD-10 - M54.2) 12/23/2024 Fusion of spine, cervical region (ICD-10 - M43.22) The pt. continues to make great progress in therapy. She has 5 more visits approved. We will likely use all 5 helping her get to max strength. Torso rotation strength is lagging given we did not start it until she reached 6 months post-op from her cervical fusion surgery. The pt. has made a significant effort to find work. 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 I endorse this. Today we did relax the pts. restrictions considerably. Re-evaluate in 4-6 weeks. Today's evaluation occupied a full 40 minutes altogether including time spent preparing to see the patient and providing this documentation. Prior to seeing the patient I did review outside medical records including imaging, office visit notes, exercise data, therapy notes, and consultation notes. In addition, we accommodated a worker/QRC/physic tavo meeting. We also provided the worker and her employer with a detailed work ability letter. 12/23/2024 Cervicalgia (ICD-10 - M54.2) The pt. continues to make great progress in therapy. She has 5 more visits approved. We will likely use all 5 helping her get to max strength. Torso rotation strength is lagging given we did not start it until she reached 6 months post-op from her cervical fusion surgery. The pt. has made a significant effort to find work. 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 I endorse this. Today we did relax the pts. restrictions considerably. Re-evaluate in 4-6 weeks. Today's evaluation occupied a full 40 minutes altogether including time spent preparing to see the patient and providing this documentation. Prior to seeing the patient I did review outside medical records including imaging, office visit notes, exercise data, therapy notes, and consultation notes. In addition, we accommodated a worker/QRC/physic tavo meeting. We also provided the worker and her employer with a detailed work ability letter. 12/24/2024 Cervicalgia (ICD-10 - M54.2) 01/10/2025 Cervicalgia (ICD-10 - M54.2) 01/14/2025 Cervicalgia (ICD-10 - M54.2) 01/20/2025 Fusion of spine, cervical region (ICD-10 - M43.22) The patient returns for re-evaluation after 30 visits in rehabilitation. They are making strength gains, objectively measured, in the MedX equipment. They are participating in their home exercise program. The patient is enjoying overall symptom relief along with functional improvements. However they continue to have symptoms and functional deficits. A recent increase in thoracic pain led to Dr. Tejeda ordering thoracic spine MRI The exercise data shows there are significant additional strength gains available to the patient. This represents additional upside rehabilitation potential. The patient would like to continue to work towards their resistance goals, and I strongly recommend it. The pt is making a successful transition to a new job. She will benefit from cutting back on her hours modestly temporarily. I recommend 4 days of work per week, with only up to 2 days in a row. I anticipate an ultimate return to full duty without restrictions. Her new job appears to be a good fit. I believe she will have a successful course of rehabilitation, and recovery from a significant surgery. Today's evaluation occupied a full 40 minutes altogether including time spent preparing to see the patient and providing this documentation. Prior to seeing the patient I did review outside medical records including imaging, office visit notes, exercise data, therapy notes. In addition, we accommodated a worker/QRC/physic tavo meeting. We also provided the worker and her employer with a detailed work ability letter. 01/20/2025 Cervicalgia (ICD-10 - M54.2) The patient returns for re-evaluation after 30 visits in rehabilitation. They are making strength gains, objectively measured, in the MedX equipment. They are participating in their home exercise program. The patient is enjoying overall symptom relief along with functional improvements. However they continue to have symptoms and functional deficits. A recent increase in thoracic pain led to Dr. Tejeda ordering thoracic spine MRI The exercise data shows there are significant additional strength gains available to the patient. This represents additional upside rehabilitation potential. The patient would like to continue to work towards their resistance goals, and I strongly recommend it. The pt is making a successful transition to a new job. She will benefit from cutting back on her hours modestly temporarily. I recommend 4 days of work per week, with only up to 2 days in a row. I anticipate an ultimate return to full duty without restrictions. Her new job appears to be a good fit. I believe she will have a successful course of rehabilitation, and recovery from a significant surgery. Today's evaluation occupied a full 40 minutes altogether including time spent preparing to see the patient and providing this documentation. Prior to seeing the patient I did review outside medical records including imaging, office visit notes, exercise data, therapy notes. In addition, we accommodated a worker/QRC/physic tavo meeting. We also provided the worker and her employer with a detailed work ability letter. 01/21/2025 Cervicalgia (ICD-10 - M54.2) 01/28/2025 Cervicalgia (ICD-10 - M54.2) 02/03/2025 Fusion of spine, cervical region (ICD-10 - M43.22) The pt is suffering from a set-back in terms of suffering increased symptoms in the scapular region between the shoulder blades. This comes on the heels of consistent and impressive improvements since her fusion surgery. The pt has been referred by Dr. Tejeda's staff for a mid thoracic EDDIE. The pt will be removed from work for one week and then have her work ability re-evaluated. We will add our 2 torso rotation and extension machine to treatment and continue at 2 times per week. Today's evaluation occupied a full 35 minutes altogether including time spent preparing to see the patient and providing this documentation. Prior to seeing the patient I did review outside medical records including imaging, office visit notes, exercise data, therapy notes, and consultation notes. In addition, we accommodated a worker/QRC/physic atvo meeting. We also provided the worker and their employer with a work ability letter. 02/03/2025 Cervicalgia (ICD-10 - M54.2) The pt is suffering from a set-back in terms of suffering increased symptoms in the scapular region between the shoulder blades. This comes on the heels of consistent and impressive improvements since her fusion surgery. The pt has been referred by Dr. Tejeda's staff for a mid thoracic EDDIE. The pt will be removed from work for one week and then have her work ability re-evaluated. We will add our 2 torso rotation and extension machine to treatment and continue at 2 times per week. Today's evaluation occupied a full 35 minutes altogether including time spent preparing to see the patient and providing this documentation. Prior to seeing the patient I did review outside medical records including imaging, office visit notes, exercise data, therapy notes, and consultation notes. In addition, we accommodated a worker/QRC/physic tavo meeting. We also provided the worker and their employer with a work ability letter. 02/04/2025 Cervicalgia (ICD-10 - M54.2) 02/11/2025 Cervicalgia (ICD-10 - M54.2) 02/13/2025 Other cervical disc degeneration, unspecified cervical region (ICD-10 - M50.30) The pt continues to suffer high levels of symptoms. I recommend she continue to be off work over the next 3 weeks. The pt was unable to recieve the thoracic EDDIE ordered by Dr. Tejeda due to high blood sugar. It has been rescheduled. Today's evaluation occupied a full 35 minutes altogether including time spent preparing to see the patient and providing this documentation. Prior to seeing the patient I did review outside medical records including imaging, office visit notes, exercise data, therapy notes, and consultation notes. 02/13/2025 Cervicalgia (ICD-10 - M54.2) The pt continues to suffer high levels of symptoms. I recommend she continue to be off work over the next 3 weeks. The pt was unable to recieve the thoracic EDDIE ordered by Dr. Tejeda due to high blood sugar. It has been rescheduled. Today's evaluation occupied a full 35 minutes altogether including time spent preparing to see the patient and providing this documentation. Prior to seeing the patient I did review outside medical records including imaging, office visit notes, exercise data, therapy notes, and consultation notes. 02/14/2025 Cervicalgia (ICD-10 - M54.2) 02/18/2025 Cervicalgia (ICD-10 - M54.2) 02/25/2025 Cervicalgia (ICD-10 - M54.2) 02/27/2025 Cervicalgia (ICD-10 - M54.2) Michelle's last therapy visit is currently scheduled for 03/11/25. Recent T78 EDDIE at [facility], ordered by Dr. Tejeda/Ximena Deshpande PAC. No relief yet. Consider TPI's. Medication management with Dr. Tejeda. Currently methocarbamol and naproxyn. Work restrictions were formulated today. See [place]. The pt will enter a job search process. RTC 4-6 weeks. Today's evaluation occupied a full 40 minutes altogether including time spent preparing to see the patient and providing this documentation. Prior to seeing the patient I did review outside medical records including imaging, office visit notes, exercise data, therapy notes, and consultation notes. In addition, we accommodated a worker/QRC/physic tavo meeting. We also provided the worker and their employer with a detailed work ability letter. 02/27/2025 Dorsalgia, unspecified (ICD-10 - M54.9) Michelle's last therapy visit is currently scheduled for 03/11/25. Recent T78 EDDIE at [facility], ordered by Dr. Tejeda/Ximena Deshpande PAC. No relief yet. Consider TPI's. Medication management with Dr. Tejeda. Currently methocarbamol and naproxyn. Work restrictions were formulated today. [place]. The pt will enter a job search process. RTC 4-6 weeks. Today's evaluation occupied a full 40 minutes altogether including time spent preparing to see the patient and providing this documentation. Prior to seeing the patient I did review outside medical records including imaging, office visit notes, exercise data, therapy notes, and consultation notes. In addition, we accommodated a worker/QRC/physic tavo meeting. We also provided the worker and their employer with a detailed work ability letter. 03/11/2025 Cervicalgia (ICD-10 - M54.2) 04/03/2025 Fusion of spine, cervical region (ICD-10 [...] consultation notes. In addition, we accommodated a worker/QRC/physic tavo meeting. We also provided the worker and [...] consultation notes. In addition, we accommodated a worker/QRC/physic tavo meeting. We also provided the worker and their employer with a detailed work ability letter. 02/27/2025 Other cervical disc degeneration, unspecified cervical region (ICD-10 - M50.30) Crystal's last therapy visit is currently scheduled for 03/11/25. Recent T78 EDDIE at [facility], ordered by Dr. Tejeda/Ximena Deshpande PAC. No relief yet. Consider TPI's. Medication management with Dr. Tejeda. Currently methocarbamol and naproxyn. Work restrictions were formulated today. [place]. The pt will enter a job search process. RTC 4-6 weeks. Today's evaluation occupied a full 40 minutes altogether including time spent preparing to see the patient and providing this documentation. Prior to seeing the patient I did review outside medical records including imaging, office visit notes, exercise data, therapy notes, and consultation notes. In addition, we accommodated a worker/QRC/physic tavo meeting. We also provided the worker and their employer with a detailed work ability letter. 03/11/2025 Segmental and somatic dysfunction of cervical region (ICD-10 - M99.01) 04/03/2025 Cervicalgia (ICD-10 - M54.2) See the [...] consultation notes. In addition, we accommodated a worker/QRC/physic tavo meeting. We also provided the worker and their employer with a detailed work ability letter. 02/25/2025 Segmental and somatic dysfunction of cervical region (ICD-10 - M99.01) 02/18/2025 Segmental and somatic dysfunction of cervical region (ICD-10 - M99.01) 02/14/2025 Segmental and somatic dysfunction of cervical region (ICD-10 - M99.01) 02/11/2025 Segmental and somatic dysfunction of cervical region (ICD-10 - M99.01) 02/13/2025 Fusion of spine, cervical region (ICD-10 - M43.22) The pt continues to suffer high levels of symptoms. I recommend she continue to be off work over the next 3 weeks. The pt was unable to recieve the thoracic EDDIE ordered by Dr. Tejeda due to high blood sugar. It has been rescheduled. Today's evaluation occupied a full 35 minutes altogether including time spent preparing to see the patient and providing this documentation. Prior to seeing the patient I did review outside medical records including imaging, office visit notes, exercise data, therapy notes, and consultation notes. 02/04/2025 Segmental and somatic dysfunction of cervical region (ICD-10 - M99.01) 02/03/2025 Other cervical disc degeneration, unspecified cervical region (ICD-10 - M50.30) The pt is suffering from a set-back in terms of suffering increased symptoms in the scapular region between the shoulder blades. This comes on the heels of consistent and impressive improvements since her fusion surgery. The pt has been referred by Dr. Tejeda's staff for a mid thoracic EDDIE. The pt will be removed from work for one week and then have her work ability re-evaluated. We will add our 2 torso rotation and extension machine to treatment and continue at 2 times per week. Today's evaluation occupied a full 35 minutes altogether including time spent preparing to see the patient and providing this documentation. Prior to seeing the patient I did review outside medical records including imaging, office visit notes, exercise data, therapy notes, and consultation notes. In addition, we accommodated a worker/QRC/physic tavo meeting. We also provided the worker and their employer with a work ability letter. 01/14/2025 Segmental and somatic dysfunction of cervical region (ICD-10 - M99.01) 01/28/2025 Segmental and somatic dysfunction of cervical region (ICD-10 - M99.01) 01/21/2025 Segmental and somatic dysfunction of cervical region (ICD-10 - M99.01) 01/20/2025 Dorsalgia, unspecified (ICD-10 - M54.9) The patient returns for re-evaluation after 30 visits in rehabilitation. They are making strength gains, objectively measured, in the MedX equipment. They are participating in their home exercise program. The patient is enjoying overall symptom relief along with functional improvements. However they continue to have symptoms and functional deficits. A recent increase in thoracic pain led to Dr. Tejeda ordering thoracic spine MRI The exercise data shows there are significant additional strength gains available to the patient. This represents additional upside rehabilitation potential. The patient would like to continue to work towards their resistance goals, and I strongly recommend it. The pt is making a successful transition to a new job. She will benefit from cutting back on her hours modestly temporarily. I recommend 4 days of work per week, with only up to 2 days in a row. I anticipate an ultimate return to full duty without restrictions. Her new job appears to be a good fit. I believe she will have a successful course of rehabilitation, and recovery from a significant surgery. Today's evaluation occupied a full 40 minutes altogether including time spent preparing to see the patient and providing this documentation. Prior to seeing the patient I did review outside medical records including imaging, office visit notes, exercise data, therapy notes. In addition, we accommodated a worker/QRC/physic tavo meeting. We also provided the worker and her employer with a detailed work ability letter. 01/10/2025 Segmental and somatic dysfunction of cervical region (ICD-10 - M99.01) 12/24/2024 Segmental and somatic dysfunction of cervical region (ICD-10 - M99.01) 12/17/2024 Segmental and somatic dysfunction of cervical region (ICD-10 - M99.01) 12/23/2024 Dorsalgia, unspecified (ICD-10 - M54.9) The pt. continues to make great progress in therapy. She has 5 more visits approved. We will likely use all 5 helping her get to max strength. Torso rotation strength is lagging given we did not start it until she reached 6 months post-op from her cervical fusion surgery. The pt. has made a significant effort to find work. 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 I endorse this. Today we did relax the pts. restrictions considerably. Re-evaluate in 4-6 weeks. Today's evaluation occupied a full 40 minutes altogether including time spent preparing to see the patient and providing this documentation. Prior to seeing the patient I did review outside medical records including imaging, office visit notes, exercise data, therapy notes, and consultation notes. In addition, we accommodated a worker/QRC/physic tavo meeting. We also provided the worker and her employer with a detailed work ability letter. 12/10/2024 Segmental and somatic dysfunction of cervical region (ICD-10 - M99.01) 12/03/2024 Segmental and somatic dysfunction of cervical region (ICD-10 - M99.01) 11/28/2024 Segmental and somatic dysfunction of cervical region (ICD-10 - M99.01) 11/26/2024 Segmental and somatic dysfunction of cervical region (ICD-10 - M99.01) 11/19/2024 Segmental and somatic dysfunction of cervical region (ICD-10 - M99.01) 11/14/2024 Segmental and somatic dysfunction of cervical region (ICD-10 - M99.01) 11/14/2024 Dorsalgia, unspecified (ICD-10 - M54.9) 1. The patient is experiencing what appears to be a very good result from her C5-[address] Tejeda dating to April 24, 2024. Given her progress, I am optimistic that she is going to eventually enjoy an excellent result, returning to full employment. 2. The employer has been unresponsive to contacts regarding what Michelle's work restrictions would need to be in order for them to offer her light duty. Today we are relaxing her restrictions once more reflecting her improvement. 3. I have the following work ability recommendations: A. May work up to 4 hours per day. B. 20- pound lifting maximum C. No overhead work. 4. I recommend the patient return to see me in about 6 weeks. 5. The patient has been making very good progress, objectively measured. There remains a good deal of additional upside strength building potential. 6. We have 5 additional visits of strength building therapy approved. For the patient to achieve her strength goals I recommend the approval of up to 10 additional visits. I don't anticipate needing more visits beyond that. Our goal remains a return to full duty. I believe these visits will be necessary to achieve that goal. Given the underlying diagnosis of cervical fusion, we were only recently able to add use of our cervical rotation piece of MedX equipment. 7. Today's evaluation occupied a full 40 minutes altogether including time spent preparing to see the patient and then providing this documentation. Prior to seeing the patient I did review previous office visit notes, therapy notes, exercise data, and imaging. We accommodated a worker/QRC/physic tavo meeting. We discussed work ability, and I did provide the worker and her employer with a detailed work ability letter. 11/12/2024 Segmental and somatic dysfunction of cervical region (ICD-10 - M99.01) 11/05/2024 Segmental and somatic dysfunction of cervical region (ICD-10 - M99.01) 10/31/2024 Segmental and somatic dysfunction of cervical region (ICD-10 - M99.01) 10/29/2024 Segmental and somatic dysfunction of cervical region (ICD-10 - M99.01) 10/22/2024 Segmental and somatic dysfunction of cervical region (ICD-10 - M99.01) 10/17/2024 Segmental and somatic dysfunction of cervical region (ICD-10 - M99.01) 10/17/2024 Headache, unspecified (ICD-10 - R51.9) 1. The patient has completed 14 visits of therapy since her surgical date on April 24, 2024. Currently she is our phase II protocol after fusion surgery. I recommend we can advance to phase III immediately. This allows us to elevate resistance goals for cervical extension, and add cervical rotation. 2. We have been recommending that Michelle can work light duty. Currently her employer is not providing her with hours. It remains our ultimate goal to see Michelle return to work full duty at [employer]. 3. Things are going well overall. Michelle's symptom levels are markedly reduced from her presurgical status. She is engaged in therapy and making progress. I anticipate we will be able to relax restrictions somewhat in the near future. 4. I have the following work ability recommendations: A. 20-pounds lifting maximum. This represents another relaxation of previous restrictions. B. 2-hours of work per shift. We would like to see the worker well-established at 2 hours per day before increasing hours. Our goal is still to see the worker released to full duty in the future. C. Please allow to sit or stand as needed. 5. Return to clinic in approximately 4 weeks. 6. Today's evaluation occupied a full 40 minutes altogether including time spent preparing to see the patient and then providing this documentation. Prior to seeing the patient I did review previous office visit notes, therapy notes, exercise data, and imaging. We did accommodate a worker/QRC/physic tavo meeting. I did provide the worker and her employer with a detailed work ability letter. 10/11/2024 Segmental and somatic dysfunction of cervical region (ICD-10 - M99.01) 09/30/2024 Segmental and somatic dysfunction of cervical region (ICD-10 - M99.01) 09/25/2024 Segmental and somatic dysfunction of cervical region (ICD-10 - M99.01) 09/13/2024 Segmental and somatic dysfunction of cervical region (ICD-10 - M99.01) 09/12/2024 Dorsalgia, unspecified (ICD-10 - M54.9) 1. Today I had the opportunity to evaluate this patient once. I have the following work ability recommendations: A. 15-pounds lifting maximum. This represents a relaxation of the previous restriction. B. 2-hours of work per shift. C. Avoid reaching over shoulder height. D. Please allow to sit or stand as needed. 2. The patient continues to make progress following her 2-level cervical spine fusion surgery performed on April 24, 2024. We are engaged in therapy 1 time per week. She is in our phase II post cervical spine fusion protocol. This allows for use of the cervical extension piece of MedX equipment, but not rotation. Beginning October 10, 2024, she can transition to our phase 3 protocol, adding rotation. 3. I recommend continuing visits at 1 time per week until October 10, 2024, then continuing therapy 2 times per week. 4. I am expecting an excellent outcome, it will just take time. Michelle has tremendous upside rehabilitation potential in terms of the strength gains available to her. We do have to go slowly given the underlying condition and surgery. 5. I recommend Michelle return in approximately 4 weeks for reevaluation. 6. Today I did renew the patient's Naprosyn prescription. I also prescribed in electric stimulation unit. Those treatments have been helpful in therapy to control symptoms. I think the patient will definitely benefit from having a unit she could continue to use more frequently. 7. Today's evaluation occupied a full 40 minutes altogether including time spent preparing to see the patient and then providing this documentation. Prior to seeing the patient I did review previous office visit notes, therapy notes, exercise data, and imaging. We did accommodate a worker/QRC/physic tavo meeting. I did provide the worker and her employer with a work ability letter. 08/29/2024 Segmental and somatic dysfunction of cervical region (ICD-10 - M99.01) 08/20/2024 Segmental and somatic dysfunction of cervical region (ICD-10 - M99.01) 08/12/2024 Segmental and somatic dysfunction of cervical region (ICD-10 - M99.01) 07/11/2024 Dorsalgia, unspecified (ICD-10 - M54.9) 08/08/2024 Dorsalgia, unspecified (ICD-10 - M54.9) 1. I have the following workability recommendations: A. 10-pounds lifting maximum. B. May work up to 2 hours per shift. C. Please allow to sit or stand as needed. D. Avoid reaching and lifting above shoulder height. 2. We will reevaluate this recommendation in about 4 weeks. 3. The patient is making tremendous progress after her 2-level surgical fusion surgery on April 24, 2024. Symptoms have declined following the surgery. We are in a strength building rehabilitation process. I'm expecting a good result, ultimately. Bone is still growing at this stage. Full rehabilitation is still going to require months. The patient is currently at 15 weeks postoperative (nearly 4 months). Beginning at 6 months postoperative we can consider adding cervical rotation MedX work. We will likely be able to do so. I recommend we see the patient on a once per week basis up until the 6 month ryder at which point we would resume therapy at twice per week. 4. The patient did see her surgeon, Dr. Tejeda, on July 25, 2024. CT scanning of the cervical spine was obtained. There is already vigorous bone growth occurring at the fusion surgery site. The patient is using a bone growth stimulator about 4 hours per day. She meets with Dr. Tejeda again on October 25, 2024. He advised the patient that we can begin providing workability recommendations. She has been off work up to this point. The patient is still an employee of [employer]. 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 5. The patient is being seen at [facility] in [place], [place]. 6. Today's evaluation occupied a full 40 minutes altogether including time spent preparing to see the patient and then providing this documentation. Prior to seeing the patient I did review office visit notes, therapy notes, exercise data, and previous imaging. We did accommodate a worker/QRC/physic tavo meeting. I did provide the worker and her employer with a detailed work ability letter 08/08/2024 Segmental and somatic dysfunction of cervical region (ICD-10 - M99.01) 08/06/2024 Segmental and somatic dysfunction of cervical region (ICD-10 - M99.01) 07/29/2024 Segmental and somatic dysfunction of cervical region (ICD-10 - M99.01) 07/26/2024 Segmental and somatic dysfunction of cervical region (ICD-10 - M99.01) 07/24/2024 Segmental and somatic dysfunction of cervical region (ICD-10 - M99.01) 07/17/2024 Dorsalgia, unspecified (ICD-10 - M54.9) 06/27/2024 Dorsalgia, unspecified (ICD-10 - M54.9) 1. Please see the highly detailed HPI section of this report for a review of previous treatment. 2. Michelle did undergo a C5-C7 ACDF procedure with Dr. Tejeda of [facility] on April 24, 2024. This puts Michelle at 9 weeks postoperative at this time. She is here for postoperative therapy. Right now she would be an our phase 1 protocol, though at 11 weeks, if there are no complications, we can advance to phase II. We can then add cervical extension MedX work. We do not typically use the cervical rotation piece of MedX equipment until 6 months, or more. 3. Michelle is enjoying a very good outcome so far from her surgery. Symptoms which were severe such as neck pain, cervicogenic headache, right-sided arm cervical radiculopathy, and scapulothoracic pain are all improving. 4. Michelle remains an employee of [employer]. Currently Dr. Tejeda has Michelle off work at least until July 25 when they meet again. 5. I believe Michelle is an excellent candidate for the type of treatment available here at [facility]. I believe she will benefit from core and deep core muscle strength building to support the spine. We will utilize our MedX equipment to isolate on critical muscle groups to achieve, first, muscle re-education, recruitment and activation, and then strength. Range of motion and strength will be measured objectively, and the patient will work towards resistance goals calculated for them by the therapists. As noted above, we have 3 different protocols depending upon the timeline following fusion surgery. 6. Both physical therapists and occupational therapists will have input into developing the patient's plan of care. This will be an active biopsychosocial care approach. In some cases, we will utilize a cognitive-behavio ral coaching emphasis. 7. In addition to strength building during appointment times, the patient will be provided a home exercise progression tailored to their needs. The goal will be to further improve functional mobility, strength, endurance and in some cases balance. The need for an aftercare exercise program will be addressed to help the patient maintain benefits gained during their course of treatment. 8. Today's evaluation occupied a full 40 minutes altogether including time spent preparing to see the patient and then providing this documentation. Prior to seeing the patient I did review previous office visit notes, therapy notes, exercise data, and imaging. We did accommodate a worker/QRC/physic tavo meeting. Other program topics and elements may include: 1. Instruction in body mechanics, ergonomics, and functional training. 2. Pain neuroscience. 3. Sleep and diet. 4. Non-pharmacologic pain management. 5. Manual therapy techniques including self-care. 6. Meditation techniques such as conscious napping. 06/27/2024 Fusion of spine, cervical region (ICD-10 - M43.22) 1. Please see the highly detailed HPI section of this report for a review of previous treatment. 2. Michelle did undergo a C5-C7 ACDF procedure with Dr. Tejeda of [facility] on April 24, 2024. This puts Michelle at 9 weeks postoperative at this time. She is here for postoperative therapy. Right now she would be an our phase 1 protocol, though at 11 weeks, if there are no complications, we can advance to phase II. We can then add cervical extension MedX work. We do not typically use the cervical rotation piece of MedX equipment until 6 months, or more. 3. Michelle is enjoying a very good outcome so far from her surgery. Symptoms which were severe such as neck pain, cervicogenic headache, right-sided arm cervical radiculopathy, and scapulothoracic pain are all improving. 4. Michelle remains an employee of [employer]. Currently Dr. Tejeda has Michelle off work at least until July 25 when they meet again. 5. I believe Michelle is an excellent candidate for the type of treatment available here at [facility]. I believe she will benefit from core and deep core muscle strength building to support the spine. We will utilize our MedX equipment to isolate on critical muscle groups to achieve, first, muscle re-education, recruitment and activation, and then strength. Range of motion and strength will be measured objectively, and the patient will work towards resistance goals calculated for them by the therapists. As noted above, we have 3 different protocols depending upon the timeline following fusion surgery. 6. Both physical therapists and occupational therapists will have input into developing the patient's plan of care. This will be an active biopsychosocial care approach. In some cases, we will utilize a cognitive-behavio ral coaching emphasis. 7. In addition to strength building during appointment times, the patient will be provided a home exercise progression tailored to their needs. The goal will be to further improve functional mobility, strength, endurance and in some cases balance. The need for an aftercare exercise program will be addressed to help the patient maintain benefits gained during their course of treatment. 8. Today's evaluation occupied a full 40 minutes altogether including time spent preparing to see the patient and then providing this documentation. Prior to seeing the patient I did review previous office visit notes, therapy notes, exercise data, and imaging. We did accommodate a worker/QRC/physic tavo meeting. Other program topics and elements may include: 1. Instruction in body mechanics, ergonomics, and functional training. 2. Pain neuroscience. 3. Sleep and diet. 4. Non-pharmacologic pain management. 5. Manual therapy techniques including self-care. 6. Meditation techniques such as conscious napping. 07/17/2024 Fusion of spine, cervical region (ICD-10 - M43.22) 07/11/2024 Fusion of spine, cervical region (ICD-10 - M43.22) 07/24/2024 Dorsalgia, unspecified (ICD-10 - M54.9) 07/26/2024 Dorsalgia, unspecified (ICD-10 - M54.9) 07/29/2024 Dorsalgia, unspecified (ICD-10 - M54.9) 08/06/2024 Dorsalgia, unspecified (ICD-10 - M54.9) 08/08/2024 Dorsalgia, unspecified (ICD-10 - M54.9) 08/08/2024 Headache, unspecified (ICD-10 - R51.9) 1. I have the following workability recommendations: A. 10-pounds lifting maximum. B. May work up to 2 hours per shift. C. Please allow to sit or stand as needed. D. Avoid reaching and lifting above shoulder height. 2. We will reevaluate this recommendation in about 4 weeks. 3. The patient is making tremendous progress after her 2-level surgical fusion surgery on April 24, 2024. Symptoms have declined following the surgery. We are in a strength building rehabilitation process. I'm expecting a good result, ultimately. Bone is still growing at this stage. Full rehabilitation is still going to require months. The patient is currently at 15 weeks postoperative (nearly 4 months). Beginning at 6 months postoperative we can consider adding cervical rotation MedX work. We will likely be able to do so. I recommend we see the patient on a once per week basis up until the 6 month ryder at which point we would resume therapy at twice per week. 4. The patient did see her surgeon, Dr. Tejeda, on July 25, 2024. CT scanning of the cervical spine was obtained. There is already vigorous bone growth occurring at the fusion surgery site. The patient is using a bone growth stimulator about 4 hours per day. She meets with Dr. Tejeda again on October 25, 2024. He advised the patient that we can begin providing workability recommendations. She has been off work up to this point. The patient is still an employee of [employer]. 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 5. The patient is being seen at [facility] in [place], [place]. 6. Today's evaluation occupied a full 40 minutes altogether including time spent preparing to see the patient and then providing this documentation. Prior to seeing the patient I did review office visit notes, therapy notes, exercise data, and previous imaging. We did accommodate a worker/QRC/physic tavo meeting. I did provide the worker and her employer with a detailed work ability letter 08/12/2024 Dorsalgia, unspecified (ICD-10 - M54.9) 08/20/2024 Dorsalgia, unspecified (ICD-10 - M54.9) 08/29/2024 Dorsalgia, unspecified (ICD-10 - M54.9) 09/12/2024 Headache, unspecified (ICD-10 - R51.9) 1. Today I had the opportunity to evaluate this patient once. I have the following work ability recommendations: A. 15-pounds lifting maximum. This represents a relaxation of the previous restriction. B. 2-hours of work per shift. C. Avoid reaching over shoulder height. D. Please allow to sit or stand as needed. 2. The patient continues to make progress following her 2-level cervical spine fusion surgery performed on April 24, 2024. We are engaged in therapy 1 time per week. She is in our phase II post cervical spine fusion protocol. This allows for use of the cervical extension piece of MedX equipment, but not rotation. Beginning October 10, 2024, she can transition to our phase 3 protocol, adding rotation. 3. I recommend continuing visits at 1 time per week until October 10, 2024, then continuing therapy 2 times per week. 4. I am expecting an excellent outcome, it will just take time. Michelle has tremendous upside rehabilitation potential in terms of the strength gains available to her. We do have to go slowly given the underlying condition and surgery. 5. I recommend Michelle return in approximately 4 weeks for reevaluation. 6. Today I did renew the patient's Naprosyn prescription. I also prescribed in electric stimulation unit. Those treatments have been helpful in therapy to control symptoms. I think the patient will definitely benefit from having a unit she could continue to use more frequently. 7. Today's evaluation occupied a full 40 minutes altogether including time spent preparing to see the patient and then providing this documentation. Prior to seeing the patient I did review previous office visit notes, therapy notes, exercise data, and imaging. We did accommodate a worker/QRC/physic tavo meeting. I did provide the worker and her employer with a work ability letter. 09/13/2024 Dorsalgia, unspecified (ICD-10 - M54.9) 09/25/2024 Dorsalgia, unspecified (ICD-10 - M54.9) 09/30/2024 Dorsalgia, unspecified (ICD-10 - M54.9) 10/11/2024 Dorsalgia, unspecified (ICD-10 - M54.9) 10/17/2024 Other cervical disc degeneration, unspecified cervical region (ICD-10 - M50.30) 1. The patient has completed 14 visits of therapy since her surgical date on April 24, 2024. Currently she is our phase II protocol after fusion surgery. I recommend we can advance to phase III immediately. This allows us to elevate resistance goals for cervical extension, and add cervical rotation. 2. We have been recommending that Michelle can work light duty. Currently her employer is not providing her with hours. It remains our ultimate goal to see Michelle return to work full duty at [employer]. 3. Things are going well overall. Michelle's symptom levels are markedly reduced from her presurgical status. She is engaged in therapy and making progress. I anticipate we will be able to relax restrictions somewhat in the near future. 4. I have the following work ability recommendations: A. 20-pounds lifting maximum. This represents another relaxation of previous restrictions. B. 2-hours of work per shift. We would like to see the worker well-established at 2 hours per day before increasing hours. Our goal is still to see the worker released to full duty in the future. C. Please allow to sit or stand as needed. 5. Return to clinic in approximately 4 weeks. 6. Today's evaluation occupied a full 40 minutes altogether including time spent preparing to see the patient and then providing this documentation. Prior to seeing the patient I did review previous office visit notes, therapy notes, exercise data, and imaging. We did accommodate a worker/QRC/physic tavo meeting. I did provide the worker and her employer with a detailed work ability letter. 10/17/2024 Dorsalgia, unspecified (ICD-10 - M54.9) 10/22/2024 Dorsalgia, unspecified (ICD-10 - M54.9) 10/29/2024 Dorsalgia, unspecified (ICD-10 - M54.9) 10/31/2024 Dorsalgia, unspecified (ICD-10 - M54.9) 11/05/2024 Dorsalgia, unspecified (ICD-10 - M54.9) 11/12/2024 Dorsalgia, unspecified (ICD-10 - M54.9) 11/14/2024 Headache, unspecified (ICD-10 - R51.9) 1. The patient is experiencing what appears to be a very good result from her C5-[address] Tejeda dating to April 24, 2024. Given her progress, I am optimistic that she is going to eventually enjoy an excellent result, returning to full employment. 2. The employer has been unresponsive to contacts regarding what Michelle's work restrictions would need to be in order for them to offer her light duty. Today we are relaxing her restrictions once more reflecting her improvement. 3. I have the following work ability recommendations: A. May work up to 4 hours per day. B. 20- pound lifting maximum C. No overhead work. 4. I recommend the patient return to see me in about 6 weeks. 5. The patient has been making very good progress, objectively measured. There remains a good deal of additional upside strength building potential. 6. We have 5 additional visits of strength building therapy approved. For the patient to achieve her strength goals I recommend the approval of up to 10 additional visits. I don't anticipate needing more visits beyond that. Our goal remains a return to full duty. I believe these visits will be necessary to achieve that goal. Given the underlying diagnosis of cervical fusion, we were only recently able to add use of our cervical rotation piece of MedX equipment. 7. Today's evaluation occupied a full 40 minutes altogether including time spent preparing to see the patient and then providing this documentation. Prior to seeing the patient I did review previous office visit notes, therapy notes, exercise data, and imaging. We accommodated a worker/QRC/physic tavo meeting. We discussed work ability, and I did provide the worker and her employer with a detailed work ability letter. 11/19/2024 Dorsalgia, unspecified (ICD-10 - M54.9) 11/14/2024 Dorsalgia, unspecified (ICD-10 - M54.9) 11/26/2024 Dorsalgia, unspecified (ICD-10 - M54.9) 11/28/2024 Dorsalgia, unspecified (ICD-10 - M54.9) 12/03/2024 Dorsalgia, unspecified (ICD-10 - M54.9) 12/10/2024 Dorsalgia, unspecified (ICD-10 - M54.9) 12/17/2024 Dorsalgia, unspecified (ICD-10 - M54.9) 12/23/2024 Headache, unspecified (ICD-10 - R51.9) The pt. continues to make great progress in therapy. She has 5 more visits approved. We will likely use all 5 helping her get to max strength. Torso rotation strength is lagging given we did not start it until she reached 6 months post-op from her cervical fusion surgery. The pt. has made a significant effort to find work. 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 I endorse this. Today we did relax the pts. restrictions considerably. Re-evaluate in 4-6 weeks. Today's evaluation occupied a full 40 minutes altogether including time spent preparing to see the patient and providing this documentation. Prior to seeing the patient I did review outside medical records including imaging, office visit notes, exercise data, therapy notes, and consultation notes. In addition, we accommodated a worker/QRC/physic tavo meeting. We also provided the worker and her employer with a detailed work ability letter. 12/24/2024 Dorsalgia, unspecified (ICD-10 - M54.9) 01/10/2025 Dorsalgia, unspecified (ICD-10 - M54.9) 01/14/2025 Dorsalgia, unspecified (ICD-10 - M54.9) 01/20/2025 Headache, unspecified (ICD-10 - R51.9) The patient returns for re-evaluation after 30 visits in rehabilitation. They are making strength gains, objectively measured, in the MedX equipment. They are participating in their home exercise program. The patient is enjoying overall symptom relief along with functional improvements. However they continue to have symptoms and functional deficits. A recent increase in thoracic pain led to Dr. Tejeda ordering thoracic spine MRI The exercise data shows there are significant additional strength gains available to the patient. This represents additional upside rehabilitation potential. The patient would like to continue to work towards their resistance goals, and I strongly recommend it. The pt is making a successful transition to a new job. She will benefit from cutting back on her hours modestly temporarily. I recommend 4 days of work per week, with only up to 2 days in a row. I anticipate an ultimate return to full duty without restrictions. Her new job appears to be a good fit. I believe she will have a successful course of rehabilitation, and recovery from a significant surgery. Today's evaluation occupied a full 40 minutes altogether including time spent preparing to see the patient and providing this documentation. Prior to seeing the patient I did review outside medical records including imaging, office visit notes, exercise data, therapy notes. In addition, we accommodated a worker/QRC/physic tavo meeting. We also provided the worker and her employer with a detailed work ability letter. 01/21/2025 Dorsalgia, unspecified (ICD-10 - M54.9) 01/28/2025 Dorsalgia, unspecified (ICD-10 - M54.9) 02/03/2025 Dorsalgia, unspecified (ICD-10 - M54.9) The pt is suffering from a set-back in terms of suffering increased symptoms in the scapular region between the shoulder blades. This comes on the heels of consistent and impressive improvements since her fusion surgery. The pt has been referred by Dr. Tejeda's staff for a mid thoracic EDDIE. The pt will be removed from work for one week and then have her work ability re-evaluated. We will add our 2 torso rotation and extension machine to treatment and continue at 2 times per week. Today's evaluation occupied a full 35 minutes altogether including time spent preparing to see the patient and providing this documentation. Prior to seeing the patient I did review outside medical records including imaging, office visit notes, exercise data, therapy notes, and consultation notes. In addition, we accommodated a worker/QRC/physic tavo meeting. We also provided the worker and their employer with a work ability letter. 02/04/2025 Dorsalgia, unspecified (ICD-10 - M54.9) 02/11/2025 Dorsalgia, unspecified (ICD-10 - M54.9) 02/13/2025 Dorsalgia, unspecified (ICD-10 - M54.9) The pt continues to suffer high levels of symptoms. I recommend she continue to be off work over the next 3 weeks. The pt was unable to recieve the thoracic EDDIE ordered by Dr. Tejeda due to high blood sugar. It has been rescheduled. Today's evaluation occupied a full 35 minutes altogether including time spent preparing to see the patient and providing this documentation. Prior to seeing the patient I did review outside medical records including imaging, office visit notes, exercise data, therapy notes, and consultation notes. 02/14/2025 Dorsalgia, unspecified (ICD-10 - M54.9) 02/18/2025 Dorsalgia, unspecified (ICD-10 - M54.9) 02/25/2025 Dorsalgia, unspecified (ICD-10 - M54.9) 02/27/2025 Headache, unspecified (ICD-10 - R51.9) Michelle's last therapy visit is currently scheduled for 03/11/25. Recent T78 EDDIE at [facility], ordered by Dr. Tejeda/Ximena Deshpande PAC. No relief yet. Consider TPI's. Medication management with Dr. Tejeda. Currently methocarbamol and naproxyn. Work restrictions were formulated today. See [place] letter. The pt will enter a job search process. RTC 4-6 weeks. Today's evaluation occupied a full 40 minutes altogether including time spent preparing to see the patient and providing this documentation. Prior to seeing the patient I did review outside medical records including imaging, office visit notes, exercise data, therapy notes, and consultation notes. In addition, we accommodated a worker/QRC/physic tavo meeting. We also provided the worker and [...] consultation notes. In addition, we accommodated a worker/QRC/physic tavo meeting. We also provided the worker and their employer with a detailed work ability letter. 03/11/2025 Dorsalgia, unspecified (ICD-10 - M54.9) 04/03/2025 Dorsalgia, unspecified (ICD-10 - M54.9) See [...] consultation notes. In addition, we accommodated a worker/QRC/physic tavo meeting. We also provided the worker and their employer with a detailed work ability letter. 03/11/2025 Fusion of spine, cervical region (ICD-10 - M43.22) 02/27/2025 Fusion of spine, cervical region (ICD-10 - M43.22) Michelle's last therapy visit is currently scheduled for 03/11/25. Recent T78 EDDIE at [facility], ordered by Dr. Tejeda/Ximena Deshpande PAC. No relief yet. Consider TPI's. Medication management with Dr. Tejeda. Currently methocarbamol and naproxyn. Work restrictions were formulated today. See [place] letter. The pt will enter a job search process. RTC 4-6 weeks. Today's evaluation occupied a full 40 minutes altogether including time spent preparing to see the patient and providing this documentation. Prior to seeing the patient I did review outside medical records including imaging, office visit notes, exercise data, therapy notes, and consultation notes. In addition, we accommodated a worker/QRC/physic tavo meeting. We also provided the worker and their employer with a detailed work ability letter. 02/25/2025 Fusion of spine, cervical region (ICD-10 - M43.22) 02/18/2025 Fusion of spine, cervical region (ICD-10 - M43.22) 02/13/2025 Headache, unspecified (ICD-10 - R51.9) The pt continues to suffer high levels of symptoms. I recommend she continue to be off work over the next 3 weeks. The pt was unable to recieve the thoracic EDDIE ordered by Dr. Tejeda due to high blood sugar. It has been rescheduled. Today's evaluation occupied a full 35 minutes altogether including time spent preparing to see the patient and providing this documentation. Prior to seeing the patient I did review outside medical records including imaging, office visit notes, exercise data, therapy notes, and consultation notes. 02/14/2025 Fusion of spine, cervical region (ICD-10 - M43.22) 02/11/2025 Fusion of spine, cervical region (ICD-10 - M43.22) 02/04/2025 Fusion of spine, cervical region (ICD-10 - M43.22) 01/28/2025 Fusion of spine, cervical region (ICD-10 - M43.22) 01/21/2025 Fusion of spine, cervical region (ICD-10 - M43.22) 01/14/2025 Fusion of spine, cervical region (ICD-10 - M43.22) 01/10/2025 Fusion of spine, cervical region (ICD-10 - M43.22) 12/24/2024 Fusion of spine, cervical region (ICD-10 - M43.22) 12/17/2024 Fusion of spine, cervical region (ICD-10 - M43.22) 12/10/2024 Fusion of spine, cervical region (ICD-10 - M43.22) 12/03/2024 Fusion of spine, cervical region (ICD-10 - M43.22) 11/28/2024 Fusion of spine, cervical region (ICD-10 - M43.22) 11/26/2024 Fusion of spine, cervical region (ICD-10 - M43.22) 11/19/2024 Fusion of spine, cervical region (ICD-10 - M43.22) 11/14/2024 Fusion of spine, cervical region (ICD-10 - M43.22) 11/12/2024 Fusion of spine, cervical region (ICD-10 - M43.22) 11/05/2024 Fusion of spine, cervical region (ICD-10 - M43.22) 10/31/2024 Fusion of spine, cervical region (ICD-10 - M43.22) 10/29/2024 Fusion of spine, cervical region (ICD-10 - M43.22) 10/22/2024 Fusion of spine, cervical region (ICD-10 - M43.22) 09/12/2024 Other cervical disc degeneration, unspecified cervical region (ICD-10 - M50.30) 1. Today I had the opportunity to evaluate this patient once. I have the following work ability recommendations: A. 15-pounds lifting maximum. This represents a relaxation of the previous restriction. B. 2-hours of work per shift. C. Avoid reaching over shoulder height. D. Please allow to sit or stand as needed. 2. The patient continues to make progress following her 2-level cervical spine fusion surgery performed on April 24, 2024. We are engaged in therapy 1 time per week. She is in our phase II post cervical spine fusion protocol. This allows for use of the cervical extension piece of MedX equipment, but not rotation. Beginning October 10, 2024, she can transition to our phase 3 protocol, adding rotation. 3. I recommend continuing visits at 1 time per week until October 10, 2024, then continuing therapy 2 times per week. 4. I am expecting an excellent outcome, it will just take time. Michelle has tremendous upside rehabilitation potential in terms of the strength gains available to her. We do have to go slowly given the underlying condition and surgery. 5. I recommend Michelle return in approximately 4 weeks for reevaluation. 6. Today I did renew the patient's Naprosyn prescription. I also prescribed in electric stimulation unit. Those treatments have been helpful in therapy to control symptoms. I think the patient will definitely benefit from having a unit she could continue to use more frequently. 7. Today's evaluation occupied a full 40 minutes altogether including time spent preparing to see the patient and then providing this documentation. Prior to seeing the patient I did review previous office visit notes, therapy notes, exercise data, and imaging. We did accommodate a worker/QRC/physic tavo meeting. I did provide the worker and her employer with a work ability letter. 10/17/2024 Fusion of spine, cervical region (ICD-10 - M43.22) 1. The patient has completed 14 visits of therapy since her surgical date on April 24, 2024. Currently she is our phase II protocol after fusion surgery. I recommend we can advance to phase III immediately. This allows us to elevate resistance goals for cervical extension, and add cervical rotation. 2. We have been recommending that Michelle can work light duty. Currently her employer is not providing her with hours. It remains our ultimate goal to see Michelle return to work full duty at [employer]. 3. Things are going well overall. Michelle's symptom levels are markedly reduced from her presurgical status. She is engaged in therapy and making progress. I anticipate we will be able to relax restrictions somewhat in the near future. 4. I have the following work ability recommendations: A. 20-pounds lifting maximum. This represents another relaxation of previous restrictions. B. 2-hours of work per shift. We would like to see the worker well-established at 2 hours per day before increasing hours. Our goal is still to see the worker released to full duty in the future. C. Please allow to sit or stand as needed. 5. Return to clinic in approximately 4 weeks. 6. Today's evaluation occupied a full 40 minutes altogether including time spent preparing to see the patient and then providing this documentation. Prior to seeing the patient I did review previous office visit notes, therapy notes, exercise data, and imaging. We did accommodate a worker/QRC/physic tavo meeting. I did provide the worker and her employer with a detailed work ability letter. 10/17/2024 Fusion of spine, cervical region (ICD-10 - M43.22) 10/11/2024 Fusion of spine, cervical region (ICD-10 - M43.22) 09/30/2024 Fusion of spine, cervical region (ICD-10 - M43.22) 09/25/2024 Fusion of spine, cervical region (ICD-10 - M43.22) 09/13/2024 Fusion of spine, cervical region (ICD-10 - M43.22) 08/29/2024 Fusion of spine, cervical region (ICD-10 - M43.22) 08/20/2024 Fusion of spine, cervical region (ICD-10 - M43.22) 08/08/2024 Other cervical disc degeneration, unspecified cervical region (ICD-10 - M50.30) 1. I have the following workability recommendations: A. 10-pounds lifting maximum. B. May work up to 2 hours per shift. C. Please allow to sit or stand as needed. D. Avoid reaching and lifting above shoulder height. 2. We will reevaluate this recommendation in about 4 weeks. 3. The patient is making tremendous progress after her 2-level surgical fusion surgery on April 24, 2024. Symptoms have declined following the surgery. We are in a strength building rehabilitation process. I'm expecting a good result, ultimately. Bone is still growing at this stage. Full rehabilitation is still going to require months. The patient is currently at 15 weeks postoperative (nearly 4 months). Beginning at 6 months postoperative we can consider adding cervical rotation MedX work. We will likely be able to do so. I recommend we see the patient on a once per week basis up until the 6 month ryder at which point we would resume therapy at twice per week. 4. The patient did see her surgeon, Dr. Tejeda, on July 25, 2024. CT scanning of the cervical spine was obtained. There is already vigorous bone growth occurring at the fusion surgery site. The patient is using a bone growth stimulator about 4 hours per day. She meets with Dr. Tejeda again on October 25, 2024. He advised the patient that we can begin providing workability recommendations. She has been off work up to this point. The patient is still an employee of [employer]. 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 5. The patient is being seen at [facility] in [place], [place]. 6. Today's evaluation occupied a full 40 minutes altogether including time spent preparing to see the patient and then providing this documentation. Prior to seeing the patient I did review office visit notes, therapy notes, exercise data, and previous imaging. We did accommodate a worker/QRC/physic tavo meeting. I did provide the worker and her employer with a detailed work ability letter 08/12/2024 Fusion of spine, cervical region (ICD-10 - M43.22) 08/08/2024 Fusion of spine, cervical region (ICD-10 - M43.22) 08/06/2024 Fusion of spine, cervical region (ICD-10 - M43.22) 07/29/2024 Fusion of spine, cervical region (ICD-10 - M43.22) 07/26/2024 Fusion of spine, cervical region (ICD-10 - M43.22) 07/24/2024 Fusion of spine, cervical region (ICD-10 - M43.22) 08/08/2024 Fusion of spine, cervical region (ICD-10 - M43.22) 1. I have the following workability recommendations: A. 10-pounds lifting maximum. B. May work up to 2 hours per shift. C. Please allow to sit or stand as needed. D. Avoid reaching and lifting above shoulder height. 2. We will reevaluate this recommendation in about 4 weeks. 3. The patient is making tremendous progress after her 2-level surgical fusion surgery on April 24, 2024. Symptoms have declined following the surgery. We are in a strength building rehabilitation process. I'm expecting a good result, ultimately. Bone is still growing at this stage. Full rehabilitation is still going to require months. The patient is currently at 15 weeks postoperative (nearly 4 months). Beginning at 6 months postoperative we can consider adding cervical rotation MedX work. We will likely be able to do so. I recommend we see the patient on a once per week basis up until the 6 month ryder at which point we would resume therapy at twice per week. 4. The patient did see her surgeon, Dr. Tejeda, on July 25, 2024. CT scanning of the cervical spine was obtained. There is already vigorous bone growth occurring at the fusion surgery site. The patient is using a bone growth stimulator about 4 hours per day. She meets with Dr. Tejeda again on October 25, 2024. He advised the patient that we can begin providing workability recommendations. She has been off work up to this point. The patient is still an employee of [employer]. 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 5. The patient is being seen at [facility] in [place], [place]. 6. Today's evaluation occupied a full 40 minutes altogether including time spent preparing to see the patient and then providing this documentation. Prior to seeing the patient I did review office visit notes, therapy notes, exercise data, and previous imaging. We did accommodate a worker/QRC/physic tavo meeting. I did provide the worker and her employer with a detailed work ability letter 09/12/2024 Fusion of spine, cervical region (ICD-10 - M43.22) 1. Today I had the opportunity to evaluate this patient once. I have the following work ability recommendations: A. 15-pounds lifting maximum. This represents a relaxation of the previous restriction. B. 2-hours of work per shift. C. Avoid reaching over shoulder height. D. Please allow to sit or stand as needed. 2. The patient continues to make progress following her 2-level cervical spine fusion surgery performed on April 24, 2024. We are engaged in therapy 1 time per week. She is in our phase II post cervical spine fusion protocol. This allows for use of the cervical extension piece of MedX equipment, but not rotation. Beginning October 10, 2024, she can transition to our phase 3 protocol, adding rotation. 3. I recommend continuing visits at 1 time per week until October 10, 2024, then continuing therapy 2 times per week. 4. I am expecting an excellent outcome, it will just take time. Michelle has tremendous upside rehabilitation potential in terms of the strength gains available to her. We do have to go slowly given the underlying condition and surgery. 5. I recommend Michelle return in approximately 4 weeks for reevaluation. 6. Today I did renew the patient's Naprosyn prescription. I also prescribed in electric stimulation unit. Those treatments have been helpful in therapy to control symptoms. I think the patient will definitely benefit from having a unit she could continue to use more frequently. 7. Today's evaluation occupied a full 40 minutes altogether including time spent preparing to see the patient and then providing this documentation. Prior to seeing the patient I did review previous office visit notes, therapy notes, exercise data, and imaging. We did accommodate a worker/QRC/physic tavo meeting. I did provide the worker and her employer with a work ability letter. 04/03/2025 Other cervical disc [...] consultation notes. In addition, we accommodated a worker/QRC/physic tavo meeting. We also provided the worker and their employer with a detailed work ability letter. 06/27/2024 Other I, Surendra Prescott, am serving as a scribe to document [...] performed and the decisions made by me. 1. Please see the highly detailed HPI section of this report for a review of previous treatment. 2. Michelle did undergo a C5-C7 ACDF procedure with Dr. Tejeda of [facility] on April 24, 2024. This puts Michelle at 9 weeks postoperative at this time. She is here for postoperative therapy. Right now she would be an our phase 1 protocol, though at 11 weeks, if there are no complications, we can advance to phase II. We can then add cervical extension MedX work. We do not typically use the cervical rotation piece of MedX equipment until 6 months, or more. 3. Michelle is enjoying a very good outcome so far from her surgery. Symptoms which were severe such as neck pain, cervicogenic headache, right-sided arm cervical radiculopathy, and scapulothoracic pain are all improving. 4. Michelle remains an employee of [employer]. Currently Dr. Tejeda has Michelle off work at least until July 25 when they meet again. 5. I believe Michelle is an excellent candidate for the type of treatment available here at [facility]. I believe she will benefit from core and deep core muscle strength building to support the spine. We will utilize our MedX equipment to isolate on critical muscle groups to achieve, first, muscle re-education, recruitment and activation, and then strength. Range of motion and strength will be measured objectively, and the patient will work towards resistance goals calculated for them by the therapists. As noted above, we have 3 different protocols depending upon the timeline following fusion surgery. 6. Both physical therapists and occupational therapists will have input into developing the patient's plan of care. This will be an active biopsychosocial care approach. In some cases, we will utilize a cognitive-behavio ral coaching emphasis. 7. In addition to strength building during appointment times, the patient will be provided a home exercise progression tailored to their needs. The goal will be to further improve functional mobility, strength, endurance and in some cases balance. The need for an aftercare exercise program will be addressed to help the patient maintain benefits gained during their course of treatment. 8. Today's evaluation occupied a full 40 minutes altogether including time spent preparing to see the patient and then providing this documentation. Prior to seeing the patient I did review previous office visit notes, therapy notes, exercise data, and imaging. We did accommodate a worker/QRC/physic tavo meeting. Other program topics and elements may include: 1. Instruction in body mechanics, ergonomics, and functional training. 2. Pain neuroscience. 3. Sleep and diet. 4. Non-pharmacologic pain management. 5. Manual therapy techniques including self-care. 6. Meditation techniques such as conscious napping. 08/08/2024 Other I, Ester Bender , am serving [...] performed and the decisions made by me. 1. I have the following workability recommendations: A. 10-pounds lifting maximum. B. May work up to 2 hours per shift. C. Please allow to sit or stand as needed. D. Avoid reaching and lifting above shoulder height. 2. We will reevaluate this recommendation in about 4 weeks. 3. The patient is making tremendous progress after her 2-level surgical fusion surgery on April 24, 2024. Symptoms have declined following the surgery. We are in a strength building rehabilitation process. I'm expecting a good result, ultimately. Bone is still growing at this stage. Full rehabilitation is still going to require months. The patient is currently at 15 weeks postoperative (nearly 4 months). Beginning at 6 months postoperative we can consider adding cervical rotation MedX work. We will likely be able to do so. I recommend we see the patient on a once per week basis up until the 6 month ryder at which point we would resume therapy at twice per week. 4. The patient did see her surgeon, Dr. Tejeda, on July 25, 2024. CT scanning of the cervical spine was obtained. There is already vigorous bone growth occurring at the fusion surgery site. The patient is using a bone growth stimulator about 4 hours per day. She meets with Dr. Tejeda again on October 25, 2024. He advised the patient that we can begin providing workability recommendations. She has been off work up to this point. The patient is still an employee of [employer]. 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 5. The patient is being seen at [facility] in [place], [place]. 6. Today's evaluation occupied a full 40 minutes altogether including time spent preparing to see the patient and then providing this documentation. Prior to seeing the patient I did review office visit notes, therapy notes, exercise data, and previous imaging. We did accommodate a worker/QRC/physic tavo meeting. I did provide the worker and her employer with a detailed work ability letter 09/12/2024 Other I, Ester Bender , am serving [...] performed and the decisions made by me. 1. Today I had the opportunity to evaluate this patient once. I have the following work ability recommendations: A. 15-pounds lifting maximum. This represents a relaxation of the previous restriction. B. 2-hours of work per shift. C. Avoid reaching over shoulder height. D. Please allow to sit or stand as needed. 2. The patient continues to make progress following her 2-level cervical spine fusion surgery performed on April 24, 2024. We are engaged in therapy 1 time per week. She is in our phase II post cervical spine fusion protocol. This allows for use of the cervical extension piece of MedX equipment, but not rotation. Beginning October 10, 2024, she can transition to our phase 3 protocol, adding rotation. 3. I recommend continuing visits at 1 time per week until October 10, 2024, then continuing therapy 2 times per week. 4. I am expecting an excellent outcome, it will just take time. Michelle has tremendous upside rehabilitation potential in terms of the strength gains available to her. We do have to go slowly given the underlying condition and surgery. 5. I recommend Michelle return in approximately 4 weeks for reevaluation. 6. Today I did renew the patient's Naprosyn prescription. I also prescribed in electric stimulation unit. Those treatments have been helpful in therapy to control symptoms. I think the patient will definitely benefit from having a unit she could continue to use more frequently. 7. Today's evaluation occupied a full 40 minutes altogether including time spent preparing to see the patient and then providing this documentation. Prior to seeing the patient I did review previous office visit notes, therapy notes, exercise data, and imaging. We did accommodate a worker/QRC/physic tavo meeting. I did provide the worker and her employer with a work ability letter. 10/17/2024 Other I, Jean Carlos Mooney, am serving as a scribe to document [...] performed and the decisions made by me. 1. The patient has completed 14 visits of therapy since her surgical date on April 24, 2024. Currently she is our phase II protocol after fusion surgery. I recommend we can advance to phase III immediately. This allows us to elevate resistance goals for cervical extension, and add cervical rotation. 2. We have been recommending that Michelle can work light duty. Currently her employer is not providing her with hours. It remains our ultimate goal to see Michelle return to work full duty at [employer]. 3. Things are going well overall. Michelle's symptom levels are markedly reduced from her presurgical status. She is engaged in therapy and making progress. I anticipate we will be able to relax restrictions somewhat in the near future. 4. I have the following work ability recommendations: A. 20-pounds lifting maximum. This represents another relaxation of previous restrictions. B. 2-hours of work per shift. We would like to see the worker well-established at 2 hours per day before increasing hours. Our goal is still to see the worker released to full duty in the future. C. Please allow to sit or stand as needed. 5. Return to clinic in approximately 4 weeks. 6. Today's evaluation occupied a full 40 minutes altogether including time spent preparing to see the patient and then providing this documentation. Prior to seeing the patient I did review previous office visit notes, therapy notes, exercise data, and imaging. We did accommodate a worker/QRC/physic tavo meeting. I did provide the worker and her employer with a detailed work ability letter. 11/14/2024 Other I, Albert Herring , am serving as a scribe to [...] performed and the decisions made by me. 1. The patient is experiencing what appears to be a very good result from her C5-[address] Tejeda dating to April 24, 2024. Given her progress, I am optimistic that she is going to eventually enjoy an excellent result, returning to full employment. 2. The employer has been unresponsive to contacts regarding what Michelle's work restrictions would need to be in order for them to offer her light duty. Today we are relaxing her restrictions once more reflecting her improvement. 3. I have the following work ability recommendations: A. May work up to 4 hours per day. B. 20- pound lifting maximum C. No overhead work. 4. I recommend the patient return to see me in about 6 weeks. 5. The patient has been making very good progress, objectively measured. There remains a good deal of additional upside strength building potential. 6. We have 5 additional visits of strength building therapy approved. For the patient to achieve her strength goals I recommend the approval of up to 10 additional visits. I don't anticipate needing more visits beyond that. Our goal remains a return to full duty. I believe these visits will be necessary to achieve that goal. Given the underlying diagnosis of cervical fusion, we were only recently able to add use of our cervical rotation piece of MedX equipment. 7. Today's evaluation occupied a full 40 minutes altogether including time spent preparing to see the patient and then providing this documentation. Prior to seeing the patient I did review previous office visit notes, therapy notes, exercise data, and imaging. We accommodated a worker/QRC/physic tavo meeting. We discussed work ability, and I did provide the worker and her employer with a detailed work ability letter. 12/23/2024 Other I, Lupe Mendoza, am serving as a scribe to document services personally performed by Ptael Arias MD, based upon my observations and [...] performed and the decisions made by me. The pt. continues to make great progress in therapy. She has 5 more visits approved. We will likely use all 5 helping her get to max strength. Torso rotation strength is lagging given we did not start it until she reached 6 months post-op from her cervical fusion surgery. The pt. has made a significant effort to find work. 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 I endorse this. Today we did relax the pts. restrictions considerably. Re-evaluate in 4-6 weeks. Today's evaluation occupied a full 40 minutes altogether including time spent preparing to see the patient and providing this documentation. Prior to seeing the patient I did review outside medical records including imaging, office visit notes, exercise data, therapy notes, and consultation notes. In addition, we accommodated a worker/QRC/physic tavo meeting. We also provided the worker and her employer with a detailed work ability letter. 01/20/2025 Other I, Lupe Mendoza, am serving as a scribe to document [...] performed and the decisions made by me. The patient returns for re-evaluation after 30 visits in rehabilitation. They are making strength gains, objectively measured, in the MedX equipment. They are participating in their home exercise program. The patient is enjoying overall symptom relief along with functional improvements. However they continue to have symptoms and functional deficits. A recent increase in thoracic pain led to Dr. Tejeda ordering thoracic spine MRI The exercise data shows there are significant additional strength gains available to the patient. This represents additional upside rehabilitation potential. The patient would like to continue to work towards their resistance goals, and I strongly recommend it. The pt is making a successful transition to a new job. She will benefit from cutting back on her hours modestly temporarily. I recommend 4 days of work per week, with only up to 2 days in a row. I anticipate an ultimate return to full duty without restrictions. Her new job appears to be a good fit. I believe she will have a successful course of rehabilitation, and recovery from a significant surgery. Today's evaluation occupied a full 40 minutes altogether including time spent preparing to see the patient and providing this documentation. Prior to seeing the patient I did review outside medical records including imaging, office visit notes, exercise data, therapy notes. In addition, we accommodated a worker/QRC/physic tavo meeting. We also provided the worker and her employer with a detailed work ability letter. 02/03/2025 Other I, Jessica Haresh , am serving as a scribe to document services personally performed by Paetl Arias MD, based upon my observations and the provider's statements to me. All documentation has been reviewed by the aforementioned doctor prior to being entered into the official medical record. IPatel MD attest that the above named individual is acting in scribe capacity, has observed my performance of the services and has documented them in accordance with my direction. The documentation recorded by the scribe accurately reflects the service I personally performed and the decisions made by me. The pt is suffering from a set-back in terms of suffering increased symptoms in the scapular region between the shoulder blades. This comes on the heels of consistent and impressive improvements since her fusion surgery. The pt has been referred by Dr. Tejeda's staff for a mid thoracic EDDIE. The pt will be removed from work for one week and then have her work ability re-evaluated. We will add our 2 torso rotation and extension machine to treatment and continue at 2 times per week. Today's evaluation occupied a full 35 minutes altogether including time spent preparing to see the patient and providing this documentation. Prior to seeing the patient I did review outside medical records including imaging, office visit notes, exercise data, therapy notes, and consultation notes. In addition, we accommodated a worker/QRC/physic tavo meeting. We also provided the worker and their employer with a work ability letter. 02/13/2025 Other Antonette, Ester Napoleon , am serving as a scribe to document services personally performed by Patel Arias MD, based upon my observations and the provider's statements to me. All documentation has been reviewed by the aforementioned doctor prior to being entered into the official medical record. Patel Whitman MD attest that the above named individual is acting in scribe capacity, has observed my performance of the services and has documented them in accordance with my direction. The documentation recorded by the scribe accurately reflects the service I personally performed and the decisions made by me. The pt continues to suffer high levels of symptoms. I recommend she continue to be off work over the next 3 weeks. The pt was unable to recieve the thoracic EDDIE ordered by Dr. Tejeda due to high blood sugar. It has been rescheduled. Today's evaluation occupied a full 35 minutes altogether including time spent preparing to see the patient and providing this documentation. Prior to seeing the patient I did review outside medical records including imaging, office visit notes, exercise data, therapy notes, and consultation notes. 02/27/2025 Other Antonette, Jessica Hutson , am serving as a scribe to document services personally performed by Patel Arias MD, based upon my observations and the provider's statements to me. All documentation has been reviewed by the aforementioned doctor prior to being entered into the official medical record. Patel Whitman MD attest that the above named individual is acting in scribe capacity, has observed my performance of the services and has documented them in accordance with my direction. The documentation recorded by the scribe accurately reflects the service I personally performed and the decisions made by me. Michelle's last therapy visit is currently scheduled for 03/11/25. Recent T78 EDDIE at [facility], ordered by Dr. Tejeda/Ximena Deshpande PAC. No relief yet. Consider TPI's. Medication management with Dr. Tejeda. Currently methocarbamol and naproxyn. Work restrictions were formulated today. See [place] letter. The pt will enter a job search process. RTC 4-6 weeks. Today's evaluation occupied a full 40 minutes altogether including time spent preparing to see the patient and providing this documentation. Prior to seeing the patient I did review outside medical records including imaging, office visit notes, exercise data, therapy notes, and consultation notes. In addition, we accommodated a worker/QRC/physic tavo meeting. We also provided the worker and their employer with a detailed work ability letter. 04/03/2025 Other Antonette, Ester Bender , am serving as a scribe to document services personally performed by Patel Arias MD, based upon my observations and the provider's statements to me. All documentation has been reviewed by the aforementioned doctor prior to being entered into the official medical record. Patel Whitman MD attest that the above named individual [...] consultation notes. In addition, we accommodated a worker/QRC/physic tavo meeting. We also provided the worker and their employer with a detailed work ability letter. Plan Of Treatment Pending Test Test Name Order Date MRI : Cervical Spines 05/19/2023 Next Appt Details Provider Name:Patel Forbes Hugo , 05/15/2025 03:15:00 PM, [address] [place], [address], Insurance Providers Payer Name Payer Address Payer Phone Subscriber Number Group Number Insured Name Patient Relationship to Insured Coverage Start Date Coverage End Date Bonita Claims [facility] [address] [address] [facility] [id number] [facility] Medical (General) History Medical History History ICD Code Diabetes Polycystic Ovarian Syndrome Depression Anxiety Hypothyroidism Headache Hyperlipidemia Hidradenitis suppurativa Surgical History Surgery Date(Month/Year) Right Ankle Bilateral Carpal Tunnel Tonsillectomy C5-7 ACDF 04/24/2024 Hospitalization History Reason Date(Month/Year)
== END 2025-04-23 15:59 | disposition home or self-care (01) ==
PROVIDERS: Emergency Provider Family Medicine
DX: L03.116 Cellulitis of left lower limb (principal)
CPT/HCPCS: 96372; 99283; 99284; J0696